=== PATIENT | female | born 1935 | race Caucasian/White ===

== ENCOUNTER 2016-02-14 20:04 | Inpatient (IN) ==
--- NOTE | 2016-02-14 20:31 | Emergency Department Note ---
Disposition Clinical Impression: Community acquired pneumonia Disposition: Admitted As Inpatient Condition: Good Referrals: Dane Thomas MD [Primary Care Provider] - Forms: ED Satisfaction Letter SOB HPI - General Chief Complaint: ED Shortness of Breath/Dyspnea Stated Complaint: SOB / Falls Time Seen by Provider: 02/14/16 20:07 Source: patient, EMS Limitations: no limitations Nursing Notes Reviewed: Yes Vital Signs Reviewed: Yes - History of Present Illness Patient complains of a fall off the couch today. Patient she was going to use the bathroom and had a slip and fall. Patient states she had her right side and complains of pain in the area. Patient claims shortness of breath with states this is normal for her as she has a history of COPD. Patient does not chest pain denies fevers or chills denies vision changes. - Related Data Home Medications Medication Instructions Recorded Confirmed Amlodipine [Norvasc] 2.5 mg PO DAILY 01/21/15 02/14/16 Ipratropium/Albuterol Neb [Duoneb] 3 ml IH Q6HR PRN 01/21/15 02/14/16 Lisinopril [Zestril] 40 mg PO DAILY 01/21/15 02/14/16 Pravastatin Sodium [Pravachol] 40 mg PO DAILY 01/21/15 02/14/16 Theophylline Anhydrous [Theodur] 300 mg PO DAILY 01/21/15 02/14/16 Isosorbide DInitrate [Isosorbide 10 mg PO BID 07/06/15 02/14/16 Dinitrate] Oxybutynin Chloride [Ditropan Xl] 5 mg PO DAILY 07/28/15 02/14/16 Oxygen 4 l NS CONT 07/28/15 02/14/16 Budesonide/Formoterol 160/4.5 2 puff IH BID 11/12/15 02/14/16 [Symbicort 160/4.5] Metoprolol [Lopressor] 25 mg PO BID 11/12/15 02/14/16 Tiotropium [Spiriva] 18 mcg IH DAILY 11/12/15 02/14/16 Cholecalciferol (Vitamin D3) 3,000 unit PO DAILY 12/20/15 02/14/16 [Vitamin D3] Omeprazole [PriLOSEC] 40 mg PO DAILY 12/20/15 02/14/16 Rivaroxaban [Xarelto] 20 mg PO HS 01/10/16 02/14/16 Furosemide [Lasix] 20 mg PO DAILY 02/14/16 02/14/16 HYDROcodone/Acet 5/325 mg [Star 1 tab PO Q6H PRN 02/14/16 02/14/16 5-325 mg] Previous Rx's Medication Instructions Recorded Docusate [Colace] 100 mg PO BID #30 capsule 12/24/15 Doxycycline 100 mg PO BID #6 capsule 01/14/16 Allergies Allergy/AdvReac Type Severity Reaction Status Date / Time acetaminophen [From Tylenol] Allergy Unknown See Verified 02/14/16 22:38 Comments Amoxicillin Allergy Unknown See Verified 02/14/16 22:38 Comments clarithromycin Allergy Unknown See Verified 02/14/16 22:38 Comments clavulanic acid Allergy Unknown See Verified 02/14/16 22:38 Comments codeine Allergy Unknown See Verified 02/14/16 22:38 Comments gabapentin Allergy Unknown See Verified 02/14/16 22:38 Comments Iodinated Contrast Media - Allergy Unknown See Verified 02/14/16 22:38 Oral and Comments Penicillins Allergy Unknown See Verified 02/14/16 22:38 Comments Sulfa (Sulfonamide Allergy Unknown See Verified 02/14/16 22:38 Antibiotics) Comments All systems ED: reviewed and negative except as stated. Past Medical History - Past Medical History Source: patient Medical history: Reports: arthritis, COPD, coronary artery disease, GERD, GI bleed, hyperlipidemia, hypertension, myocardial infarction, osteoporosis, pulmonary embolus, renal disease, SVT, other Surgical history: Reports: cataract, other Psychiatric history: Reports: anxiety, depression - Social History Smoking Status: Former smoker Smokeless Tobacco Status: No Alcohol use: Reports: none Drug use: Reports: none Physical Exam - General Limitations: no limitations General appearance: alert, in no apparent distress, anxious - Head Head exam: atraumatic, normocephalic, normal inspection - Eye Eye exam: Present: normal appearance, PERRL, EOMI - ENT ENT exam: normal exam, normal oropharynx, mucous membranes moist - Neck Neck exam: Present: normal inspection, full ROM, trachea midline - Chest Chest inspection: Present: normal inspection, symmetric chest wall rise - Respiratory Respiratory exam: Present: accessory muscle use, other (Right lower rib pain to palpation) - Cardiovascular Cardiovascular exam: Present: normal rhythm, tachycardia, normal heart sounds - Abdominal Exam Abdominal exam: Present: soft, Non-Tender. Absent: tenderness, distention, guarding, rebound, rigidity - Extremities Exam Extremities exam: Present: normal inspection, full ROM. Absent: tenderness, pedal edema - Back Exam Back exam: Present: normal inspection, full ROM. Absent: tenderness - Neurological Exam Neurological exam: Present: alert, oriented X3 - Psychiatric Psychiatric exam: Present: normal affect, normal mood - Skin Skin exam: Present: warm, dry, intact, normal color Course Vital Signs Temperature 99.6 F 02/14/16 20:07 Pulse Rate 121 02/14/16 20:07 Respiratory Rate 36 02/14/16 20:07 Blood Pressure 130/79 02/14/16 20:07 O2 Sat by Pulse Oximetry 98 02/14/16 20:07 Temperature 99.6 F 02/14/16 20:07 Pulse Rate 107 02/14/16 22:02 Respiratory Rate 24 02/14/16 22:02 Blood Pressure 121/77 02/14/16 22:02 O2 Sat by Pulse Oximetry 93 L 02/14/16 22:02 Oxygen Delivery Oxygen Delivery Nasal Cannula Shortness of Breath/Dyspnea - Differential Diagnosis Likely: acute exacerbation of chronic obstructive airways disease, congestive heart failure, pneumonia, pulmonary embolism - Lab Data Lab results reviewed: Yes I reviewed the patient's lab results. Result diagrams: 02/14/16 21:05 02/14/16 21:05 Lab Results 02/14/16 02/14/16 02/14/16 Range/Units 21:05 21:05 21:05 WBC 17.0 H (4.3-11.1) K/mcL RBC 4.16 (3.82-4.97) M/mcL Hgb 12.7 (11.5-15.4) g/dL Hct 37.1 (35.3-44.9) % MCV 89.2 (83.0-100.0) fL MCH 30.5 (28.0-33.3) pg MCHC 34.2 (31.6-35.5) g/dL RDW 13.8 (11.5-14.5) % Plt Count 294 (140-400) K/mcL MPV 9.2 L (9.4-12.4) fL Immature Gran % 0.5 (0-4) % Seg Neutrophils % 89.3 % Lymphocytes % 6.2 % Monocytes % 3.5 % Eosinophils % 0.3 % Basophils % 0.2 % Neutrophils # 15.2 H (1.6-8.9) K/mcL Lymphocytes # 1.1 (0.6-4.6) K/mcL Monocytes # 0.6 (0.0-1.3) K/mcL Eosinophils # 0.1 (0.0-0.6) K/mcL Basophils # 0.0 (0.0-0.2) K/mcL PT 19.0 H (9.4-12.1) Seconds INR 1.7 APTT 29.2 (26.0-36.0) Seconds Sodium 133 L (136-145) mEq/L Potassium 2.9 L (3.5-4.5) mEq/L Chloride 98 (98-109) mEq/L Carbon Dioxide 24 (19-29) mEq/L BUN 13 (7-20) mg/dL Creatinine 0.83 (0.57-1.11) mg/dL Est GFR ( Amer) > 60 (> 60) Est GFR (Non-Af Amer) > 60 (> 60) BUN/Creatinine Ratio 16 (6-26) Glucose 109 H (70-99) mg/dL Calculated Osmolality 277 L (280-300) Lactic Acid (0.5-2.2) mmol/L Calcium 8.3 L (8.6-10.8) mg/dL Total Bilirubin 0.7 (0.2-1.2) mg/dL AST 27 (5-34) Units/L ALT 17 (0-55) Units/L Alkaline Phosphatase 97 (38-126) Units/L Troponin I (0-0.03) ng/mL B-Natriuretic Peptide (0-100) pg/mL Serum Total Protein 5.7 L (6.0-8.3) g/dL Albumin 2.6 L (3.5-5.0) g/dL Globulin 3.1 (2.4-3.5) g/dL Albumin/Globulin Ratio 0.8 L (1.1-2.2) 02/14/16 02/14/16 02/14/16 Range/Units 21:05 21:05 21:05 WBC (4.3-11.1) K/mcL RBC (3.82-4.97) M/mcL Hgb (11.5-15.4) g/dL Hct (35.3-44.9) % MCV (83.0-100.0) fL MCH (28.0-33.3) pg MCHC (31.6-35.5) g/dL RDW (11.5-14.5) % Plt Count (140-400) K/mcL MPV (9.4-12.4) fL Immature Gran % (0-4) % Seg Neutrophils % % Lymphocytes % % Monocytes % % Eosinophils % % Basophils % % Neutrophils # (1.6-8.9) K/mcL Lymphocytes # (0.6-4.6) K/mcL Monocytes # (0.0-1.3) K/mcL Eosinophils # (0.0-0.6) K/mcL Basophils # (0.0-0.2) K/mcL PT (9.4-12.1) Seconds INR APTT (26.0-36.0) Seconds Sodium (136-145) mEq/L Potassium (3.5-4.5) mEq/L Chloride (98-109) mEq/L Carbon Dioxide (19-29) mEq/L BUN (7-20) mg/dL Creatinine (0.57-1.11) mg/dL Est GFR ( Amer) (> 60) Est GFR (Non-Af Amer) (> 60) BUN/Creatinine Ratio (6-26) Glucose (70-99) mg/dL Calculated Osmolality (280-300) Lactic Acid 1.4 (0.5-2.2) mmol/L Calcium (8.6-10.8) mg/dL Total Bilirubin (0.2-1.2) mg/dL AST (5-34) Units/L ALT (0-55) Units/L Alkaline Phosphatase (38-126) Units/L Troponin I 0.08 H* (0-0.03) ng/mL B-Natriuretic Peptide 160 H (0-100) pg/mL Serum Total Protein (6.0-8.3) g/dL Albumin (3.5-5.0) g/dL Globulin (2.4-3.5) g/dL Albumin/Globulin Ratio (1.1-2.2) - Radiology Data Radiology results reviewed: Yes I reviewed the patient's radiology results. Chest X-Ray 02/14/16 20:23 IMPRESSION: Right lower lobe opacity suspicious for pneumonia, possibly postobstructive. Subpleural right lower lobe mass and enlarged mediastinal lymph nodes identified on prior CT are not well appreciated in this limited radiographic study. D/ / Devon Yan MD / Devon Yan MD Interpreting Provider: Devon Yan MD - EKG Data EKG attestation: Yes I reviewed and interpreted this EKG. EKG shows normal: Reports: sinus rhythm Rate: Reports: tachycardia Critical Care Time Total Critical Care Time: 30 Attestation: Chest X-Ray 02/14/16 20:23 IMPRESSION: Right lower lobe opacity suspicious for pneumonia, possibly postobstructive. Subpleural right lower lobe mass and enlarged mediastinal lymph nodes identified on prior CT are not well appreciated in this limited radiographic study. D/ / 02/14/2016 21:31:03 Devon Yan MD / frances Interpreting Provider: Devon Yan MD
[2016-02-14 21:14] LABS: Basophils % 0.2 %; Eosinophils # 0.1 K/mcL (0.0-0.6); Eosinophils % 0.3 %; Hematocrit 37.1 % (35.3-44.9); Hemoglobin 12.7 g/dL (11.5-15.4); Immature Granulocytes % 0.5 % (0-4); Lymphocytes # 1.1 K/mcL (0.6-4.6); Lymphocytes % 6.2 %; Mean Corpuscular HGB Conc 34.2 g/dL (31.6-35.5); Mean Corpuscular Hemoglobin 30.5 pg (28.0-33.3); Mean Corpuscular Volume 89.2 fL (83.0-100.0); Mean Platelet Volume 9.2 fL (9.4-12.4); Monocytes # 0.6 K/mcL (0.0-1.3); Monocytes % 3.5 %; Neutrophils # 15.2 K/mcL (1.6-8.9); Platelet Count 294 K/mcL (140-400); Red Blood Count 4.16 M/mcL (3.82-4.97); Red Cell Distribution Width 13.8 % (11.5-14.5); Segmented Neutrophils % 89.3 %
[2016-02-14 21:20] LABS: INR 1.7
[2016-02-14 21:23] LABS: Activated Partial Thrombo Time 29.2 Seconds (26.0-36.0)
[2016-02-14] MEDS ORDERED: Levofloxacin 750 MG/150 ML 750 MG/150 ML BAG IVPB ONE (21:28)
[2016-02-14 21:30] LABS: Alanine Aminotransferase 17 Units/L (0-55); Albumin 2.6 g/dL (3.5-5.0); Albumin/Globulin Ratio 0.8 (1.1-2.2); Alkaline Phosphatase 97 Units/L (38-126); Aspartate Amino Transferase 27 Units/L (5-34); BUN/Creatinine Ratio 16 (6-26); Bilirubin,Total 0.7 mg/dL (0.2-1.2); Blood Urea Nitrogen 13 mg/dL (7-20); Calcium 8.3 mg/dL (8.6-10.8); Carbon Dioxide 24 mEq/L (19-29); Chloride 98 mEq/L (98-109); Globulin 3.1 g/dL (2.4-3.5); Glucose 109 mg/dL (70-99); Osmolality,Calculated 277 (280-300); Potassium 2.9 mEq/L (3.5-4.5); Sodium 133 mEq/L (136-145); Total Protein 5.7 g/dL (6.0-8.3); eGFR For African Americans > 60 (> 60); eGFR For Non-African Americans > 60 (> 60)
[2016-02-15] MEDS ORDERED: Ipratropium/Albuterol Neb 3 ML ONE (00:22)
[2016-02-15] MEDS ORDERED: Naloxone 0.4 MG/ML INJ IVP PRN (00:49)
--- NOTE | 2016-02-15 00:56 | Internal Med History&Physical ---
Date of Encounter: 02/15/16 Time of Encounter: 00:54 Assessment and Plan (1) Community acquired pneumonia Current visit: Yes Status: Suspected Worsening SOB after fall Diffuse intermittent wheezing and using accessory muscles on exam Leukocytosis present CXR reveals possible RLL infiltrate. Pt. has dense breasts. May be shadow. Admit as inpatient. Expect her to stay at least 2 midnights Duonebs. Levaquin PO for now. If poor response, will consider escalation due to recurrent hospital stays and risk of MRSA, Pseudomonas and MDR E.coli High risk due to risk of resp. failure that may need intubation and mechanical ventilation She is FULL CODE and wants to be intubated. Mech. vent. for 20 days after which her daughter can decide regarding withdrawal of care per the patient BIPAP support (2) Acute chest wall pain Current visit: Yes Status: Acute From fall Lidoderm patch (3) Acute respiratory failure with hypoxia Current visit: Yes Status: Acute As above BIPAP for now (4) COPD (chronic obstructive pulmonary disease) Current visit: Yes Status: Chronic Acute COPD exacerbation due to pneumonia Will start iv steroids Levaquin PO Qualifiers: COPD type: COPD with acute exacerbation Qualified Code(s): J44.1 - Chronic obstructive pulmonary disease with (acute) exacerbation (5) Hypertension Current visit: Yes Status: Chronic Resume home meds Qualifiers: Hypertension type: essential hypertension Qualified Code(s): I10 - Essential (primary) hypertension (6) Lung mass Current visit: No Status: Chronic Chronic Oncology consult and notes reviewed No intervention per prior notes due to high risk of pneumothorax with CT biopsy of mass. Out pt. oncology follow up per oncology notes (7) Pulmonary embolism Current visit: Yes Status: Chronic Continue xarelto Qualifiers: Pulmonary embolism type: other Chronicity: acute Acute cor pulmonale presence: without acute cor pulmonale Qualified Code(s): I26.99 - Other pulmonary embolism without acute cor pulmonale Internal Medicine - H&P: HPI Chief complaint: Fall; SOB Admitted From: Emergency Dept Plans for Post Hospital Care: Home History of present illness: Ms. Jones is a 80 year old female to presented to the emergency room after she had a fall. The patient states that she slid out of her couch and hit the right side of her chest. She has pain on the right chest that is sharp in nature with no radiation of 5/10. Aggravated with breathing. Associated with shortness of breath worse than her baseline. No cough but has wheezing. No nausea or vomiting. Reports chronic constipation. Past Med Surg Social Fam HX - Past Medical History Attestation: Yes The following information was validated with the patient. Source: patient, old records reviewed Medical history: arthritis, COPD, coronary artery disease, GERD, GI bleed, hyperlipidemia, hypertension, myocardial infarction, osteoporosis, pulmonary embolus, renal disease, SVT, other Psychiatric history: anxiety, depression - Past Surgical History Surgical History: cataract, other - Social History Smoking Status: Former smoker Smokeless Tobacco Status: No Alcohol use: none Drug use: none - Family History Mother Living Status: Hx Family Cardiac Disorders: (HTN) Hx Family Neurologic Disorders: Yes (alzheimers) Father Living Status: Hx Family Cancer: Yes (brain cancer) Son Adopted: No Living Status: Daughter Adopted: No Living Status: Still Living Hx Family Cancer: Yes (melanoma) Internal Medicine - H&P: Meds Amlodipine [Norvasc] 2.5 mg PO DAILY 01/21/15 [History] Ipratropium/Albuterol Neb [Duoneb] 3 ml IH Q6HR PRN 01/21/15 [History] Lisinopril [Zestril] 40 mg PO DAILY 01/21/15 [History] Pravastatin Sodium [Pravachol] 40 mg PO DAILY 01/21/15 [History] Theophylline Anhydrous [Theodur] 300 mg PO DAILY 01/21/15 [History] Isosorbide DInitrate [Isosorbide Dinitrate] 10 mg PO BID 07/06/15 [History] Oxybutynin Chloride [Ditropan Xl] 5 mg PO DAILY 07/28/15 [History] Oxygen 4 l NS CONT 07/28/15 [History] Budesonide/Formoterol 160/4.5 [Symbicort 160/4.5] 2 puff IH BID 11/12/15 [ History] Metoprolol [Lopressor] 25 mg PO BID 11/12/15 [History] Tiotropium [Spiriva] 18 mcg IH DAILY 11/12/15 [History] Cholecalciferol (Vitamin D3) [Vitamin D3] 3,000 unit PO DAILY 12/20/15 [History] Omeprazole [PriLOSEC] 40 mg PO DAILY 12/20/15 [History] Docusate [Colace] 100 mg PO BID #30 capsule 12/24/15 [Rx] Rivaroxaban [Xarelto] 20 mg PO HS 01/10/16 [History] Doxycycline 100 mg PO BID #6 capsule 01/14/16 [Rx] Furosemide [Lasix] 20 mg PO DAILY 02/14/16 [History] HYDROcodone/Acet 5/325 mg [Taylor 5-325 mg] 1 tab PO Q6H PRN 02/14/16 [History] Allergies acetaminophen [From Tylenol] Allergy (Unknown, Verified 02/14/16 22:38) See Comments UNABLE TO CONFIRM REACTION- ALL ALLERGIES TAKEN FROM [facility] LAST APPT. Amoxicillin Allergy (Unknown, Verified 02/14/16 22:38) See Comments UNABLE TO CONFIRM REACTION- ALL ALLERGIES TAKEN FROM [facility] LAST APPT. clarithromycin Allergy (Unknown, Verified 02/14/16 22:38) See Comments UNABLE TO CONFIRM REACTION- ALL ALLERGIES TAKEN FROM [facility] LAST APPT. clavulanic acid Allergy (Unknown, Verified 02/14/16 22:38) See Comments UNABLE TO CONFIRM REACTION- ALL ALLERGIES TAKEN FROM [facility] LAST APPT. codeine Allergy (Unknown, Verified 02/14/16 22:38) See Comments UNABLE TO CONFIRM REACTION- ALL ALLERGIES TAKEN FROM [facility] LAST APPT. gabapentin Allergy (Unknown, Verified 02/14/16 22:38) See Comments UNABLE TO CONFIRM REACTION- ALL ALLERGIES TAKEN FROM [facility] LAST APPT. Iodinated Contrast Media - Oral and Allergy (Unknown, Verified 02/14/16 22:38) See Comments UNABLE TO CONFIRM REACTION- ALL ALLERGIES TAKEN FROM [facility] LAST APPT. Penicillins Allergy (Unknown, Verified 02/14/16 22:38) See Comments UNABLE TO CONFIRM REACTION- ALL ALLERGIES TAKEN FROM [facility] LAST APPT. Sulfa (Sulfonamide Antibiotics) Allergy (Unknown, Verified 02/14/16 22:38) See Comments UNABLE TO CONFIRM REACTION- ALL ALLERGIES TAKEN FROM [facility] LAST APPT. All Systems PM: A 10-system review of systems was performed and is negative for pertinent findings except as documented above in the HPI. Review of systems: 10 systems have been reviewed and are negative except as mentioned in the history of present illness - Constitutional Vitals: Temp Pulse Resp BP Pulse Ox 100.1 F H 98 35 126/79 93 L 02/15/16 00:15 02/15/16 00:15 02/15/16 00:15 02/15/16 00:15 02/15/16 00:15 Exam: Gen.: Lying in bed. Moderate to severe respiratory distress. Eyes: Pupils equal, round and reactive to light. Extraocular muscles intact. ENT: Dry mucous membranes. No oropharyngeal erythema or discharge. Chest: Reduced breath sounds bilaterally. Intermittent diffuse wheezing present. CVS: First and second heart sounds present. No murmurs, rubs or gallops. Abdomen: Soft, nontender, nondistended. Bowel sounds present. No hepatosplenomegaly. Skin: No decubitus ulcers appreciated. PILOT: No focal neuro deficits present. Psychiatric: Alert, awake and oriented to time, place and person. Lymphatic system: No lymphadenopathy appreciated Internal Med - H&P Results - Labs CBC & Chem 7: 02/14/16 21:05 02/14/16 21:05 - Diagnostic Studies Chest x-ray Status: image reviewed by me (RLL infiltrate vs breast shadows)
[2016-02-15] MEDS ORDERED: NON-FORMULARY MEDICATION 1 EACH EACH (Oxygen [Oxygen] 4 L) NS SCH (01:00)
[2016-02-15] MEDS ORDERED: methylPREDNISolone 125 MG/2 ML VIAL IVP ONE (01:10)
[2016-02-15] MEDS: Ipratropium/Albuterol Neb 3 ML IH SCH ×4 (03:11→21:56)
[2016-02-15] MEDS: *HR* HYDROcodone/Acet 5/325 mg TABLET PO PRN ×2 (03:54→17:27)
[2016-02-15 05:04] LABS: Basophils % 0.2 %; Eosinophils % 0.1 %; Hemoglobin 12.1 g/dL (11.5-15.4); Immature Granulocytes % 0.5 % (0-4); Lymphocytes # 1.6 K/mcL (0.6-4.6); Lymphocytes % 10.5 %; Mean Corpuscular HGB Conc 34.6 g/dL (31.6-35.5); Mean Corpuscular Hemoglobin 30.9 pg (28.0-33.3); Mean Corpuscular Volume 89.3 fL (83.0-100.0); Monocytes # 0.7 K/mcL (0.0-1.3); Monocytes % 4.2 %; Neutrophils # 13.1 K/mcL (1.6-8.9); Platelet Count 268 K/mcL (140-400); Red Blood Count 3.92 M/mcL (3.82-4.97); Red Cell Distribution Width 13.7 % (11.5-14.5); Segmented Neutrophils % 84.5 %
[2016-02-15 05:24] LABS: Alanine Aminotransferase 17 Units/L (0-55); Albumin 2.4 g/dL (3.5-5.0); Albumin/Globulin Ratio 0.8 (1.1-2.2); Alkaline Phosphatase 89 Units/L (38-126); Aspartate Amino Transferase 25 Units/L (5-34); BUN/Creatinine Ratio 16 (6-26); Bilirubin,Total 0.8 mg/dL (0.2-1.2); Blood Urea Nitrogen 13 mg/dL (7-20); Calcium 8.1 mg/dL (8.6-10.8); Carbon Dioxide 26 mEq/L (19-29); Chloride 93 mEq/L (98-109); Globulin 2.9 g/dL (2.4-3.5); Glucose 108 mg/dL (70-99); Osmolality,Calculated 271 (280-300); Potassium 2.8 mEq/L (3.5-4.5); Sodium 130 mEq/L (136-145); Total Protein 5.3 g/dL (6.0-8.3); eGFR For African Americans > 60 (> 60); eGFR For Non-African Americans > 60 (> 60)
[2016-02-15] MEDS: MethylPREDNISolone 40 MG/ML VIAL IVP SCH ×2 (09:21→17:27)
[2016-02-15] MEDS: Cholecalciferol (D-3) 1,000 UNIT TABLET PO SCH (09:22)
[2016-02-15] MEDS: amLODIPine 5 MG TABLET PO SCH (09:22)
[2016-02-15] MEDS: levoFLOXacin 750 MG TABLET PO SCH (09:22)
[2016-02-15] MEDS: Budesonide/Formoterol 160/4.5 MDI IH SCH ×2 (11:35→21:57)
--- NOTE | 2016-02-15 13:53 | Internal Med Progress Note ---
Date of Encounter: 02/15/16 Time of Encounter: 11:00 - Assessment and plan (1) Acute respiratory failure with hypoxia Current Visit: Yes Status: Acute Assessment and plan: Continue supplemental O2. Continue bronchodilator nebulizers. Due to COPD and pneumonia (2) Acute chest wall pain Current Visit: Yes Status: Acute Assessment and plan: Improved. Mild troponin elevation to a peak of 0.09. Likely due to demand ischemia. Trending down now. (3) COPD (chronic obstructive pulmonary disease) Current Visit: Yes Status: Chronic Assessment and plan: On intravenous steroids, nebulizer treatments, O2 supplementation. Continue. Also on levofloxacin. Qualifiers: COPD type: COPD with acute exacerbation Qualified Code(s): J44.1 - Chronic obstructive pulmonary disease with (acute) exacerbation (4) Hypertension Current Visit: Yes Status: Chronic Assessment and plan: Well-controlled. Qualifiers: Hypertension type: essential hypertension Qualified Code(s): I10 - Essential (primary) hypertension (5) Pulmonary embolism Current Visit: Yes Status: Chronic Assessment and plan: Chronic. On Xarelto Qualifiers: Pulmonary embolism type: other Chronicity: acute Acute cor pulmonale presence: without acute cor pulmonale Qualified Code(s): I26.99 - Other pulmonary embolism without acute cor pulmonale (6) Community acquired pneumonia Current Visit: Yes Status: Suspected Assessment and plan: On Levofloxacin. - Subjective Interval history: Patient feels her breathing is improved compared to yesterday. She does complain of nasal congestion. Continues to use accessory muscles. Able to complete sentences but getting short of breath in between. - Constitutional Vitals: Temp Pulse Resp BP Pulse Ox 98.0 F 84 25 102/61 99 02/15/16 10:26 02/15/16 10:26 02/15/16 11:37 02/15/16 10:26 02/15/16 11:37 General appearance: Present: cooperative, A&O X 3, pleasant, answers questions appropriately Exam: Moderate distress - Respiratory Respiratory exam: Present: accessory muscle use, decreased breath sounds ( Diminished bilaterally), prolonged expiratory phase, wheezes (Bilateral), tachypnea. Absent: rales, rhonchi - Cardiovascular Cardiovascular exam: Present: RRR, +S1, +S2. Absent: diastolic murmur, gallop, rubs, systolic murmur - GI/Abdominal GI/Abdominal exam: Present: normal bowel sounds, soft, no peritoneal signs. Absent: distended, tenderness - Extremities Exam Extremities exam: Present: warm, radial pulses palpable and symetrical. Absent : calf tenderness, cyanotic, pedal edema - Neurological Exam Neurological exam: Present: CN II-XII intact, oriented X3, no focal deficits. Absent: facial droop, speech deficit Internal Medicine: Result - Labs CBC & Chem 7: 02/15/16 03:47 02/15/16 03:47 Labs: Cardiac Enzymes 02/15/16 Range/Units 09:27 Troponin I 0.08 H* (0-0.03) ng/mL - ABG Interpretation ABG results: PT/INR, D-dimer PT 19.0 Seconds (9.4-12.1) H 02/14/16 21:05 - Impressions Impressions Chest X-Ray 02/15/16 06:00 IMPRESSION: Patchy right basilar airspace disease could represent atelectasis or pneumonia. D/ / Catracho Guevara MD / Catracho Guevara MD Interpreting Provider: Catracho Guevara MD Consult Discharge Plan - Plan Referrals: Dane Thomas MD [Primary Care Provider] - - Attending Attestation This document has been at least partially created by [employer] recognition technology by Dr. Gee. Errors in grammar, wording or other phrases may exist. If errors are found after the documentation is signed, they will be addressed individually in the addendum section of this document when appropriate.
--- NOTE | 2016-02-15 14:30 | Electrocardiograph Report ---
[facility] Test Date: 2016-02-14 Pat Name: Guillermina Jones Department: 104 Room: 3A55 Gender: F [employer] Assistant: EC : [id number] Requested By: Jimmie Tracey Order Number: [id number] Reading MD: Ryan Albert Measurements Intervals [place] Rate: 118 P: -31 CO: 242 QRS: -44 QRSD: 153 T: 91 QT: 379 QTc: 449 Interpretive Statements SINUS TACHYCARDIA WITH FIRST DEGREE AV BLOCK WITH OCCASIONAL SUPRAVENTRICULAR PREMATURE COMPLEXES LEFT ATRIAL ENLARGEMENT MARKED LEFT AXIS DEVIATION LEFT BUNDLE BRANCH BLOCK Electronically Signed On 02-15-16 14:29:08 EST by Ryan Albert
[2016-02-15] MEDS: *HR* Rivaroxaban 10 MG TABLET PO SCH (20:30)
[2016-02-16] MEDS: MethylPREDNISolone 40 MG/ML VIAL IVP SCH ×3 (00:22→15:03)
[2016-02-16] MEDS: Ipratropium/Albuterol Neb 3 ML IH SCH ×4 (03:28→20:28)
[2016-02-16] MEDS: levoFLOXacin 750 MG TABLET PO SCH (07:55)
[2016-02-16] MEDS: amLODIPine 5 MG TABLET PO SCH (07:55)
[2016-02-16] MEDS: Ondansetron 4 MG/2 ML VIAL IVP PRN ×2 (07:55→16:29)
[2016-02-16] MEDS: Cholecalciferol (D-3) 1,000 UNIT TABLET PO SCH (07:56)
[2016-02-16 08:46] LABS: Basophils % 0.1 %; Immature Granulocytes % 0.7 % (0-4); Lymphocytes # 1.1 K/mcL (0.6-4.6); Mean Corpuscular HGB Conc 34.3 g/dL (31.6-35.5); Mean Corpuscular Hemoglobin 29.9 pg (28.0-33.3); Mean Corpuscular Volume 87.3 fL (83.0-100.0); Mean Platelet Volume 9.5 fL (9.4-12.4); Monocytes % 4.4 %; Neutrophils # 19.4 K/mcL (1.6-8.9); Platelet Count 308 K/mcL (140-400); Red Blood Count 4.01 M/mcL (3.82-4.97); Red Cell Distribution Width 13.7 % (11.5-14.5); Segmented Neutrophils % 89.8 %
[2016-02-16 09:00] LABS: BUN/Creatinine Ratio 23 (6-26); Blood Urea Nitrogen 16 mg/dL (7-20); Calcium 8.6 mg/dL (8.6-10.8); Carbon Dioxide 25 mEq/L (19-29); Chloride 99 mEq/L (98-109); Glucose 227 mg/dL (70-99); Osmolality,Calculated 280 (280-300); Sodium 131 mEq/L (136-145); eGFR For African Americans > 60 (> 60); eGFR For Non-African Americans > 60 (> 60)
[2016-02-16 09:01] LABS: Potassium 4.4 mEq/L (3.5-4.5)
[2016-02-16] MEDS: Budesonide/Formoterol 160/4.5 MDI IH SCH ×2 (09:05→20:28)
[2016-02-16] MEDS: *HR* HYDROcodone/Acet 5/325 mg TABLET PO PRN (15:03)
[2016-02-16] MEDS ORDERED: Benzocaine 20% 9 GM GEL..GRAM. TP PRN (16:57)
--- NOTE | 2016-02-16 17:05 | Internal Med Progress Note ---
Date of Encounter: 02/16/16 Time of Encounter: 17:03 - Assessment and plan (1) Acute respiratory failure with hypoxia Current Visit: Yes Status: Acute Assessment and plan: Patient on 5 L O2 supplementation. Continue to wean FiO2 as tolerated. (2) Acute chest wall pain Current Visit: Yes Status: Resolved (3) COPD (chronic obstructive pulmonary disease) Current Visit: Yes Status: Chronic Assessment and plan: On IV steroids. We will wean steroids. Continue nebulizer treatments. Qualifiers: COPD type: COPD with acute exacerbation Qualified Code(s): J44.1 - Chronic obstructive pulmonary disease with (acute) exacerbation (4) Hypertension Current Visit: Yes Status: Chronic Assessment and plan: Well controlled. No changes at this time. Qualifiers: Hypertension type: essential hypertension Qualified Code(s): I10 - Essential (primary) hypertension (5) Pulmonary embolism Current Visit: Yes Status: Chronic Assessment and plan: On Xarelto Qualifiers: Pulmonary embolism type: other Chronicity: acute Acute cor pulmonale presence: without acute cor pulmonale Qualified Code(s): I26.99 - Other pulmonary embolism without acute cor pulmonale (6) Community acquired pneumonia Current Visit: Yes Status: Suspected Assessment and plan: WBC count elevated further today. Likely due to intravenous steroids. We will wean steroids. Continue Levaquin. - Subjective Interval history: Patient complaining of oral pain in the inner side of her lower lip. Respiratory status is improving. Denies any chest pain. No hemoptysis. No nausea or vomiting - Constitutional Vitals: Temp Pulse Resp BP Pulse Ox 98.1 F 98 18 108/64 95 02/16/16 16:02 02/16/16 16:02 02/16/16 16:25 02/16/16 16:02 02/16/16 16:25 General appearance: Present: cooperative, mild distress, A&O X 3, pleasant, answers questions appropriately - Respiratory Respiratory exam: Present: accessory muscle use, decreased breath sounds ( Diminished breath sounds bilaterally), prolonged expiratory phase. Absent: chest wall tenderness, rales, rhonchi, wheezes - Cardiovascular Cardiovascular exam: Present: RRR, +S1, +S2. Absent: diastolic murmur, gallop, rubs, systolic murmur - GI/Abdominal GI/Abdominal exam: Present: normal bowel sounds, soft, no peritoneal signs. Absent: distended, tenderness - Neurological Exam Neurological exam: Present: CN II-XII intact, oriented X3, no focal deficits. Absent: facial droop, speech deficit Internal Medicine: Result - Labs CBC & Chem 7: 02/16/16 08:21 02/16/16 08:21 Labs: Short CBC 02/16/16 Range/Units 08:21 WBC 21.6 H (4.3-11.1) K/mcL Hgb 12.0 (11.5-15.4) g/dL Hct 35.0 L (35.3-44.9) % Plt Count 308 (140-400) K/mcL Neutrophils # 19.4 H (1.6-8.9) K/mcL BMP 02/16/16 08:21 Sodium 131 L Potassium 4.4 D Chloride 99 Carbon Dioxide 25 BUN 16 Creatinine 0.71 Glucose 227 H Calcium 8.6 - ABG Interpretation ABG results: PT/INR, D-dimer PT 19.0 Seconds (9.4-12.1) H 02/14/16 21:05 Consult Discharge Plan - Plan Referrals: Dane Thomas MD [Primary Care Provider] - - Attending Attestation This document has been at least partially created by [employer] recognition technology by Dr. Gee. Errors in grammar, wording or other phrases may exist. If errors are found after the documentation is signed, they will be addressed individually in the addendum section of this document when appropriate. Medical Decision Making - MDM Narrative Medical decision making narrative: Moderate risk for complications - Lab Data Result diagrams: 02/16/16 08:21 02/16/16 08:21 Lab Results 02/15/16 02/16/16 02/16/16 Range/Units 09:27 08:21 08:21 WBC 21.6 H (4.3-11.1) K/mcL RBC 4.01 (3.82-4.97) M/mcL Hgb 12.0 (11.5-15.4) g/dL Hct 35.0 L (35.3-44.9) % MCV 87.3 (83.0-100.0) fL MCH 29.9 (28.0-33.3) pg MCHC 34.3 (31.6-35.5) g/dL RDW 13.7 (11.5-14.5) % Plt Count 308 (140-400) K/mcL MPV 9.5 (9.4-12.4) fL Immature Gran % 0.7 (0-4) % Seg Neutrophils % 89.8 % Lymphocytes % 5.0 % Monocytes % 4.4 % Eosinophils % 0.0 % Basophils % 0.1 % Neutrophils # 19.4 H (1.6-8.9) K/mcL Lymphocytes # 1.1 (0.6-4.6) K/mcL Monocytes # 1.0 (0.0-1.3) K/mcL Eosinophils # 0.0 (0.0-0.6) K/mcL Basophils # 0.0 (0.0-0.2) K/mcL Sodium 131 L (136-145) mEq/L Potassium 4.4 D (3.5-4.5) mEq/L Chloride 99 (98-109) mEq/L Carbon Dioxide 25 (19-29) mEq/L BUN 16 (7-20) mg/dL Creatinine 0.71 (0.57-1.11) mg/dL Est GFR ( Amer) > 60 (> 60) Est GFR (Non-Af Amer) > 60 (> 60) BUN/Creatinine Ratio 23 (6-26) Glucose 227 H (70-99) mg/dL Calculated Osmolality 280 (280-300) Calcium 8.6 (8.6-10.8) mg/dL Troponin I 0.08 H* (0-0.03) ng/mL
[2016-02-16] MEDS: *HR* Rivaroxaban 10 MG TABLET PO SCH (20:09)
[2016-02-17] MEDS: *HR* HYDROcodone/Acet 5/325 mg TABLET PO PRN ×3 (00:02→21:19)
[2016-02-17] MEDS: Ipratropium/Albuterol Neb 3 ML IH SCH ×4 (04:22→21:03)
[2016-02-17 08:15] LABS: Basophils % 0.1 %; Hematocrit 35.3 % (35.3-44.9); Hemoglobin 11.7 g/dL (11.5-15.4); Immature Granulocytes % 1.4 % (0-4); Lymphocytes # 1.3 K/mcL (0.6-4.6); Lymphocytes % 4.8 %; Mean Corpuscular HGB Conc 33.1 g/dL (31.6-35.5); Mean Corpuscular Hemoglobin 29.6 pg (28.0-33.3); Mean Corpuscular Volume 89.4 fL (83.0-100.0); Mean Platelet Volume 9.5 fL (9.4-12.4); Monocytes # 1.8 K/mcL (0.0-1.3); Monocytes % 6.7 %; Neutrophils # 22.9 K/mcL (1.6-8.9); Platelet Count 327 K/mcL (140-400); Red Blood Count 3.95 M/mcL (3.82-4.97); Red Cell Distribution Width 14.2 % (11.5-14.5)
[2016-02-17 08:21] LABS: BUN/Creatinine Ratio 24 (6-26); Blood Urea Nitrogen 16 mg/dL (7-20); Calcium 8.8 mg/dL (8.6-10.8); Carbon Dioxide 29 mEq/L (19-29); Chloride 101 mEq/L (98-109); Glucose 128 mg/dL (70-99); Osmolality,Calculated 283 (280-300); Potassium 5.1 mEq/L (3.5-4.5); Sodium 135 mEq/L (136-145); eGFR For African Americans > 60 (> 60); eGFR For Non-African Americans > 60 (> 60)
[2016-02-17 08:36] LABS: Dohle Bodies Present (Not Present); Platelet Estimate Normal (Normal)
[2016-02-17 08:37] LABS: Poikilocytosis 1+ (Not Present)
[2016-02-17] MEDS ORDERED: predniSONE 20 MG TABLET PO SCH (09:00)
[2016-02-17] MEDS ORDERED: Furosemide 20 MG/2 ML VIAL IVP ONE (09:19)
[2016-02-17] MEDS: levoFLOXacin 750 MG TABLET PO SCH (09:26)
[2016-02-17] MEDS: Cholecalciferol (D-3) 1,000 UNIT TABLET PO SCH (09:26)
[2016-02-17] MEDS: amLODIPine 5 MG TABLET PO SCH (09:28)
[2016-02-17] MEDS: Budesonide/Formoterol 160/4.5 MDI IH SCH ×2 (09:52→21:03)
--- NOTE | 2016-02-17 16:27 | Internal Med Progress Note ---
Date of Encounter: 02/17/16 Time of Encounter: 11:45 - Assessment and plan (1) Acute respiratory failure with hypoxia Current Visit: Yes Status: Acute Assessment and plan: Improving. Continue O2 supplementation. (2) Acute chest wall pain Current Visit: Yes Status: Resolved Assessment and plan: We will prescribe Lidoderm patch. Mostly from costochondritis. (3) COPD (chronic obstructive pulmonary disease) Current Visit: Yes Status: Chronic Assessment and plan: Continue to taper steroids. On levofloxacin and nebulizer treatments. Qualifiers: COPD type: COPD with acute exacerbation Qualified Code(s): J44.1 - Chronic obstructive pulmonary disease with (acute) exacerbation (4) Hypertension Current Visit: Yes Status: Chronic Assessment and plan: Well-controlled Qualifiers: Hypertension type: essential hypertension Qualified Code(s): I10 - Essential (primary) hypertension (5) Pulmonary embolism Current Visit: Yes Status: Chronic Assessment and plan: Continue Xarelto Qualifiers: Pulmonary embolism type: other Chronicity: acute Acute cor pulmonale presence: without acute cor pulmonale Qualified Code(s): I26.99 - Other pulmonary embolism without acute cor pulmonale (6) Community acquired pneumonia Current Visit: Yes Status: Suspected Assessment and plan: On levofloxacin. WBC count again elevated today. Likely due to prednisone use. We will repeat chest x-ray in the morning. - Subjective Interval history: Patient says she feels worse today. Complains of abdominal discomfort and epigastric pain. Her shortness of breath has been improving. She also complains of some chest wall pain. She is requesting Lidoderm patch for this. - Constitutional Vitals: Temp Pulse Resp BP Pulse Ox 98.4 F 91 30 99/60 94 L 02/17/16 14:36 02/17/16 14:36 02/17/16 16:04 02/17/16 14:36 02/17/16 16:04 General appearance: Present: cooperative, mild distress, A&O X 3, pleasant, answers questions appropriately - Respiratory Respiratory exam: Present: decreased breath sounds (Diminished bilaterally), wheezes. Absent: accessory muscle use, rales, rhonchi - Cardiovascular Cardiovascular exam: Present: RRR, +S1, +S2. Absent: diastolic murmur, gallop, rubs, systolic murmur - Extremities Exam Extremities exam: Present: pedal edema, warm, radial pulses palpable and symetrical. Absent: calf tenderness, cyanotic - Neurological Exam Neurological exam: Present: CN II-XII intact, oriented X3, no focal deficits. Absent: facial droop, speech deficit Internal Medicine: Result - Labs CBC & Chem 7: 02/17/16 08:01 02/17/16 08:01 Labs: Short CBC 02/17/16 Range/Units 08:01 WBC 26.3 H (4.3-11.1) K/mcL Hgb 11.7 (11.5-15.4) g/dL Hct 35.3 (35.3-44.9) % Plt Count 327 (140-400) K/mcL Neutrophils # 22.9 H (1.6-8.9) K/mcL BMP 02/17/16 08:01 Sodium 135 L Potassium 5.1 H Chloride 101 Carbon Dioxide 29 BUN 16 Creatinine 0.67 Glucose 128 H Calcium 8.8 - ABG Interpretation ABG results: PT/INR, D-dimer PT 19.0 Seconds (9.4-12.1) H 02/14/16 21:05 Consult Discharge Plan - Plan Referrals: Dane Thomas MD [Primary Care Provider] - - Attending Attestation This document has been at least partially created by [employer] voice recognition technology by Dr. Gee. Errors in grammar, wording or other phrases may exist. If errors are found after the documentation is signed, they will be addressed individually in the addendum section of this document when appropriate. Medical Decision Making - MDM Narrative Medical decision making narrative: Moderate risk for complications - Lab Data Lab results reviewed: Yes I reviewed the patient's lab results. Result diagrams: 02/17/16 08:01 02/17/16 08:01 Lab Results 02/15/16 02/16/16 02/16/16 Range/Units 09:27 08:21 08:21 WBC 21.6 H (4.3-11.1) K/mcL RBC 4.01 (3.82-4.97) M/mcL Hgb 12.0 (11.5-15.4) g/dL Hct 35.0 L (35.3-44.9) % MCV 87.3 (83.0-100.0) fL MCH 29.9 (28.0-33.3) pg MCHC 34.3 (31.6-35.5) g/dL RDW 13.7 (11.5-14.5) % Plt Count 308 (140-400) K/mcL MPV 9.5 (9.4-12.4) fL Immature Gran % 0.7 (0-4) % Seg Neutrophils % 89.8 % Lymphocytes % 5.0 % Monocytes % 4.4 % Eosinophils % 0.0 % Basophils % 0.1 % Neutrophils # 19.4 H (1.6-8.9) K/mcL Lymphocytes # 1.1 (0.6-4.6) K/mcL Monocytes # 1.0 (0.0-1.3) K/mcL Eosinophils # 0.0 (0.0-0.6) K/mcL Basophils # 0.0 (0.0-0.2) K/mcL Dohle Bodies (Not Present) Platelet Estimate (Normal) Poikilocytosis (Not Present) Sodium 131 L (136-145) mEq/L Potassium 4.4 D (3.5-4.5) mEq/L Chloride 99 (98-109) mEq/L Carbon Dioxide 25 (19-29) mEq/L BUN 16 (7-20) mg/dL Creatinine 0.71 (0.57-1.11) mg/dL Est GFR ( Amer) > 60 (> 60) Est GFR (Non-Af Amer) > 60 (> 60) BUN/Creatinine Ratio 23 (6-26) Glucose 227 H (70-99) mg/dL Calculated Osmolality 280 (280-300) Calcium 8.6 (8.6-10.8) mg/dL Troponin I 0.08 H* (0-0.03) ng/mL 02/17/16 02/17/16 Range/Units 08:01 08:01 WBC 26.3 H (4.3-11.1) K/mcL RBC 3.95 (3.82-4.97) M/mcL Hgb 11.7 (11.5-15.4) g/dL Hct 35.3 (35.3-44.9) % MCV 89.4 (83.0-100.0) fL MCH 29.6 (28.0-33.3) pg MCHC 33.1 (31.6-35.5) g/dL RDW 14.2 (11.5-14.5) % Plt Count 327 (140-400) K/mcL MPV 9.5 (9.4-12.4) fL Immature Gran % 1.4 (0-4) % Seg Neutrophils % 87.0 % Lymphocytes % 4.8 % Monocytes % 6.7 % Eosinophils % 0.0 % Basophils % 0.1 % Neutrophils # 22.9 H (1.6-8.9) K/mcL Lymphocytes # 1.3 (0.6-4.6) K/mcL Monocytes # 1.8 H (0.0-1.3) K/mcL Eosinophils # 0.0 (0.0-0.6) K/mcL Basophils # 0.0 (0.0-0.2) K/mcL Dohle Bodies Present A (Not Present) Platelet Estimate Normal (Normal) Poikilocytosis 1+ A (Not Present) Sodium 135 L (136-145) mEq/L Potassium 5.1 H (3.5-4.5) mEq/L Chloride 101 (98-109) mEq/L Carbon Dioxide 29 (19-29) mEq/L BUN 16 (7-20) mg/dL Creatinine 0.67 (0.57-1.11) mg/dL Est GFR ( Amer) > 60 (> 60) Est GFR (Non-Af Amer) > 60 (> 60) BUN/Creatinine Ratio 24 (6-26) Glucose 128 H (70-99) mg/dL Calculated Osmolality 283 (280-300) Calcium 8.8 (8.6-10.8) mg/dL Troponin I (0-0.03) ng/mL
[2016-02-17] MEDS ORDERED: Benzocaine 20% 9 GM GEL..GRAM. TP PRN (16:56)
[2016-02-17] MEDS: *HR* Rivaroxaban 10 MG TABLET PO SCH (21:19)
[2016-02-18] MEDS: *HR* HYDROcodone/Acet 5/325 mg TABLET PO PRN ×2 (03:25→10:15)
[2016-02-18] MEDS: Ipratropium/Albuterol Neb 3 ML IH SCH ×4 (03:53→22:13)
[2016-02-18 05:19] LABS: Basophils % 0.2 %; Hemoglobin 12.6 g/dL (11.5-15.4); Mean Platelet Volume 9.3 fL (9.4-12.4); Red Cell Distribution Width 14.4 % (11.5-14.5)
[2016-02-18 05:21] LABS: Hematocrit 38.5 % (35.3-44.9); Immature Granulocytes % 2.3 % (0-4); Lymphocytes % 7.7 %; Mean Corpuscular HGB Conc 32.7 g/dL (31.6-35.5); Mean Corpuscular Hemoglobin 29.5 pg (28.0-33.3); Mean Corpuscular Volume 90.2 fL (83.0-100.0); Monocytes % 7.9 %; Platelet Count 363 K/mcL (140-400); Red Blood Count 4.27 M/mcL (3.82-4.97); Segmented Neutrophils % 81.9 %
[2016-02-18 05:42] LABS: BUN/Creatinine Ratio 25 (6-26); Blood Urea Nitrogen 17 mg/dL (7-20); Carbon Dioxide 29 mEq/L (19-29); Chloride 98 mEq/L (98-109); Glucose 126 mg/dL (70-99); Osmolality,Calculated 283 (280-300); Potassium 4.7 mEq/L (3.5-4.5); Sodium 135 mEq/L (136-145); eGFR For African Americans > 60 (> 60); eGFR For Non-African Americans > 60 (> 60)
[2016-02-18 06:00] LABS: Basophils # 0.1 K/mcL (0.0-0.2); Neutrophils # 21.1 K/mcL (1.6-8.9)
[2016-02-18 07:51] LABS: Large Platelets Present (Not Present); Platelet Estimate Normal (Normal)
[2016-02-18] MEDS: Furosemide 20 MG TABLET PO SCH (10:07)
[2016-02-18] MEDS: levoFLOXacin 750 MG TABLET PO SCH (10:07)
[2016-02-18] MEDS: amLODIPine 5 MG TABLET PO SCH (10:08)
[2016-02-18] MEDS: predniSONE 20 MG TABLET PO SCH (10:08)
[2016-02-18] MEDS: Cholecalciferol (D-3) 1,000 UNIT TABLET PO SCH (10:08)
[2016-02-18] MEDS: Lisinopril 20 MG TABLET PO SCH (10:09)
[2016-02-18] MEDS: Budesonide/Formoterol 160/4.5 MDI IH SCH ×2 (11:39→22:13)
[2016-02-18] MEDS: *HR* OxyCODONE Immed Rel 5 MG TABLET PO PRN ×2 (13:58→21:51)
--- NOTE | 2016-02-18 17:36 | Internal Med Progress Note ---
Date of Encounter: 02/18/16 Time of Encounter: 10:45 - Assessment and plan (1) Acute respiratory failure with hypoxia Current Visit: Yes Status: Acute Assessment and plan: Continue O2 supplementation. 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 Continues to use accessory muscles which is a chronic symptom for the patient. (2) Acute chest wall pain Current Visit: Yes Status: Resolved Assessment and plan: Supportive care. Will change pain medication to oxycodone to see if this will relieve her pain better. 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 Patient having continuous use of accessory muscles. Recommend hospice. Patient was previously on hospice. 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 Qualifiers: COPD type: COPD with acute exacerbation Qualified Code(s): J44.1 - Chronic obstructive pulmonary disease with (acute) exacerbation (4) Hypertension Current Visit: Yes Status: Chronic Assessment and plan: Controlled. Qualifiers: Hypertension type: essential hypertension Qualified Code(s): I10 - Essential (primary) hypertension (5) Pulmonary embolism Current Visit: Yes Status: Chronic Assessment and plan: On Xarelto Qualifiers: Pulmonary embolism type: other Chronicity: acute Acute cor pulmonale presence: without acute cor pulmonale Qualified Code(s): I26.99 - Other pulmonary embolism without acute cor pulmonale (6) Community acquired pneumonia Current Visit: Yes Status: Ruled-out Assessment and plan: X-ray done today does not show any pneumonia. Patient likely had atelectasis that has now improved. Leukocytosis likely due to use of steroids. Improved today. - Subjective Interval history: Complaints of chest pain. Was also having constipation earlier today but has been relieved with an enema. Continues to have shortness of breath. But able to complete sentences. - Constitutional Vitals: Temp Pulse Resp BP Pulse Ox 98.2 F 100 25 96/60 98 02/18/16 15:20 02/18/16 15:20 02/18/16 16:03 02/18/16 15:20 02/18/16 16:03 General appearance: Present: cooperative, mild distress, A&O X 3, pleasant, answers questions appropriately - Respiratory Respiratory exam: Present: accessory muscle use, decreased breath sounds, prolonged expiratory phase, wheezes. Absent: rales, rhonchi - Cardiovascular Cardiovascular exam: Present: RRR, +S1, +S2. Absent: diastolic murmur, gallop, rubs, systolic murmur - GI/Abdominal GI/Abdominal exam: Present: normal bowel sounds, soft, no peritoneal signs. Absent: distended, tenderness - Extremities Exam Extremities exam: Present: warm, radial pulses palpable and symetrical. Absent : calf tenderness, cyanotic, pedal edema - Neurological Exam Neurological exam: Present: CN II-XII intact, oriented X3, no focal deficits. Absent: facial droop, speech deficit - Skin Skin exam: Present: dry, intact Internal Medicine: Result - Labs CBC & Chem 7: 02/18/16 04:36 02/18/16 04:36 Labs: Short CBC 02/18/16 Range/Units 04:36 WBC 25.7 H (4.3-11.1) K/mcL Hgb 12.6 (11.5-15.4) g/dL Hct 38.5 (35.3-44.9) % Plt Count 363 (140-400) K/mcL Neutrophils # 21.1 H (1.6-8.9) K/mcL BMP 02/18/16 04:36 Sodium 135 L Potassium 4.7 H Chloride 98 Carbon Dioxide 29 BUN 17 Creatinine 0.68 Glucose 126 H Calcium 9.0 - ABG Interpretation ABG results: PT/INR, D-dimer PT 19.0 Seconds (9.4-12.1) H 02/14/16 21:05 - Impressions Impressions Chest X-Ray 02/18/16 00:01 IMPRESSION: No evidence of acute disease. Aeration in the right lung base is improved from 02/14/2016. D/ / Semaj Weiner MD / Semaj Weiner MD Interpreting Provider: Semaj Weiner MD Consult Discharge Plan - Plan Referrals: Dane Thomas MD [Primary Care Provider] - - Attending Attestation This document has been at least partially created by [employer] recognition technology by Dr. Gee. Errors in grammar, wording or other phrases may exist. If errors are found after the documentation is signed, they will be addressed individually in the addendum section of this document when appropriate.
[2016-02-18] MEDS: *HR* Rivaroxaban 10 MG TABLET PO SCH (21:52)
[2016-02-19] MEDS: Ipratropium/Albuterol Neb 3 ML IH SCH ×4 (03:54→22:06)
[2016-02-19] MEDS: *HR* OxyCODONE Immed Rel 5 MG TABLET PO PRN ×2 (04:10→19:59)
[2016-02-19 05:26] LABS: Basophils % 0.2 %; Eosinophils % 0.1 %; Lymphocytes % 8.7 %
[2016-02-19 05:28] LABS: Basophils # 0.1 K/mcL (0.0-0.2); Hematocrit 39.7 % (35.3-44.9); Hemoglobin 13.5 g/dL (11.5-15.4); Lymphocytes # 2.2 K/mcL (0.6-4.6); Mean Corpuscular Hemoglobin 30.5 pg (28.0-33.3); Mean Corpuscular Volume 89.8 fL (83.0-100.0); Monocytes # 1.4 K/mcL (0.0-1.3); Monocytes % 5.7 %; Neutrophils # 21.1 K/mcL (1.6-8.9); Platelet Count 268 K/mcL (140-400); Red Blood Count 4.42 M/mcL (3.82-4.97); Red Cell Distribution Width 14.3 % (11.5-14.5); Segmented Neutrophils % 84.3 %
[2016-02-19 05:38] LABS: BUN/Creatinine Ratio 28 (6-26); Blood Urea Nitrogen 20 mg/dL (7-20); Carbon Dioxide 32 mEq/L (19-29); Chloride 97 mEq/L (98-109); Glucose 103 mg/dL (70-99); Osmolality,Calculated 279 (280-300); Potassium 4.6 mEq/L (3.5-4.5); Sodium 133 mEq/L (136-145); eGFR For African Americans > 60 (> 60); eGFR For Non-African Americans > 60 (> 60)
[2016-02-19 05:55] LABS: Platelet Estimate Normal (Normal)
[2016-02-19] MEDS: Lisinopril 20 MG TABLET PO SCH (09:37)
[2016-02-19] MEDS: amLODIPine 5 MG TABLET PO SCH (09:37)
[2016-02-19] MEDS: Furosemide 20 MG TABLET PO SCH (09:38)
[2016-02-19] MEDS: predniSONE 20 MG TABLET PO SCH (09:38)
[2016-02-19] MEDS: levoFLOXacin 500 MG TABLET PO SCH (09:38)
[2016-02-19] MEDS: Cholecalciferol (D-3) 1,000 UNIT TABLET PO SCH (09:39)
[2016-02-19] MEDS: Budesonide/Formoterol 160/4.5 MDI IH SCH ×2 (10:22→22:06)
--- NOTE | 2016-02-19 13:35 | Internal Med Progress Note ---
Date of Encounter: 02/19/16 Time of Encounter: 09:00 - Assessment and plan (1) Acute respiratory failure with hypoxia Current Visit: Yes Status: Acute Assessment and plan: Continue O2 supplementation. Wean BiPAP as tolerated. Continue bronchodilator nebulizer treatments. (2) Acute chest wall pain Current Visit: Yes Status: Resolved Assessment and plan: Supportive care. Pain control. Also treating with topical Lidoderm patches. (3) COPD (chronic obstructive pulmonary disease) Current Visit: Yes Status: Chronic Assessment and plan: Continue bronchodilators, Levaquin, steroid taper. Qualifiers: COPD type: COPD with acute exacerbation Qualified Code(s): J44.1 - Chronic obstructive pulmonary disease with (acute) exacerbation (4) Hypertension Current Visit: Yes Status: Chronic Assessment and plan: Controlled Qualifiers: Hypertension type: essential hypertension Qualified Code(s): I10 - Essential (primary) hypertension (5) Pulmonary embolism Current Visit: Yes Status: Chronic Assessment and plan: On rivaroxaban Qualifiers: Pulmonary embolism type: other Chronicity: acute Acute cor pulmonale presence: without acute cor pulmonale Qualified Code(s): I26.99 - Other pulmonary embolism without acute cor pulmonale (6) Community acquired pneumonia Current Visit: Yes Status: Ruled-out - Subjective Interval history: Shortness of breath. Currently wearing BiPAP. Feels her mouth is dry. Has chest wall pain. - Constitutional Vitals: Temp Pulse Resp BP Pulse Ox 97.7 F 108 24 90/56 97 02/19/16 11:34 02/19/16 11:34 02/19/16 11:34 02/19/16 11:34 02/19/16 11:34 General appearance: Present: cooperative, mild distress, A&O X 3, pleasant, answers questions appropriately - Neck Neck exam general surgery: Present: supple, trachea midline. Absent: lymphadenopathy - Respiratory Respiratory exam: Present: accessory muscle use, decreased breath sounds ( Diminished bilaterally), prolonged expiratory phase, wheezes. Absent: rales, rhonchi - Cardiovascular Cardiovascular exam: Present: RRR, +S1, +S2. Absent: diastolic murmur, gallop, rubs, systolic murmur - Extremities Exam Extremities exam: Present: warm, radial pulses palpable and symetrical. Absent : calf tenderness, cyanotic, pedal edema Internal Medicine: Result - Labs CBC & Chem 7: 02/19/16 05:17 02/19/16 05:17 Labs: Short CBC 02/19/16 Range/Units 05:17 WBC 25.0 H (4.3-11.1) K/mcL Hgb 13.5 (11.5-15.4) g/dL Hct 39.7 (35.3-44.9) % Plt Count 268 (140-400) K/mcL Neutrophils # 21.1 H (1.6-8.9) K/mcL BMP 02/19/16 05:17 Sodium 133 L Potassium 4.6 H Chloride 97 L Carbon Dioxide 32 H BUN 20 Creatinine 0.72 Glucose 103 H Calcium 9.0 - ABG Interpretation ABG results: PT/INR, D-dimer PT 19.0 Seconds (9.4-12.1) H 02/14/16 21:05 Consult Discharge Plan - Plan Referrals: Dane Thomas MD [Primary Care Provider] - - Attending Attestation This document has been at least partially created by [employer] recognition technology by Dr. Gee. Errors in grammar, wording or other phrases may exist. If errors are found after the documentation is signed, they will be addressed individually in the addendum section of this document when appropriate. Medical Decision Making - MDM Narrative Medical decision making narrative: Moderate risk for complications. Awaiting set up a safe discharge plan for the patient. 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 Continue physical therapy while patient is in the hospital. - Lab Data Lab results reviewed: Yes I reviewed the patient's lab results. Result diagrams: 02/19/16 05:17 02/19/16 05:17 Lab Results 02/15/16 02/16/16 02/16/16 Range/Units 09:27 08:21 08:21 WBC 21.6 H (4.3-11.1) K/mcL RBC 4.01 (3.82-4.97) M/mcL Hgb 12.0 (11.5-15.4) g/dL Hct 35.0 L (35.3-44.9) % MCV 87.3 (83.0-100.0) fL MCH 29.9 (28.0-33.3) pg MCHC 34.3 (31.6-35.5) g/dL RDW 13.7 (11.5-14.5) % Plt Count 308 (140-400) K/mcL MPV 9.5 (9.4-12.4) fL Immature Gran % 0.7 (0-4) % Seg Neutrophils % 89.8 % Lymphocytes % 5.0 % Monocytes % 4.4 % Eosinophils % 0.0 % Basophils % 0.1 % Neutrophils # 19.4 H (1.6-8.9) K/mcL Lymphocytes # 1.1 (0.6-4.6) K/mcL Monocytes # 1.0 (0.0-1.3) K/mcL Eosinophils # 0.0 (0.0-0.6) K/mcL Basophils # 0.0 (0.0-0.2) K/mcL Dohle Bodies (Not Present) Platelet Estimate (Normal) Large Platelets (Not Present) Poikilocytosis (Not Present) Sodium 131 L (136-145) mEq/L Potassium 4.4 D (3.5-4.5) mEq/L Chloride 99 (98-109) mEq/L Carbon Dioxide 25 (19-29) mEq/L BUN 16 (7-20) mg/dL Creatinine 0.71 (0.57-1.11) mg/dL Est GFR ( Amer) > 60 (> 60) Est GFR (Non-Af Amer) > 60 (> 60) BUN/Creatinine Ratio 23 (6-26) Glucose 227 H (70-99) mg/dL Calculated Osmolality 280 (280-300) Calcium 8.6 (8.6-10.8) mg/dL Troponin I 0.08 H* (0-0.03) ng/mL 02/17/16 02/17/16 02/18/16 Range/Units 08:01 08:01 04:36 WBC 26.3 H 25.7 H (4.3-11.1) K/mcL RBC 3.95 4.27 (3.82-4.97) M/mcL Hgb 11.7 12.6 (11.5-15.4) g/dL Hct 35.3 38.5 (35.3-44.9) % MCV 89.4 90.2 (83.0-100.0) fL MCH 29.6 29.5 (28.0-33.3) pg MCHC 33.1 32.7 (31.6-35.5) g/dL RDW 14.2 14.4 (11.5-14.5) % Plt Count 327 363 (140-400) K/mcL MPV 9.5 9.3 L (9.4-12.4) fL Immature Gran % 1.4 2.3 (0-4) % Seg Neutrophils % 87.0 81.9 % Lymphocytes % 4.8 7.7 % Monocytes % 6.7 7.9 % Eosinophils % 0.0 0.0 % Basophils % 0.1 0.2 % Neutrophils # 22.9 H 21.1 H (1.6-8.9) K/mcL Lymphocytes # 1.3 2.0 (0.6-4.6) K/mcL Monocytes # 1.8 H 2.0 H (0.0-1.3) K/mcL Eosinophils # 0.0 0.0 (0.0-0.6) K/mcL Basophils # 0.0 0.1 (0.0-0.2) K/mcL Dohle Bodies Present A (Not Present) Platelet Estimate Normal Normal (Normal) Large Platelets Present A (Not Present) Poikilocytosis 1+ A (Not Present) Sodium 135 L (136-145) mEq/L Potassium 5.1 H (3.5-4.5) mEq/L Chloride 101 (98-109) mEq/L Carbon Dioxide 29 (19-29) mEq/L BUN 16 (7-20) mg/dL Creatinine 0.67 (0.57-1.11) mg/dL Est GFR ( Amer) > 60 (> 60) Est GFR (Non-Af Amer) > 60 (> 60) BUN/Creatinine Ratio 24 (6-26) Glucose 128 H (70-99) mg/dL Calculated Osmolality 283 (280-300) Calcium 8.8 (8.6-10.8) mg/dL Troponin I (0-0.03) ng/mL 02/18/16 02/19/16 02/19/16 Range/Units 04:36 05:17 05:17 WBC 25.0 H (4.3-11.1) K/mcL RBC 4.42 (3.82-4.97) M/mcL Hgb 13.5 (11.5-15.4) g/dL Hct 39.7 (35.3-44.9) % MCV 89.8 (83.0-100.0) fL MCH 30.5 (28.0-33.3) pg MCHC 34.0 (31.6-35.5) g/dL RDW 14.3 (11.5-14.5) % Plt Count 268 (140-400) K/mcL MPV 9.0 L (9.4-12.4) fL Immature Gran % 1.0 (0-4) % Seg Neutrophils % 84.3 % Lymphocytes % 8.7 % Monocytes % 5.7 % Eosinophils % 0.1 % Basophils % 0.2 % Neutrophils # 21.1 H (1.6-8.9) K/mcL Lymphocytes # 2.2 (0.6-4.6) K/mcL Monocytes # 1.4 H (0.0-1.3) K/mcL Eosinophils # 0.0 (0.0-0.6) K/mcL Basophils # 0.1 (0.0-0.2) K/mcL Dohle Bodies (Not Present) Platelet Estimate Normal (Normal) Large Platelets (Not Present) Poikilocytosis (Not Present) Sodium 135 L 133 L (136-145) mEq/L Potassium 4.7 H 4.6 H (3.5-4.5) mEq/L Chloride 98 97 L (98-109) mEq/L Carbon Dioxide 29 32 H (19-29) mEq/L BUN 17 20 (7-20) mg/dL Creatinine 0.68 0.72 (0.57-1.11) mg/dL Est GFR ( Amer) > 60 > 60 (> 60) Est GFR (Non-Af Amer) > 60 > 60 (> 60) BUN/Creatinine Ratio 25 28 H (6-26) Glucose 126 H 103 H (70-99) mg/dL Calculated Osmolality 283 279 L (280-300) Calcium 9.0 9.0 (8.6-10.8) mg/dL Troponin I (0-0.03) ng/mL
[2016-02-19] MEDS ORDERED: predniSONE 20 MG TABLET PO SCH (14:39)
[2016-02-19] MEDS ORDERED: *HR* LORazepam 2 MG/ML VIAL IVP ONE (17:03)
[2016-02-19] MEDS: *HR* Rivaroxaban 10 MG TABLET PO SCH (19:59)
[2016-02-20] MEDS: Ipratropium/Albuterol Neb 3 ML IH SCH ×4 (04:30→22:56)
[2016-02-20] MEDS: *HR* OxyCODONE Immed Rel 5 MG TABLET PO PRN (06:51)
[2016-02-20] MEDS: Lisinopril 20 MG TABLET PO SCH (08:01)
[2016-02-20] MEDS: levoFLOXacin 500 MG TABLET PO SCH (08:31)
[2016-02-20 08:32] LABS: Red Cell Distribution Width 14.1 % (11.5-14.5)
[2016-02-20] MEDS: Cholecalciferol (D-3) 1,000 UNIT TABLET PO SCH (08:32)
[2016-02-20] MEDS: amLODIPine 5 MG TABLET PO SCH (08:32)
[2016-02-20] MEDS: Furosemide 20 MG TABLET PO SCH (08:32)
[2016-02-20 08:34] LABS: Hematocrit 37.3 % (35.3-44.9); Hemoglobin 12.5 g/dL (11.5-15.4); Immature Platelets 2.5 % (1.1-6.1); Mean Corpuscular HGB Conc 33.5 g/dL (31.6-35.5); Mean Corpuscular Hemoglobin 29.9 pg (28.0-33.3); Mean Corpuscular Volume 89.2 fL (83.0-100.0); Mean Platelet Volume 9.3 fL (9.4-12.4); Nucleated Red Blood Cells 0.1 /100 WBC (0); Platelet Count 295 K/mcL (140-400); Red Blood Count 4.18 M/mcL (3.82-4.97)
[2016-02-20 09:02] LABS: Lymphocytes # 2.9 K/mcL (0.6-4.6); Monocytes # 1.4 K/mcL (0.0-1.3); Neutrophils # 31.7 K/mcL (1.6-8.9); Platelet Estimate Normal (Normal); Smudge Cells Present (Not Present)
[2016-02-20 09:49] LABS: Bilirubin,Urine Negative (Negative); Blood,Urine Negative (Negative); Clarity,Urine Clear (Clear); Color,Urine Dark Yellow (Yellow); Glucose,Urine (UA) Normal (Normal); Ketones,Urine Negative (Negative); Leukocyte Esterase,Urine Small (Negative); Nitrite,Urine Negative (Negative); Protein,Urine Negative (Neg-Trace); Specific Gravity,Urine 1.025 (1.010-1.025); Urobilinogen,Urine Normal (Normal)
[2016-02-20 09:52] LABS: Bacteria,Urine None Seen per hpf (None-Few); Hyaline Casts,Urine None Seen per lpf (None-Few); Squamous Epithelial Cell,Urine Many per lpf (None-Few); WBC,Urine 0-3 per hpf (0-3)
[2016-02-20] MEDS ORDERED: Aminoglycoside Consult 1 EACH MC ONE (10:50)
[2016-02-20] MEDS: Budesonide/Formoterol 160/4.5 MDI IH SCH ×2 (10:53→22:56)
[2016-02-20] MEDS ORDERED: 0.9 % Sodium Chloride 500 ML ONE (11:40)
[2016-02-20 12:42] LABS: ABG Base Excess 5.9 mEq/L (-2.0 to 3.0); ABG HCO3 29.7 mEQ/L (21-27); ABG Oxygen Saturation 93 % (95-98); ABG PCO2 39 mmHg (35-45); ABG PH 7.49 pH Units (7.32-7.45); ABG PO2 62 mmHg (85-104); ABG TCO2 30.9 mEq/L (20-26)
[2016-02-20 12:44] LABS: Blood Gas FiO2 40 %
--- NOTE | 2016-02-20 15:04 | Internal Med Progress Note ---
Date of Encounter: 02/20/16 Time of Encounter: 12:30 - Assessment and plan (1) Acute respiratory failure with hypoxia Current Visit: Yes Status: Acute Assessment and plan: Worsening today. Will transfer patient to stepdown unit. CT scan of the chest done and shows emphysematous changes and possible lung mass. This is chronic for the patient and was present on previous CT scans done 2 months back. Patient did not wish further evaluation of this mass. (2) COPD (chronic obstructive pulmonary disease) Current Visit: Yes Status: Chronic Assessment and plan: Worsening COPD. Continue nebulizer treatments. O2 supplementation. BiPAP use as needed. Qualifiers: COPD type: COPD with acute exacerbation Qualified Code(s): J44.1 - Chronic obstructive pulmonary disease with (acute) exacerbation (3) Hypertension Current Visit: Yes Status: Chronic Assessment and plan: Blood pressure today. Receiving intravenous fluids. Hold antihypertensives. Qualifiers: Hypertension type: essential hypertension Qualified Code(s): I10 - Essential (primary) hypertension (4) Pulmonary embolism Current Visit: Yes Status: Chronic Assessment and plan: Continue Xarelto Qualifiers: Pulmonary embolism type: other Chronicity: acute Acute cor pulmonale presence: without acute cor pulmonale Qualified Code(s): I26.99 - Other pulmonary embolism without acute cor pulmonale (5) Community acquired pneumonia Current Visit: Yes Status: Ruled-out (6) Colitis presumed infectious Current Visit: Yes Status: Acute Assessment and plan: CT scan of the abdomen and pelvis shows colitis. Patient having worsening leukocytosis. Will check stool for C. difficile. Start patient on Flagyl. - Subjective Interval history: Complaining of worsening shortness of breath today. Continues to have wheezing. Any chest pain. No fever or chills reported. No nausea or vomiting. - Constitutional Vitals: Temp Pulse Resp BP Pulse Ox 98.6 F 93 20 88/78 100 02/20/16 14:49 02/20/16 14:49 02/20/16 14:49 02/20/16 14:49 02/20/16 14:49 General appearance: Present: cooperative, mild distress, A&O X 3, pleasant, answers questions appropriately - Respiratory Respiratory exam: Present: accessory muscle use, decreased breath sounds ( Diminished bilaterally), prolonged expiratory phase, rhonchi, wheezes. Absent: rales - Cardiovascular Cardiovascular exam: Present: RRR, +S1, +S2, tachycardia. Absent: diastolic murmur, gallop, rubs, systolic murmur - GI/Abdominal GI/Abdominal exam: Present: normal bowel sounds, soft, no peritoneal signs. Absent: distended, tenderness - Extremities Exam Extremities exam: Present: warm, radial pulses palpable and symetrical. Absent : calf tenderness, cyanotic, pedal edema - Neurological Exam Neurological exam: Present: CN II-XII intact, oriented X3, no focal deficits. Absent: facial droop, speech deficit - Skin Skin exam: Present: dry, intact Internal Medicine: Result - Labs CBC & Chem 7: 02/20/16 08:17 02/19/16 05:17 Labs: Short CBC 02/20/16 Range/Units 08:17 WBC 36.0 H* (4.3-11.1) K/mcL Hgb 12.5 (11.5-15.4) g/dL Hct 37.3 (35.3-44.9) % Plt Count 295 (140-400) K/mcL Neutrophils # 31.7 H (1.6-8.9) K/mcL Urine 02/20/16 Range/Units 09:04 Urine Color Dark Yellow (Yellow) Urine Clarity Clear (Clear) Urine pH 6.0 (5.0-8.0) pH Units Ur Specific [place] 1.025 (1.010-1.025) Urine Protein Negative (Neg-Trace) mg/dL Urine Glucose (UA) Normal (Normal) mg/dL - ABG Interpretation ABG results: ABG ABG pH 7.49 pH Units (7.32-7.45) H 02/20/16 12:33 ABG pCO2 39 mmHg (35-45) 02/20/16 12:33 ABG pO2 62 mmHg (85-104) L 02/20/16 12:33 ABG O2 Saturation 93 % (95-98) L 02/20/16 12:33 PT/INR, D-dimer PT 19.0 Seconds (9.4-12.1) H 02/14/16 21:05 - Impressions Impressions Abdomen/Pelvis CT 02/20/16 09:47 IMPRESSION: Moderate mural thickening likely representing colitis greatest involving the cecum. Basilar lung disease greater on the right, described on separate chest CT. Moderate diverticulosis greater in the sigmoid colon. Bilateral femoral hernias greater on the right, essentially unchanged. No obstruction. Multiple old compression fractures. D/ / Jared Mayo MD / Jared Mayo MD Interpreting Provider: Jared Mayo MD Chest CT 02/20/16 09:47 IMPRESSION: 1. Right lower lobe masslike airspace consolidation with right hilar and subcarinal adenopathy. Similar finding was present on the CT of December 20, 2015. Differential includes rounded atelectasis and neoplasm. It is not known what workup patient has had for this finding. Tissue diagnosis may be required for further evaluation. Right hilar adenopathy and subcarinal adenopathy. If this is shown to be cancer, the adenopathy would be suspicious for metastasis. 2. Moderate to severe centrilobular emphysema. 3. Small bilateral pleural effusions. 4. Multiple lung nodules as listed above, stable since March 2013. Given long-term stability, these are unlikely to be of significance and may represent noncalcified granulomas. 5. New compression deformity of C7 and T11 since December 20, 2015. Subacute compression deformities of T12, L1, and L2. 6. Bony resorption of the left posterior eighth rib. Finding would be suspicious for bone metastasis, right lower lobe masslike consolidation is shown to be cancer. D/ / 02/20/2016 11:14:53 Mikel Rice MD / chauncey Interpreting Provider: Mikel Rice MD Consult Discharge Plan - Plan Referrals: Dane Thomas MD [Primary Care Provider] - - Attending Attestation This document has been at least partially created by [employer] recognition technology by Dr. Gee. Errors in grammar, wording or other phrases may exist. If errors are found after the documentation is signed, they will be addressed individually in the addendum section of this document when appropriate. Medical Decision Making - MDM Narrative Medical decision making narrative: High risk for complications - Medical Records Medical records reviewed: Yes I reviewed the patient's medical records. - Lab Data Lab results reviewed: Yes I reviewed the patient's lab results. Result diagrams: 02/20/16 08:17 02/19/16 05:17 Lab Results 02/15/16 02/16/16 02/16/16 Range/Units 09:27 08:21 08:21 WBC 21.6 H (4.3-11.1) K/mcL RBC 4.01 (3.82-4.97) M/mcL Hgb 12.0 (11.5-15.4) g/dL Hct 35.0 L (35.3-44.9) % MCV 87.3 (83.0-100.0) fL MCH 29.9 (28.0-33.3) pg MCHC 34.3 (31.6-35.5) g/dL RDW 13.7 (11.5-14.5) % Plt Count 308 (140-400) K/mcL MPV 9.5 (9.4-12.4) fL Immature Gran % 0.7 (0-4) % Seg Neutrophils % 89.8 % Band Neutrophils % (0-4) % Lymphocytes % 5.0 % Monocytes % 4.4 % Eosinophils % 0.0 % Basophils % 0.1 % Neutrophils # 19.4 H (1.6-8.9) K/mcL Lymphocytes # 1.1 (0.6-4.6) K/mcL Monocytes # 1.0 (0.0-1.3) K/mcL Eosinophils # 0.0 (0.0-0.6) K/mcL Basophils # 0.0 (0.0-0.2) K/mcL Nucleated RBCs/100 WBC (0) /100 WBC Smudge Cells (Not Present) Dohle Bodies (Not Present) Platelet Estimate (Normal) Large Platelets (Not Present) Immature Plt Fraction (1.1-6.1) % Poikilocytosis (Not Present) ABG pH (7.32-7.45) pH Units ABG pCO2 (35-45) mmHg ABG pO2 (85-104) mmHg ABG HCO3 (21-27) mEQ/L ABG Total CO2 (20-26) mEq/L ABG O2 Saturation (95-98) % ABG Base Excess (-2.0 to 3.0) mEq/L Blood Gas Modality Inspired O2 % Sodium 131 L (136-145) mEq/L Potassium 4.4 D (3.5-4.5) mEq/L Chloride 99 (98-109) mEq/L Carbon Dioxide 25 (19-29) mEq/L BUN 16 (7-20) mg/dL Creatinine 0.71 (0.57-1.11) mg/dL Est GFR ( Amer) > 60 (> 60) Est GFR (Non-Af Amer) > 60 (> 60) BUN/Creatinine Ratio 23 (6-26) Glucose 227 H (70-99) mg/dL Calculated Osmolality 280 (280-300) Calcium 8.6 (8.6-10.8) mg/dL Troponin I 0.08 H* (0-0.03) ng/mL Urine Color (Yellow) Urine Clarity (Clear) Urine pH (5.0-8.0) pH Units Ur Specific [place] (1.010-1.025) Urine Protein (Neg-Trace) mg/dL Urine Glucose (UA) (Normal) mg/dL Urine Ketones (Negative) mg/dL Urine Blood (Negative) Urine Nitrite (Negative) Urine Bilirubin (Negative) Urine Urobilinogen (Normal) mg/dL Ur Leukocyte Esterase (Negative) Urine Microscopic RBC (0-3) per hpf Urine Microscopic WBC (0-3) per hpf Ur Squamous Epith Cells (None-Few) per lpf Urine Bacteria (None-Few) per hpf Hyaline Casts (None-Few) per lpf Ur Culture Indicated? (NO) 02/17/16 02/17/16 02/18/16 Range/Units 08:01 08:01 04:36 WBC 26.3 H 25.7 H (4.3-11.1) K/mcL RBC 3.95 4.27 (3.82-4.97) M/mcL Hgb 11.7 12.6 (11.5-15.4) g/dL Hct 35.3 38.5 (35.3-44.9) % MCV 89.4 90.2 (83.0-100.0) fL MCH 29.6 29.5 (28.0-33.3) pg MCHC 33.1 32.7 (31.6-35.5) g/dL RDW 14.2 14.4 (11.5-14.5) % Plt Count 327 363 (140-400) K/mcL MPV 9.5 9.3 L (9.4-12.4) fL Immature Gran % 1.4 2.3 (0-4) % Seg Neutrophils % 87.0 81.9 % Band Neutrophils % (0-4) % Lymphocytes % 4.8 7.7 % Monocytes % 6.7 7.9 % Eosinophils % 0.0 0.0 % Basophils % 0.1 0.2 % Neutrophils # 22.9 H 21.1 H (1.6-8.9) K/mcL Lymphocytes # 1.3 2.0 (0.6-4.6) K/mcL Monocytes # 1.8 H 2.0 H (0.0-1.3) K/mcL Eosinophils # 0.0 0.0 (0.0-0.6) K/mcL Basophils # 0.0 0.1 (0.0-0.2) K/mcL Nucleated RBCs/100 WBC (0) /100 WBC Smudge Cells (Not Present) Dohle Bodies Present A (Not Present) Platelet Estimate Normal Normal (Normal) Large Platelets Present A (Not Present) Immature Plt Fraction (1.1-6.1) % Poikilocytosis 1+ A (Not Present) ABG pH (7.32-7.45) pH Units ABG pCO2 (35-45) mmHg ABG pO2 (85-104) mmHg ABG HCO3 (21-27) mEQ/L ABG Total CO2 (20-26) mEq/L ABG O2 Saturation (95-98) % ABG Base Excess (-2.0 to 3.0) mEq/L Blood Gas Modality Inspired O2 % Sodium 135 L (136-145) mEq/L Potassium 5.1 H (3.5-4.5) mEq/L Chloride 101 (98-109) mEq/L Carbon Dioxide 29 (19-29) mEq/L BUN 16 (7-20) mg/dL Creatinine 0.67 (0.57-1.11) mg/dL Est GFR ( Amer) > 60 (> 60) Est GFR (Non-Af Amer) > 60 (> 60) BUN/Creatinine Ratio 24 (6-26) Glucose 128 H (70-99) mg/dL Calculated Osmolality 283 (280-300) Calcium 8.8 (8.6-10.8) mg/dL Troponin I (0-0.03) ng/mL Urine Color (Yellow) Urine Clarity (Clear) Urine pH (5.0-8.0) pH Units Ur Specific [place] (1.010-1.025) Urine Protein (Neg-Trace) mg/dL Urine Glucose (UA) (Normal) mg/dL Urine Ketones (Negative) mg/dL Urine Blood (Negative) Urine Nitrite (Negative) Urine Bilirubin (Negative) Urine Urobilinogen (Normal) mg/dL Ur Leukocyte Esterase (Negative) Urine Microscopic RBC (0-3) per hpf Urine Microscopic WBC (0-3) per hpf Ur Squamous Epith Cells (None-Few) per lpf Urine Bacteria (None-Few) per hpf Hyaline Casts (None-Few) per lpf Ur Culture Indicated? (NO) 02/18/16 02/19/16 02/19/16 Range/Units 04:36 05:17 05:17 WBC 25.0 H (4.3-11.1) K/mcL RBC 4.42 (3.82-4.97) M/mcL Hgb 13.5 (11.5-15.4) g/dL Hct 39.7 (35.3-44.9) % MCV 89.8 (83.0-100.0) fL MCH 30.5 (28.0-33.3) pg MCHC 34.0 (31.6-35.5) g/dL RDW 14.3 (11.5-14.5) % Plt Count 268 (140-400) K/mcL MPV 9.0 L (9.4-12.4) fL Immature Gran % 1.0 (0-4) % Seg Neutrophils % 84.3 % Band Neutrophils % (0-4) % Lymphocytes % 8.7 % Monocytes % 5.7 % Eosinophils % 0.1 % Basophils % 0.2 % Neutrophils # 21.1 H (1.6-8.9) K/mcL Lymphocytes # 2.2 (0.6-4.6) K/mcL Monocytes # 1.4 H (0.0-1.3) K/mcL Eosinophils # 0.0 (0.0-0.6) K/mcL Basophils # 0.1 (0.0-0.2) K/mcL Nucleated RBCs/100 WBC (0) /100 WBC Smudge Cells (Not Present) Dohle Bodies (Not Present) Platelet Estimate Normal (Normal) Large Platelets (Not Present) Immature Plt Fraction (1.1-6.1) % Poikilocytosis (Not Present) ABG pH (7.32-7.45) pH Units ABG pCO2 (35-45) mmHg ABG pO2 (85-104) mmHg ABG HCO3 (21-27) mEQ/L ABG Total CO2 (20-26) mEq/L ABG O2 Saturation (95-98) % ABG Base Excess (-2.0 to 3.0) mEq/L Blood Gas Modality Inspired O2 % Sodium 135 L 133 L (136-145) mEq/L Potassium 4.7 H 4.6 H (3.5-4.5) mEq/L Chloride 98 97 L (98-109) mEq/L Carbon Dioxide 29 32 H (19-29) mEq/L BUN 17 20 (7-20) mg/dL Creatinine 0.68 0.72 (0.57-1.11) mg/dL Est GFR ( Amer) > 60 > 60 (> 60) Est GFR (Non-Af Amer) > 60 > 60 (> 60) BUN/Creatinine Ratio 25 28 H (6-26) Glucose 126 H 103 H (70-99) mg/dL Calculated Osmolality 283 279 L (280-300) Calcium 9.0 9.0 (8.6-10.8) mg/dL Troponin I (0-0.03) ng/mL Urine Color (Yellow) Urine Clarity (Clear) Urine pH (5.0-8.0) pH Units Ur Specific [place] (1.010-1.025) Urine Protein (Neg-Trace) mg/dL Urine Glucose (UA) (Normal) mg/dL Urine Ketones (Negative) mg/dL Urine Blood (Negative) Urine Nitrite (Negative) Urine Bilirubin (Negative) Urine Urobilinogen (Normal) mg/dL Ur Leukocyte Esterase (Negative) Urine Microscopic RBC (0-3) per hpf Urine Microscopic WBC (0-3) per hpf Ur Squamous Epith Cells (None-Few) per lpf Urine Bacteria (None-Few) per hpf Hyaline Casts (None-Few) per lpf Ur Culture Indicated? (NO) 02/20/16 02/20/16 02/20/16 Range/Units 08:17 09:04 12:33 WBC 36.0 H* (4.3-11.1) K/mcL RBC 4.18 (3.82-4.97) M/mcL Hgb 12.5 (11.5-15.4) g/dL Hct 37.3 (35.3-44.9) % MCV 89.2 (83.0-100.0) fL MCH 29.9 (28.0-33.3) pg MCHC 33.5 (31.6-35.5) g/dL RDW 14.1 (11.5-14.5) % Plt Count 295 (140-400) K/mcL MPV 9.3 L (9.4-12.4) fL Immature Gran % (0-4) % Seg Neutrophils % 84.0 % Band Neutrophils % 4.0 (0-4) % Lymphocytes % 8.0 % Monocytes % 4.0 % Eosinophils % % Basophils % % Neutrophils # 31.7 H (1.6-8.9) K/mcL Lymphocytes # 2.9 (0.6-4.6) K/mcL Monocytes # 1.4 H (0.0-1.3) K/mcL Eosinophils # (0.0-0.6) K/mcL Basophils # (0.0-0.2) K/mcL Nucleated RBCs/100 WBC 0.1 H (0) /100 WBC Smudge Cells Present A (Not Present) Dohle Bodies (Not Present) Platelet Estimate Normal (Normal) Large Platelets (Not Present) Immature Plt Fraction 2.5 (1.1-6.1) % Poikilocytosis (Not Present) ABG pH 7.49 H (7.32-7.45) pH Units ABG pCO2 39 (35-45) mmHg ABG pO2 62 L (85-104) mmHg ABG HCO3 29.7 H (21-27) mEQ/L ABG Total CO2 30.9 H (20-26) mEq/L ABG O2 Saturation 93 L (95-98) % ABG Base Excess 5.9 H (-2.0 to 3.0) mEq/L Blood Gas Modality [place] Inspired O2 40 % Sodium (136-145) mEq/L Potassium (3.5-4.5) mEq/L Chloride (98-109) mEq/L Carbon Dioxide (19-29) mEq/L BUN (7-20) mg/dL Creatinine (0.57-1.11) mg/dL Est GFR ( Amer) (> 60) Est GFR (Non-Af Amer) (> 60) BUN/Creatinine Ratio (6-26) Glucose (70-99) mg/dL Calculated Osmolality (280-300) Calcium (8.6-10.8) mg/dL Troponin I (0-0.03) ng/mL Urine Color Dark Yellow (Yellow) Urine Clarity Clear (Clear) Urine pH 6.0 (5.0-8.0) pH Units Ur Specific [place] 1.025 (1.010-1.025) Urine Protein Negative (Neg-Trace) mg/dL Urine Glucose (UA) Normal (Normal) mg/dL Urine Ketones Negative (Negative) mg/dL Urine Blood Negative (Negative) Urine Nitrite Negative (Negative) Urine Bilirubin Negative (Negative) Urine Urobilinogen Normal (Normal) mg/dL Ur Leukocyte Esterase Small H (Negative) Urine Microscopic RBC 3-5 H (0-3) per hpf Urine Microscopic WBC 0-3 (0-3) per hpf Ur Squamous Epith Cells Many H (None-Few) per lpf Urine Bacteria None Seen (None-Few) per hpf Hyaline Casts None Seen (None-Few) per lpf Ur Culture Indicated? YES A (NO) - Radiology Data Radiology results reviewed: Yes I reviewed the patient's radiology results.
[2016-02-20] MEDS ORDERED: 0.9 % Sodium Chloride 1,000 ML IVC SCH (15:15)
[2016-02-20] MEDS ORDERED: MetroNIDAZOLE 500 MG/100 ML 500 MG/100 ML BAG IVPB SCH (16:00)
[2016-02-20 17:21] LABS: Hemoglobin 11.8 g/dL (11.5-15.4); Mean Corpuscular Volume 88.4 fL (83.0-100.0)
[2016-02-20 17:23] LABS: Hematocrit 34.2 % (35.3-44.9); Mean Corpuscular HGB Conc 34.5 g/dL (31.6-35.5); Mean Corpuscular Hemoglobin 30.5 pg (28.0-33.3); Mean Platelet Volume 9.3 fL (9.4-12.4); Platelet Count 245 K/mcL (140-400); Red Blood Count 3.87 M/mcL (3.82-4.97); Red Cell Distribution Width 14.2 % (11.5-14.5)
[2016-02-20 17:34] LABS: BUN/Creatinine Ratio 36 (6-26); Blood Urea Nitrogen 30 mg/dL (7-20); Carbon Dioxide 26 mEq/L (19-29); Chloride 96 mEq/L (98-109); Glucose 154 mg/dL (70-99); Magnesium 1.3 mg/dL (1.6-2.6); Osmolality,Calculated 279 (280-300); Potassium 4.1 mEq/L (3.5-4.5); Sodium 130 mEq/L (136-145); eGFR For African Americans > 60 (> 60); eGFR For Non-African Americans > 60 (> 60)
[2016-02-20 17:41] LABS: Lymphocytes # 1.5 K/mcL (0.6-4.6); Monocytes # 2.2 K/mcL (0.0-1.3); Neutrophils # 33.4 K/mcL (1.6-8.9); Platelet Estimate Normal (Normal)
[2016-02-20] MEDS ORDERED: methylPREDNISolone 125 MG/2 ML VIAL IVP SCH (18:00)
[2016-02-20] MEDS ORDERED: Vancomycin 750 MG in D5% in Water 250 ML IVPB ONE ×2 (19:07→19:13)
[2016-02-20] MEDS ORDERED: Ondansetron 4 MG/2 ML VIAL IVP PRN (19:13)
[2016-02-20] MEDS ORDERED: Benzocaine 20% 9 GM GEL..GRAM. TP PRN (19:13)
[2016-02-20] MEDS ORDERED: *HR* OxyCODONE Immed Rel 5 MG TABLET PO PRN (19:13)
[2016-02-20] MEDS ORDERED: Naloxone 0.4 MG/ML INJ IVP PRN (19:13)
[2016-02-20] MEDS ORDERED: Amiodarone Premix 360 MG/200 ML BAG IVC ONE (19:13)
--- NOTE | 2016-02-20 19:15 | Event Note ---
Date of Encounter: 02/20/16 Time of Encounter: 17:00 Patient having episodes of tachycardia ? sustained Vtach vs atrial fibrillation / flutter/atrial tachycardia. Patient has left bundle branch block. Complaining mainly of SOB but awake, alert and oriented. Consulted cardiology. Unable to start rate controlling meds due to low blood pressure. Also amiodarone contraindicated due to severe pulmonary disease. Discussed with cardiology. IV hydration. Correct electrolyte abnormalities. Sepsis bundle as leukocytosis persists. Transfer to ICU. Lactate normal. BP responding to fluid boluses. Stool for Cdiff has been ordered. CT shows colitis.
[2016-02-20] MEDS ORDERED: Magnesium Sulfate 2 GM in D5% in Water 100 ML IVPB ONE (19:16)
[2016-02-20] MEDS: Amiodarone Premix 360 MG/200 ML BAG IVC ONE (19:17)
[2016-02-20] MEDS ORDERED: *HR* Rivaroxaban 10 MG TABLET PO SCH (21:00)
[2016-02-20] MEDS: 0.9 % Sodium Chloride 1,000 ML IVC SCH (22:38)
[2016-02-21] MEDS: methylPREDNISolone 125 MG/2 ML VIAL IVP SCH ×2 (00:09→06:58)
[2016-02-21] MEDS: MetroNIDAZOLE 500 MG/100 ML 500 MG/100 ML BAG IVPB SCH ×3 (00:09→17:10)
[2016-02-21] MEDS: Amiodarone Premix 360 MG/200 ML BAG IVC ONE (00:16)
[2016-02-21] MEDS: Amiodarone Premix 360 MG/200 ML BAG IVC SCH (01:05)
[2016-02-21] MEDS: Ipratropium/Albuterol Neb 3 ML IH SCH ×4 (03:58→22:30)
[2016-02-21 05:34] LABS: Hematocrit 36.1 % (35.3-44.9); Hemoglobin 12.3 g/dL (11.5-15.4); Lymphocytes # 1.4 K/mcL (0.6-4.6); Mean Corpuscular HGB Conc 34.1 g/dL (31.6-35.5); Mean Corpuscular Hemoglobin 30.1 pg (28.0-33.3); Mean Corpuscular Volume 88.3 fL (83.0-100.0); Mean Platelet Volume 9.1 fL (9.4-12.4); Platelet Count 245 K/mcL (140-400); Red Blood Count 4.09 M/mcL (3.82-4.97); Red Cell Distribution Width 14.2 % (11.5-14.5)
[2016-02-21 05:47] LABS: BUN/Creatinine Ratio 36 (6-26); Blood Urea Nitrogen 27 mg/dL (7-20); Calcium 7.4 mg/dL (8.6-10.8); Carbon Dioxide 24 mEq/L (19-29); Chloride 101 mEq/L (98-109); Glucose 153 mg/dL (70-99); Osmolality,Calculated 280 (280-300); Potassium 3.8 mEq/L (3.5-4.5); Sodium 131 mEq/L (136-145); eGFR For African Americans > 60 (> 60); eGFR For Non-African Americans > 60 (> 60)
[2016-02-21 06:04] LABS: Monocytes # 2.1 K/mcL (0.0-1.3); Platelet Estimate Normal (Normal); Poikilocytosis 1+ (Not Present); Polychromasia 1+ (Not Present); Reactive Lymphocytes Present (Not Present)
--- NOTE | 2016-02-21 06:48 | Pulmonology Consult Note ---
<Anthony Pierre - Last Filed: 02/21/16 11:24> Date of Encounter: 02/21/16 Time of Encounter: 06:48 Assessment and Plan (1) Colitis presumed infectious Current Visit: Yes Status: Acute Patient has colonic dilatation with bowel wall thickening concerning for colitis on CT scan. Patient's white count is significantly elevated. Given recent antibiotic use there is a concern for C. difficile with developing toxic megacolon. Patient has not had a bowel movement since admission to the ICU. Will send stool for GI panel testing. Patient was initiated on IV Flagyl yesterday, we will add by mouth Vancomycin, vancomycin per rectum, IV ertapenem. Surgeries been consulted, patient does not appear to be a good surgical candidate. Will treat aggressively. (2) COPD (chronic obstructive pulmonary disease) Current Visit: Yes Status: Chronic Patient initially presented with shortness of breath and increased sputum production, she was treated for COPD exacerbation. It appears her COPD is under good control this time. We will discontinue steroids. We will change antibiotics around to focus more on intra-abdominal infections as well as C. difficile as discussed above. Continue bronchodilators. Qualifiers: COPD type: COPD with acute exacerbation Qualified Code(s): J44.1 - Chronic obstructive pulmonary disease with (acute) exacerbation (3) Hx of pulmonary embolus Current Visit: Yes Status: Chronic No evidence of active pulmonary embolism. Patient is on Xarelto, this is been held due to concerns of colitis with increased risk of GI bleed. We will continue to monitor. (4) Lung mass Current Visit: No Status: Acute Patient has an area in the right lower lobe seen on CT scan. Patient had similar area on previous CTs however it has grown in size. Differential includes rounded atelectasis, infection, malignancy. At this time patient is refusing bronchoscopy for further evaluation of this area. We will continue to monitor. Patient will likely need follow-up CT scans as an outpatient. (5) DVT prophylaxis Current Visit: No Status: Acute Heparin 5000 units subcutaneous twice a day. History of Present Illness Consult date: 02/21/16 Requesting physician: Adis Gee Chief complaint: Dyspnea History of present illness: Patient is an 80-year-old female with history of pulmonary fibrosis and chronic diarrhea who initially presented on February 14 with shortness of breath. Patient was initially being treated for pneumonia and COPD exacerbation. Yesterday the patient was not feeling right and it was noted that the patient was having nonsustained runs of ventricular tachycardia so she was transferred to . Last night at 1700 the patient had an episode of sustained ventricular tachycardia. She remained hemodynamically stable, she did not require cardioversion. She was started on amiodarone and was transferred to the ICU for closer monitoring. At this time the patient's main complaint is abdominal pain. CT scans reveal dilated colon and concerns for colitis. Patient did have a formed bowel movement yesterday. At this time she states she is breathing okay and she does complain of abdominal pain she denies any nausea, vomiting, diarrhea, fever, chills. Past Med Surg Social Fam HX - Past Medical History Medical history: arthritis, COPD, coronary artery disease, GERD, GI bleed, hyperlipidemia, hypertension, myocardial infarction, osteoporosis, pulmonary embolus, renal disease, SVT, other Psychiatric history: anxiety, depression - Past Surgical History Surgical History: cataract, other - Social History Smoking Status: Former smoker Smokeless Tobacco Status: No Alcohol use: none Drug use: none - Family History Mother Living Status: Hx Family Cardiac Disorders: (HTN) Hx Family Neurologic Disorders: Yes (alzheimers) Father Living Status: Hx Family Cancer: Yes (brain cancer) Son Adopted: No Living Status: Daughter Adopted: [place]: 62 Family Member Ethnicity: Non- Living Status: Still Living Hx Family Cardiac Disorders: Yes Hx Family Respiratory Disorders: Yes Hx Family Cancer: Yes (melanoma) Hx Family Genitourinary Disorders: No Hx Family Endocrine Disorder: No Hx Family Musculoskeletal Disorders: No Hx Family Neuromuscular Disorders: No Hx Family Neurologic Disorders: No Hx Family HEENT Disorders: No Hx Family Autoimmune Disorders: No Hx Family Reproductive Disorders: No Hx Family Psychosocial Disorders: No Medications and Allergies Amlodipine [Norvasc] 2.5 mg PO DAILY 01/21/15 [History] Ipratropium/Albuterol Neb [Duoneb] 3 ml IH Q6HR PRN 01/21/15 [History] Lisinopril [Zestril] 40 mg PO DAILY 01/21/15 [History] Pravastatin Sodium [Pravachol] 40 mg PO DAILY 01/21/15 [History] Theophylline Anhydrous [Theodur] 300 mg PO DAILY 01/21/15 [History] Isosorbide DInitrate [Isosorbide Dinitrate] 10 mg PO BID 07/06/15 [History] Oxybutynin Chloride [Ditropan Xl] 5 mg PO DAILY 07/28/15 [History] Oxygen 4 l NS CONT 07/28/15 [History] Budesonide/Formoterol 160/4.5 [Symbicort 160/4.5] 2 puff IH BID 11/12/15 [ History] Metoprolol [Lopressor] 25 mg PO BID 11/12/15 [History] Tiotropium [Spiriva] 18 mcg IH DAILY 11/12/15 [History] Cholecalciferol (Vitamin D3) [Vitamin D3] 3,000 unit PO DAILY 12/20/15 [History] Omeprazole [PriLOSEC] 40 mg PO DAILY 12/20/15 [History] Docusate [Colace] 100 mg PO BID #30 capsule 12/24/15 [Rx] Rivaroxaban [Xarelto] 20 mg PO HS 01/10/16 [History] Doxycycline 100 mg PO BID #6 capsule 01/14/16 [Rx] Furosemide [Lasix] 20 mg PO DAILY 02/14/16 [History] HYDROcodone/Acet 5/325 mg [[place] 5-325 mg] 1 tab PO Q6H PRN 02/14/16 [History] Allergies acetaminophen [From Tylenol] Allergy (Unknown, Verified 02/14/16 22:38) See Comments UNABLE TO CONFIRM REACTION- ALL ALLERGIES TAKEN FROM [facility] LAST APPT. Amoxicillin Allergy (Unknown, Verified 02/14/16 22:38) See Comments UNABLE TO CONFIRM REACTION- ALL ALLERGIES TAKEN FROM [facility] LAST APPT. clarithromycin Allergy (Unknown, Verified 02/14/16 22:38) See Comments UNABLE TO CONFIRM REACTION- ALL ALLERGIES TAKEN FROM [facility] LAST APPT. clavulanic acid Allergy (Unknown, Verified 02/14/16 22:38) See Comments UNABLE TO CONFIRM REACTION- ALL ALLERGIES TAKEN FROM [facility] LAST APPT. codeine Allergy (Unknown, Verified 02/14/16 22:38) See Comments UNABLE TO CONFIRM REACTION- ALL ALLERGIES TAKEN FROM [facility] LAST APPT. gabapentin Allergy (Unknown, Verified 02/14/16 22:38) See Comments UNABLE TO CONFIRM REACTION- ALL ALLERGIES TAKEN FROM [facility] LAST APPT. Iodinated Contrast Media - Oral and Allergy (Unknown, Verified 02/14/16 22:38) See Comments UNABLE TO CONFIRM REACTION- ALL ALLERGIES TAKEN FROM [facility] LAST APPT. Penicillins Allergy (Unknown, Verified 02/14/16 22:38) See Comments UNABLE TO CONFIRM REACTION- ALL ALLERGIES TAKEN FROM [facility] LAST APPT. Sulfa (Sulfonamide Antibiotics) Allergy (Unknown, Verified 02/14/16 22:38) See Comments UNABLE TO CONFIRM REACTION- ALL ALLERGIES TAKEN FROM [facility] LAST APPT. ROS unobtainable: due to mental status (Patient is not cooperating with review of systems) All Systems: A 10-system review of systems was performed and is negative for pertinent findings except as documented above in the HPI. Physical Examination Vital Signs: Vital Signs, Last 4 Hours Temp Pulse Resp BP Pulse Ox 02/21/16 04:20 99.4 F 02/21/16 03:58 19 115/70 100 02/21/16 03:00 86 17 112/66 96 General appearance: agitated (mild) ENT: oropharynx dry Effort: mildly labored Auscultation: bilateral: diminished breath sounds Cardiovascular: irregular rhythm Gastrointestinal: hypoactive bowel sounds, tender (diffuse), other (mildly distended) Extremities: no cyanosis, no edema, no clubbing normal mental status, non-focal exam Results - Laboratory Findings CBC and BMP: 02/21/16 05:07 02/21/16 05:07 ABG ABG pH 7.49 pH Units (7.32-7.45) H 02/20/16 12:33 ABG pCO2 39 mmHg (35-45) 02/20/16 12:33 ABG pO2 62 mmHg (85-104) L 02/20/16 12:33 ABG O2 Saturation 93 % (95-98) L 02/20/16 12:33 PT/INR, D-dimer PT 19.0 Seconds (9.4-12.1) H 02/14/16 21:05 Abnormal lab findings: Abnormal lab results WBC 35.6 K/mcL (4.3-11.1) H* 02/21/16 05:07 MPV 9.1 fL (9.4-12.4) L 02/21/16 05:07 Neutrophils # 32.0 K/mcL (1.6-8.9) H 02/21/16 05:07 Monocytes # 2.1 K/mcL (0.0-1.3) H 02/21/16 05:07 Nucleated RBCs/100 WBC 0.1 /100 WBC (0) H 02/20/16 08:17 Reactive Lymphocytes Present (Not Present) A 02/21/16 05:07 Smudge Cells Present (Not Present) A 02/20/16 08:17 Dohle Bodies Present (Not Present) A 02/17/16 08:01 Large Platelets Present (Not Present) A 02/18/16 04:36 Polychromasia 1+ (Not Present) A 02/21/16 05:07 Poikilocytosis 1+ (Not Present) A 02/21/16 05:07 PT 19.0 Seconds (9.4-12.1) H 02/14/16 21:05 ABG pH 7.49 pH Units (7.32-7.45) H 02/20/16 12:33 ABG pO2 62 mmHg (85-104) L 02/20/16 12:33 ABG HCO3 29.7 mEQ/L (21-27) H 02/20/16 12:33 ABG Total CO2 30.9 mEq/L (20-26) H 02/20/16 12:33 ABG O2 Saturation 93 % (95-98) L 02/20/16 12:33 ABG Base Excess 5.9 mEq/L (-2.0 to 3.0) H 02/20/16 12:33 Sodium 131 mEq/L (136-145) L 02/21/16 05:07 BUN 27 mg/dL (7-20) H 02/21/16 05:07 BUN/Creatinine Ratio 36 (6-26) H 02/21/16 05:07 Glucose 153 mg/dL (70-99) H 02/21/16 05:07 POC Glucose 179 (58-89) H 02/21/16 04:09 Calcium 7.4 mg/dL (8.6-10.8) L 02/21/16 05:07 Magnesium 1.3 mg/dL (1.6-2.6) L 02/20/16 17:10 Troponin I 0.11 ng/mL (0-0.03) H* 02/21/16 05:07 B-Natriuretic Peptide 160 pg/mL (0-100) H 02/14/16 21:05 Serum Total Protein 5.3 g/dL (6.0-8.3) L 02/15/16 03:47 Albumin 2.4 g/dL (3.5-5.0) L 02/15/16 03:47 Albumin/Globulin Ratio 0.8 (1.1-2.2) L 02/15/16 03:47 Ur Leukocyte Esterase Small (Negative) H 02/20/16 09:04 Urine Microscopic RBC 3-5 per hpf (0-3) H 02/20/16 09:04 Ur Squamous Epith Cells Many per lpf (None-Few) H 02/20/16 09:04 Ur Culture Indicated? YES (NO) A 02/20/16 09:04 Theophylline 8.2 mcg/mL (10.0-20.0) L 02/20/16 17:45 - Microbiology Findings Microbiology Findings: Microbiology, Last 48 Hours 02/20/16 09:04 Urine Culture - Final Urine,Catheterized No growth. - Clinical Findings Intake & Output: Intake & Output 02/20/16 02/20/16 02/21/16 15:59 23:59 07:59 Intake Total 500 / 500 550 / 550 Output Total 250 / 250 500 / 500 Balance 500 / 500 -250 / -250 50 / 50 Weight 57.969 kg Consult Discharge Plan - Plan Referrals: Dane Thomas MD [Primary Care Provider] - <Sriram Barrett W - Last Filed: 02/21/16 11:42> Date of Encounter: 02/21/16 All Systems: A 10-system review of systems was performed and is negative for pertinent findings except as documented above in the HPI. Physical Examination Vital Signs: Vital Signs, Last 4 Hours Temp Pulse Resp BP Pulse Ox 02/21/16 09:00 89 21 120/61 95 02/21/16 08:00 80 20 120/80 95 02/21/16 07:23 100.3 F H Results - Laboratory Findings CBC and BMP: 02/21/16 05:07 02/21/16 05:07 ABG ABG pH 7.49 pH Units (7.32-7.45) H 02/20/16 12:33 ABG pCO2 39 mmHg (35-45) 02/20/16 12:33 ABG pO2 62 mmHg (85-104) L 02/20/16 12:33 ABG O2 Saturation 93 % (95-98) L 02/20/16 12:33 PT/INR, D-dimer PT 19.0 Seconds (9.4-12.1) H 02/14/16 21:05 Abnormal lab findings: Abnormal lab results WBC 35.6 K/mcL (4.3-11.1) H* 02/21/16 05:07 MPV 9.1 fL (9.4-12.4) L 02/21/16 05:07 Neutrophils # 32.0 K/mcL (1.6-8.9) H 02/21/16 05:07 Monocytes # 2.1 K/mcL (0.0-1.3) H 02/21/16 05:07 Nucleated RBCs/100 WBC 0.1 /100 WBC (0) H 02/20/16 08:17 Reactive Lymphocytes Present (Not Present) A 02/21/16 05:07 Smudge Cells Present (Not Present) A 02/20/16 08:17 Dohle Bodies Present (Not Present) A 02/17/16 08:01 Large Platelets Present (Not Present) A 02/18/16 04:36 Polychromasia 1+ (Not Present) A 02/21/16 05:07 Poikilocytosis 1+ (Not Present) A 02/21/16 05:07 PT 19.0 Seconds (9.4-12.1) H 02/14/16 21:05 ABG pH 7.49 pH Units (7.32-7.45) H 02/20/16 12:33 ABG pO2 62 mmHg (85-104) L 02/20/16 12:33 ABG HCO3 29.7 mEQ/L (21-27) H 02/20/16 12:33 ABG Total CO2 30.9 mEq/L (20-26) H 02/20/16 12:33 ABG O2 Saturation 93 % (95-98) L 02/20/16 12:33 ABG Base Excess 5.9 mEq/L (-2.0 to 3.0) H 02/20/16 12:33 Sodium 131 mEq/L (136-145) L 02/21/16 05:07 BUN 27 mg/dL (7-20) H 02/21/16 05:07 BUN/Creatinine Ratio 36 (6-26) H 02/21/16 05:07 Glucose 153 mg/dL (70-99) H 02/21/16 05:07 POC Glucose 179 (58-89) H 02/21/16 04:09 Calcium 7.4 mg/dL (8.6-10.8) L 02/21/16 05:07 Magnesium 1.3 mg/dL (1.6-2.6) L 02/20/16 17:10 Troponin I 0.11 ng/mL (0-0.03) H* 02/21/16 05:07 B-Natriuretic Peptide 160 pg/mL (0-100) H 02/14/16 21:05 Serum Total Protein 5.3 g/dL (6.0-8.3) L 02/15/16 03:47 Albumin 2.4 g/dL (3.5-5.0) L 02/15/16 03:47 Albumin/Globulin Ratio 0.8 (1.1-2.2) L 02/15/16 03:47 Ur Leukocyte Esterase Small (Negative) H 02/20/16 09:04 Urine Microscopic RBC 3-5 per hpf (0-3) H 02/20/16 09:04 Ur Squamous Epith Cells Many per lpf (None-Few) H 02/20/16 09:04 Ur Culture Indicated? YES (NO) A 02/20/16 09:04 Theophylline 8.2 mcg/mL (10.0-20.0) L 02/20/16 17:45 - Microbiology Findings Microbiology Findings: Microbiology, Last 48 Hours 02/20/16 09:04 Urine Culture - Final Urine,Catheterized No growth. - Clinical Findings Intake & Output: Intake & Output 02/20/16 02/21/16 02/21/16 23:59 07:59 15:59 Intake Total 1550 / 1550 Output Total 250 / 250 575 / 575 Balance -250 / -250 975 / 975 Weight 57.969 kg - Attending Attestation I examined this patient and my medical decision-making was reviewed with the HEAT AND [employer] INSULATOR/PA/Advanced Practice Nurse/Resident Physician. I agree with the documented findings, disposition and treatment plan as described except to the extent set forth below. Patient seen and examined at bedside All labs and Radiology personally reviewed 80yo with advanced COPD (multiple admissions) (known from Pulmonary Clinic) Admitted for SOB on 02/14 Increased Abdominal pain over last few days Hypotensive overnight with concern for Sustained VT vs afib with aberrancy/LBBB Fluid responsive with CT showing diffuse colitis concerning for Cdiff ?early megacolon Impression Severe Sepsis ?Ventricular Arrhythmia Chronic respiratory failure s/t COPD History Afib Plan. NPO except meds Pain control [place] Stool culture Stop Levaquin/Aztreonam HOld Xarelto (bleeding from colitis possible surgery) Cont Flagyl IV Check lactate start PO/Rectal Vanc Surgery Consult Amiodarone for possible Vtach (cards recs appreciated) Cont bronchodilators
[2016-02-21] MEDS ORDERED: D5% in Water 1,000 ML IV PRN (07:06)
[2016-02-21] MEDS ORDERED: Dextrose Gel 15 GM PO PRN ×2 (07:06)
[2016-02-21] MEDS ORDERED: *HR* Dextrose 50 % in Water (Syg) 50 ML SYRINGE IVP PRN (07:06)
[2016-02-21] MEDS: Cholecalciferol (D-3) 1,000 UNIT TABLET PO SCH (08:50)
[2016-02-21] MEDS: Vancomycin Oral Soln 250 MG/2.5 ML UDC PO SCH ×4 (08:55→20:25)
[2016-02-21] MEDS: 0.9 % Sodium Chloride 1,000 ML IVC SCH (08:55)
[2016-02-21] MEDS: Insulin LISPRO 300 UNITS/3 ML VIAL SQ SCH ×3 (08:56→16:58)
[2016-02-21] MEDS ORDERED: amLODIPine 5 MG TABLET PO SCH (09:00)
[2016-02-21] MEDS ORDERED: Lisinopril 20 MG TABLET PO SCH (09:00)
[2016-02-21] MEDS ORDERED: Levofloxacin 750 MG/150 ML 750 MG/150 ML BAG IVPB SCH ×2 (09:00)
[2016-02-21] MEDS ORDERED: Furosemide 20 MG TABLET PO SCH (09:00)
--- NOTE | 2016-02-21 09:39 | General Surgery Consult Note ---
<Traci Garrett - Last Filed: 02/21/16 17:38> Date of Encounter: 02/21/16 Time of Encounter: 09:36 Assessment and Plan (1) Colitis presumed infectious Current Visit: Yes Status: Acute currently on oral vancomycin and IV flagyl add rectal vancomycin Patient is not a good surgical candidate she would most likely not survive surgery. (2) Dysrhythmia, cardiac Current Visit: Yes Status: Acute Currently on amiodarone for V. tach Management per pulmonary/critical care team Qualifiers: Arrhythmia type: ventricular tachycardia Qualified Code(s): I47.2 - Ventricular tachycardia (3) Acute respiratory failure with hypoxia Current Visit: Yes Status: Acute Patient currently on 6 L supplemental oxygen via nasal cannula Management per pulmonary/critical care team (4) COPD (chronic obstructive pulmonary disease) Current Visit: Yes Status: Chronic End-stage COPD Management per pulmonary/critical care team Qualifiers: COPD type: COPD with acute exacerbation Qualified Code(s): J44.1 - Chronic obstructive pulmonary disease with (acute) exacerbation (5) Hx of pulmonary embolus Current Visit: Yes Status: Chronic History of Present Illness Consult date: 02/21/16 Reason for consult: other (possible toxic megacolon) Requesting physician: Anthony Pierre History of present illness: Ms. Jones is an 80-year-old female who presented to the ER on February 13 complaining of shortness of breath. She was admitted to the hospital with presumed pneumonia. Prior to admission, the patient was at home on hospice due to end-stage COPD. Other relevant past medical history includes CAD, HTN, HLD, hx of UT, hx of PE, hx of SVT, and systolic heart failure. On admission day 7, CT scan of the abdomen/pelvis showed moderate pleural thickening likely representing colitis greatest involving the cecum. The patient also had a jump in her white blood cell count on this day from 25 to 37.1. She was started on Flagyl at that point in time in order was placed for a C. difficile toxin test of the stool. She was later transferred to the ICU due to episodes of tachycardia, possibly sustained V. tach. She was hypotensive at the time but responded to fluid boluses. Today, she is complaining of shortness of breath and the need to have a bowel movement. She states that she has not had a bowel movement in 5 days to a week , although review of hospital records shows a bowel movement one day ago and 3 days ago. She states that she ran out of her stool softener medication when her doctor stopped giving it to her. She takes chronic oxycodone for pain management. Past Med Surg Social Fam HX - Past Medical History Medical history: arthritis, COPD, coronary artery disease, GERD, GI bleed, hyperlipidemia, hypertension, myocardial infarction, osteoporosis, pulmonary embolus, renal disease, SVT, other Psychiatric history: anxiety, depression - Past Surgical History Surgical History: cataract, other - Social History Smoking Status: Former smoker Smokeless Tobacco Status: No Alcohol use: none Drug use: none - Family History Mother Living Status: Hx Family Cardiac Disorders: (HTN) Hx Family Neurologic Disorders: Yes (alzheimers) Father Living Status: Hx Family Cancer: Yes (brain cancer) Son Adopted: No Living Status: Daughter Adopted: [place]: 62 Family Member Ethnicity: Non- Living Status: Still Living Hx Family Cardiac Disorders: Yes Hx Family Respiratory Disorders: Yes Hx Family Cancer: Yes (melanoma) Hx Family Genitourinary Disorders: No Hx Family Endocrine Disorder: No Hx Family Musculoskeletal Disorders: No Hx Family Neuromuscular Disorders: No Hx Family Neurologic Disorders: No Hx Family HEENT Disorders: No Hx Family Autoimmune Disorders: No Hx Family Reproductive Disorders: No Hx Family Psychosocial Disorders: No Medications and Allergies Amlodipine [Norvasc] 2.5 mg PO DAILY 01/21/15 [History] Ipratropium/Albuterol Neb [Duoneb] 3 ml IH Q6HR PRN 01/21/15 [History] Lisinopril [Zestril] 40 mg PO DAILY 01/21/15 [History] Pravastatin Sodium [Pravachol] 40 mg PO DAILY 01/21/15 [History] Theophylline Anhydrous [Theodur] 300 mg PO DAILY 01/21/15 [History] Isosorbide DInitrate [Isosorbide Dinitrate] 10 mg PO BID 07/06/15 [History] Oxybutynin Chloride [Ditropan Xl] 5 mg PO DAILY 07/28/15 [History] Oxygen 4 l NS CONT 07/28/15 [History] Budesonide/Formoterol 160/4.5 [Symbicort 160/4.5] 2 puff IH BID 11/12/15 [ History] Metoprolol [Lopressor] 25 mg PO BID 11/12/15 [History] Tiotropium [Spiriva] 18 mcg IH DAILY 11/12/15 [History] Cholecalciferol (Vitamin D3) [Vitamin D3] 3,000 unit PO DAILY 12/20/15 [History] Omeprazole [PriLOSEC] 40 mg PO DAILY 12/20/15 [History] Docusate [Colace] 100 mg PO BID #30 capsule 12/24/15 [Rx] Rivaroxaban [Xarelto] 20 mg PO HS 01/10/16 [History] Doxycycline 100 mg PO BID #6 capsule 01/14/16 [Rx] Furosemide [Lasix] 20 mg PO DAILY 02/14/16 [History] HYDROcodone/Acet 5/325 mg [[place] 5-325 mg] 1 tab PO Q6H PRN 02/14/16 [History] Allergies acetaminophen [From Tylenol] Allergy (Unknown, Verified 02/14/16 22:38) See Comments UNABLE TO CONFIRM REACTION- ALL ALLERGIES TAKEN FROM [facility] LAST APPT. Amoxicillin Allergy (Unknown, Verified 02/14/16 22:38) See Comments UNABLE TO CONFIRM REACTION- ALL ALLERGIES TAKEN FROM [facility] LAST APPT. clarithromycin Allergy (Unknown, Verified 02/14/16 22:38) See Comments UNABLE TO CONFIRM REACTION- ALL ALLERGIES TAKEN FROM [facility] LAST APPT. clavulanic acid Allergy (Unknown, Verified 02/14/16 22:38) See Comments UNABLE TO CONFIRM REACTION- ALL ALLERGIES TAKEN FROM [facility] LAST APPT. codeine Allergy (Unknown, Verified 02/14/16 22:38) See Comments UNABLE TO CONFIRM REACTION- ALL ALLERGIES TAKEN FROM [facility] LAST APPT. gabapentin Allergy (Unknown, Verified 02/14/16 22:38) See Comments UNABLE TO CONFIRM REACTION- ALL ALLERGIES TAKEN FROM [facility] LAST APPT. Iodinated Contrast Media - Oral and Allergy (Unknown, Verified 02/14/16 22:38) See Comments UNABLE TO CONFIRM REACTION- ALL ALLERGIES TAKEN FROM [facility] LAST APPT. Penicillins Allergy (Unknown, Verified 02/14/16 22:38) See Comments UNABLE TO CONFIRM REACTION- ALL ALLERGIES TAKEN FROM [facility] LAST APPT. Sulfa (Sulfonamide Antibiotics) Allergy (Unknown, Verified 02/14/16 22:38) See Comments UNABLE TO CONFIRM REACTION- ALL ALLERGIES TAKEN FROM [facility] LAST APPT. Review of Systems All systems PM: A 10-system review of systems was performed and is negative for pertinent findings except as documented above in the HPI. - EENT Nose, mouth and throat: dry mouth - Respiratory dyspnea - Gastrointestinal abdominal pain, change in bowel habits, constipation - Genitourinary Genitourinary: no dysuria General Surgery Exam Initial Vital Signs Temp Pulse Resp BP Pulse Ox 99.6 F 121 36 130/79 98 02/14/16 20:07 02/14/16 20:07 02/14/16 20:07 02/14/16 20:07 02/14/16 20:07 - General physical appearance well developed, other (mild respiratory distress) - Eyes normal ocular movement - ENT dry mucosa, atraumatic, normocephalic - Neck trachea midline - Respiratory negative: normal respiratory effort (tachypneic, using accessory muscles of respiration) - Neurologic Present: CN 2-12 grossly intact - Musculoskeletal Present: other (moderate deconditioning) - Psychiatric Psychiatric general surgery: Present: A&Ox3, speech is normal Exam Initial Vital Signs Temp Pulse Resp BP Pulse Ox 99.6 F 121 36 130/79 98 02/14/16 20:07 02/14/16 20:07 02/14/16 20:07 02/14/16 20:07 02/14/16 20:07 Results - Labs 02/21/16 05:07 02/21/16 05:07 Abnormal lab results WBC 35.6 K/mcL (4.3-11.1) H* 02/21/16 05:07 MPV 9.1 fL (9.4-12.4) L 02/21/16 05:07 Neutrophils # 32.0 K/mcL (1.6-8.9) H 02/21/16 05:07 Monocytes # 2.1 K/mcL (0.0-1.3) H 02/21/16 05:07 Nucleated RBCs/100 WBC 0.1 /100 WBC (0) H 02/20/16 08:17 Reactive Lymphocytes Present (Not Present) A 02/21/16 05:07 Smudge Cells Present (Not Present) A 02/20/16 08:17 Dohle Bodies Present (Not Present) A 02/17/16 08:01 Large Platelets Present (Not Present) A 02/18/16 04:36 Polychromasia 1+ (Not Present) A 02/21/16 05:07 Poikilocytosis 1+ (Not Present) A 02/21/16 05:07 PT 19.0 Seconds (9.4-12.1) H 02/14/16 21:05 ABG pH 7.49 pH Units (7.32-7.45) H 02/20/16 12:33 ABG pO2 62 mmHg (85-104) L 02/20/16 12:33 ABG HCO3 29.7 mEQ/L (21-27) H 02/20/16 12:33 ABG Total CO2 30.9 mEq/L (20-26) H 02/20/16 12:33 ABG O2 Saturation 93 % (95-98) L 02/20/16 12:33 ABG Base Excess 5.9 mEq/L (-2.0 to 3.0) H 02/20/16 12:33 Sodium 131 mEq/L (136-145) L 02/21/16 05:07 BUN 27 mg/dL (7-20) H 02/21/16 05:07 BUN/Creatinine Ratio 36 (6-26) H 02/21/16 05:07 Glucose 153 mg/dL (70-99) H 02/21/16 05:07 POC Glucose 179 (58-89) H 02/21/16 04:09 Calcium 7.4 mg/dL (8.6-10.8) L 02/21/16 05:07 Magnesium 1.3 mg/dL (1.6-2.6) L 02/20/16 17:10 Troponin I 0.11 ng/mL (0-0.03) H* 02/21/16 05:07 B-Natriuretic Peptide 160 pg/mL (0-100) H 02/14/16 21:05 Serum Total Protein 5.3 g/dL (6.0-8.3) L 02/15/16 03:47 Albumin 2.4 g/dL (3.5-5.0) L 02/15/16 03:47 Albumin/Globulin Ratio 0.8 (1.1-2.2) L 02/15/16 03:47 Ur Leukocyte Esterase Small (Negative) H 02/20/16 09:04 Urine Microscopic RBC 3-5 per hpf (0-3) H 02/20/16 09:04 Ur Squamous Epith Cells Many per lpf (None-Few) H 02/20/16 09:04 Ur Culture Indicated? YES (NO) A 02/20/16 09:04 Theophylline 8.2 mcg/mL (10.0-20.0) L 02/20/16 17:45 Diabetes panel 02/20/16 02/21/16 Range/Units 17:10 05:07 Sodium 130 L 131 L (136-145) mEq/L Potassium 4.1 3.8 (3.5-4.5) mEq/L Chloride 96 L 101 (98-109) mEq/L Carbon Dioxide 26 24 (19-29) mEq/L BUN 30 H D 27 H (7-20) mg/dL Creatinine 0.83 0.74 (0.57-1.11) mg/dL Glucose 154 H 153 H (70-99) mg/dL Calcium 8.0 L 7.4 L (8.6-10.8) mg/dL Calcium panel 02/20/16 02/21/16 Range/Units 17:10 05:07 Calcium 8.0 L 7.4 L (8.6-10.8) mg/dL Pituitary panel 02/20/16 02/21/16 Range/Units 17:10 05:07 Sodium 130 L 131 L (136-145) mEq/L Potassium 4.1 3.8 (3.5-4.5) mEq/L Chloride 96 L 101 (98-109) mEq/L Carbon Dioxide 26 24 (19-29) mEq/L BUN 30 H D 27 H (7-20) mg/dL Creatinine 0.83 0.74 (0.57-1.11) mg/dL Glucose 154 H 153 H (70-99) mg/dL Calcium 8.0 L 7.4 L (8.6-10.8) mg/dL Adrenal panel 02/20/16 02/21/16 Range/Units 17:10 05:07 Sodium 130 L 131 L (136-145) mEq/L Potassium 4.1 3.8 (3.5-4.5) mEq/L Chloride 96 L 101 (98-109) mEq/L Carbon Dioxide 26 24 (19-29) mEq/L BUN 30 H D 27 H (7-20) mg/dL Creatinine 0.83 0.74 (0.57-1.11) mg/dL Glucose 154 H 153 H (70-99) mg/dL Calcium 8.0 L 7.4 L (8.6-10.8) mg/dL All other labs normal. Consult Discharge Plan - Plan Referrals: Dane Thomas MD [Primary Care Provider] - <Norma Edouard - Last Filed: 02/22/16 15:48> Assessment and Plan (1) Leukocytosis Current Visit: Yes Status: Acute presumed C diff colitis, continue iv flagyl, po vanco and start vanco enemas trend wbc Qualifiers: Leukocytosis type: unspecified Qualified Code(s): D72.829 - Elevated white blood cell count, unspecified (2) Acute colitis Current Visit: Yes Status: Acute pt ct shows colitis, worse at cecum presumed c diff colitis patient is not a good operative candidate due to comorbities, she received xarelto last night, her severe COPD - she would unlikely be able to get off a vent post op and if she did her lung disease is so grave she would likely be reintubated and has expressed no desire to be intermediate frame tender sustained on a vent unfortunately, if we cannot get her colitis under control she may not survive. continue ivf hydration, pain control, serial abdominal exams (3) Colitis presumed infectious Current Visit: Yes Status: Acute patient would likely survive surgery it is the post-op care due to her comorbities and severe copd that she will likely not survive. This has been discussed with the patient and she understands (4) Dysrhythmia, cardiac Current Visit: Yes Status: Acute Qualifiers: Arrhythmia type: ventricular tachycardia Qualified Code(s): I47.2 - Ventricular tachycardia (5) COPD (chronic obstructive pulmonary disease) Current Visit: Yes Status: Chronic Qualifiers: COPD type: COPD with acute exacerbation Qualified Code(s): J44.1 - Chronic obstructive pulmonary disease with (acute) exacerbation (6) Abdominal pain Current Visit: No Status: Acute Qualifiers: History of Present Illness History of present illness: Patient is 80 yo female admitted for SOB after a fall. She was currently in hospice for end-stage COPD. She developed diffused sharp and crampy mid abdominal pain and an increase in her WBC count (from admission) and was transferred to ICU. She had a CT scan of the abdomen and pelvis which showed cecal wall thickening and inflammation and to a lesser degree ascending and transverse colon. She denies any bowel movements for several days, no diarrhea. The nursing charting reflects bm's about a day ago which the patient denies. She was started on flagyl overnight when transfered to icu. She was started on po vanco by the icu team. She was also having issues with V-tach. Past Med Surg Social Fam HX - Past Medical History Source: patient Medical history: COPD (severe, previously on hospice for) - Past Surgical History Surgical History: other (breast implant left) Review of Systems All systems PM: A 10-system review of systems was performed and is negative for pertinent findings except as documented above in the HPI. General Surgery Exam Initial Vital Signs Temp Pulse Resp BP Pulse Ox 99.6 F 121 36 130/79 98 02/14/16 20:07 02/14/16 20:07 02/14/16 20:07 02/14/16 20:07 02/14/16 20:07 - General physical appearance moderate distress, moderate pain, chronically ill - Eyes PERRL, normal ocular movement - ENT dry mucosa, atraumatic, normocephalic - Neck trachea midline - Respiratory normal expansion, clear to auscultation - Cardiovascular Cardiovascular exam: Present: irregular rhythm - Abdomen Abdomen general surgery: Present: bowel sounds present, soft, distended, tender. Absent: guarding, rebound Abdominal Tenderness: Present: diffusely - Integumentary Integumentary general surgery: Present: warm and dry, no abnormal pigmentation - Neurologic Present: CN 2-12 grossly intact - Psychiatric Psychiatric general surgery: Present: A&Ox3, oriented to person, speech is normal Exam Initial Vital Signs Temp Pulse Resp BP Pulse Ox 99.6 F 121 36 130/79 98 02/14/16 20:07 02/14/16 20:07 02/14/16 20:07 02/14/16 20:07 02/14/16 20:07 Results - Labs 02/22/16 15:15 02/22/16 03:44 Abnormal lab results WBC 69.7 K/mcL (4.3-11.1) H* 02/22/16 15:15 RDW 14.8 % (11.5-14.5) H 02/22/16 15:15 Neutrophils # 41.5 K/mcL (1.6-8.9) H 02/22/16 03:44 Lymphocytes # 7.3 K/mcL (0.6-4.6) H 02/22/16 03:44 Monocytes # 3.1 K/mcL (0.0-1.3) H 02/22/16 03:44 Nucleated RBCs/100 WBC 0.1 /100 WBC (0) H 02/22/16 15:15 Reactive Lymphocytes Present (Not Present) A 02/22/16 03:44 Smudge Cells Present (Not Present) A 02/20/16 08:17 Dohle Bodies Present (Not Present) A 02/17/16 08:01 Large Platelets Present (Not Present) A 02/18/16 04:36 Polychromasia 1+ (Not Present) A 02/21/16 05:07 Poikilocytosis 1+ (Not Present) A 02/21/16 05:07 PT 20.7 Seconds (9.4-12.1) H 02/21/16 17:20 ABG pH 7.49 pH Units (7.32-7.45) H 02/20/16 12:33 ABG pO2 62 mmHg (85-104) L 02/20/16 12:33 ABG HCO3 29.7 mEQ/L (21-27) H 02/20/16 12:33 ABG Total CO2 30.9 mEq/L (20-26) H 02/20/16 12:33 ABG O2 Saturation 93 % (95-98) L 02/20/16 12:33 ABG Base Excess 5.9 mEq/L (-2.0 to 3.0) H 02/20/16 12:33 Sodium 133 mEq/L (136-145) L 02/22/16 03:44 BUN 34 mg/dL (7-20) H 02/22/16 03:44 BUN/Creatinine Ratio 40 (6-26) H 02/22/16 03:44 Glucose 131 mg/dL (70-99) H 02/22/16 03:44 POC Glucose 161 (58-89) H 02/21/16 20:32 Calcium 7.6 mg/dL (8.6-10.8) L 02/22/16 03:44 Ionized Calcium 1.04 mmol/L (1.15-1.35) L 02/22/16 03:44 Troponin I 0.11 ng/mL (0-0.03) H* 02/21/16 05:07 B-Natriuretic Peptide 160 pg/mL (0-100) H 02/14/16 21:05 Serum Total Protein 4.2 g/dL (6.0-8.3) L 02/22/16 03:44 Albumin 1.7 g/dL (3.5-5.0) L 02/22/16 03:44 Albumin/Globulin Ratio 0.7 (1.1-2.2) L 02/22/16 03:44 Ur Leukocyte Esterase Small (Negative) H 02/20/16 09:04 Urine Microscopic RBC 3-5 per hpf (0-3) H 02/20/16 09:04 Ur Squamous Epith Cells Many per lpf (None-Few) H 02/20/16 09:04 Ur Culture Indicated? YES (NO) A 02/20/16 09:04 Theophylline 8.2 mcg/mL (10.0-20.0) L 02/20/16 17:45 Diabetes panel 02/21/16 02/22/16 Range/Units 17:20 03:44 Sodium 133 L 133 L (136-145) mEq/L Potassium 3.7 3.9 (3.5-4.5) mEq/L Chloride 101 102 (98-109) mEq/L Carbon Dioxide 22 22 (19-29) mEq/L BUN 30 H 34 H (7-20) mg/dL Creatinine 0.72 0.86 (0.57-1.11) mg/dL Glucose 184 H 131 H (70-99) mg/dL Calcium 7.5 L 7.6 L (8.6-10.8) mg/dL AST 14 (5-34) Units/L ALT 12 (0-55) Units/L Alkaline Phosphatase 82 (38-126) Units/L Albumin 1.7 L (3.5-5.0) g/dL Calcium panel 02/21/16 02/22/16 Range/Units 17:20 03:44 Calcium 7.5 L 7.6 L (8.6-10.8) mg/dL Phosphorus 3.9 (2.3-4.7) mg/dL Albumin 1.7 L (3.5-5.0) g/dL Pituitary panel 02/21/16 02/22/16 Range/Units 17:20 03:44 Sodium 133 L 133 L (136-145) mEq/L Potassium 3.7 3.9 (3.5-4.5) mEq/L Chloride 101 102 (98-109) mEq/L Carbon Dioxide 22 22 (19-29) mEq/L BUN 30 H 34 H (7-20) mg/dL Creatinine 0.72 0.86 (0.57-1.11) mg/dL Glucose 184 H 131 H (70-99) mg/dL Calcium 7.5 L 7.6 L (8.6-10.8) mg/dL Adrenal panel 02/21/16 02/22/16 Range/Units 17:20 03:44 Sodium 133 L 133 L (136-145) mEq/L Potassium 3.7 3.9 (3.5-4.5) mEq/L Chloride 101 102 (98-109) mEq/L Carbon Dioxide 22 22 (19-29) mEq/L BUN 30 H 34 H (7-20) mg/dL Creatinine 0.72 0.86 (0.57-1.11) mg/dL Glucose 184 H 131 H (70-99) mg/dL Calcium 7.5 L 7.6 L (8.6-10.8) mg/dL Total Bilirubin 0.4 (0.2-1.2) mg/dL AST 14 (5-34) Units/L ALT 12 (0-55) Units/L Alkaline Phosphatase 82 (38-126) Units/L Albumin 1.7 L (3.5-5.0) g/dL All other labs normal. - Imaging CT scan - abdomen: report reviewed, image reviewed CT scan - pelvis: report reviewed, image reviewed
[2016-02-21] MEDS ORDERED: *HR* Morphine 2 MG/ML SYRINGE IVP PRN (09:54)
[2016-02-21] MEDS ORDERED: *HR* FentaNYL (PF) 100 MCG/2 ML VIAL IVP PRN (10:01)
[2016-02-21] MEDS ORDERED: Pantoprazole 40 MG in 0.9 % Sodium Chloride 50 ML IVPB SCH (10:15)
[2016-02-21] MEDS ORDERED: Pantoprazole 40 MG in 0.9 % Sodium Chloride 100 ML IVPB SCH (10:30)
--- NOTE | 2016-02-21 10:33 | Cardiology Consult Note ---
Date of Encounter: 02/21/16 Time of Encounter: 10:27 Assessment and Plan (1) Supraventricular tachycardia Current Visit: No Status: Acute Patient episode of supraventricular tachycardia recorded on 02/20/2016, EKG has been reviewed. Patient has known left bundle branch block. Patient is acutely ill with right lower lobe pneumonia, acute on chronic respiratory failure and current concerns for toxic megacolon WBCs of 35. Patient was started on amiodarone with rate control. Patient continues to have occasional runs of ventricular tachycardia. Suspect secondary to underlining medical conditions. Plan: - Treat underlying medical conditions which are likely the cause of the patient' s rapid ventricular rate - Continue amiodarone at current rates. - Continue current cardiac medications. - Continue frequent vitals monitoring, and cardiac monitoring. (2) Elevated troponin Current Visit: No Status: Acute Patient demonstrated elevation in her troponin levels with a high of 0.15 followed by 0.11 and 0.11. This is likely secondary to ventricular tachycardia in a patient with known coronary disease recent NSTEMI that is medically managed , HLD and HTN. Plan: - Continue to treat underlying medical conditions. - Continue current anticoagulation - Aspirin 81mg PO daily added. (3) Coronary artery disease Current Visit: No Status: Chronic Patient has known history of coronary artery disease and a recent non-ST elevation [place]. Continue atorvastatin 40 mg. Plan: - Continue atorvastatin 40 mg by mouth at bedtime - Discontinue simvastatin Qualifiers: Qualified Code(s): I25.10 - Atherosclerotic heart disease of chilkoot coronary artery without angina pectoris (4) Congestive heart failure Current Visit: No Status: Chronic Patient has a history of non-ST elevation WA in December 2015 echocardiogram at that time demonstrated an LVEF of 40-45%, atypical septal motion with left bundle branch block, indeterminate diastolic dysfunction, normal right ventricular structure and size, normal left ventricular function, mild left ventricular concentric hypertrophy, no significant valvular dysfunction. No echocardiogram since. Patient does not appear to be fluid overloaded but does have bilateral lower extremity edema nonpitting in nature and has been present since admission. Echocardiogram from 04/06/2013: Demonstrated LVEF of 65-70 percents with atypical septal motion secondary to bundle branch block. Moderate left ventricular hypertrophy. LVPWD and IVSD 1.4 cm, a basal sigmoid septum is present without LVOT obstruction, there is evidence of mild diastolic dysfunction of the left ventricle. Mild biatrial enlargement. Normal right ventricular size and function. Mild tricuspid regurgitation. Mild pulmonic regurgitation. Estimated RVSP was 38mmHg, mild pulmonary hypertension. Trivial circumferential pericardial effusion. Plan: - Continue Lasix 20 mg by mouth daily - Continue current cardiac regimen. Qualifiers: Qualified Code(s): I50.42 - Chronic combined systolic (congestive) and diastolic (congestive) heart failure Discussion w patient/family: The assessment and plan as outlined above was discussed with the patient and/or family members who expressed understanding and agreement. All questions were answered. Thank you for involving us in the care of your patient. Please call with any questions. History of Present Illness Consult date: 02/21/16 Requesting physician: Adis Gee Consult reason: Sustainted Vtach Chief complaint: SOB History of present illness: Ms. Jones is a 80 year old female with PMH NSTEMI CAD, HLD, HTN, PE, Moderate emphysema, SVT, arthritis, GI bleed was admitted on 02/15/2016 with Right lower lobe pneumonia was transferred to the ICU last evening after she was found to have ventricular tachycardia. She was started on Amiodarone with improvement in her rate control. She is currently followed by pulmonary and general surgery with concern for possible c.diff and toxic mary-colon. Patient complains of diffuse pain in her abdominal cavity and oral pain. She denies any chest pain, , chest pressure, headaches or blurry vision. Patient is a poor historian and mental status is altered. Cardiac History: Patient has a history of non-ST elevation [place] in December 2015 echocardiogram at that time demonstrated an LVEF of 40-45%, atypical septal motion with left bundle branch block, indeterminate diastolic dysfunction, normal right ventricular structure and size, normal left ventricular function, mild left ventricular concentric hypertrophy, no significant valvular dysfunction. No echocardiogram since. Echocardiogram from 04/06/2013: Demonstrated LVEF of 65-70 percents with atypical septal motion secondary to bundle branch block. Moderate left ventricular hypertrophy. LVPWD and IVSD 1.4 cm, a basal sigmoid septum is present without LVOT obstruction, there is evidence of mild diastolic dysfunction of the left ventricle. Mild biatrial enlargement. Normal right ventricular size and function. Mild tricuspid regurgitation. Mild pulmonic regurgitation. Estimated RVSP was 38mmHg, mild pulmonary hypertension. Trivial circumferential pericardial effusion. Past Med Surg Social Fam HX - Past Medical History Medical history: arthritis, COPD, coronary artery disease, GERD, GI bleed, hyperlipidemia, hypertension, myocardial infarction, osteoporosis, pulmonary embolus, renal disease, SVT, other Psychiatric history: anxiety, depression - Past Surgical History Surgical History: cataract, other - Social History Smoking Status: Former smoker Smokeless Tobacco Status: No Alcohol use: none Drug use: none - Family History Mother Living Status: Hx Family Cardiac Disorders: (HTN) Hx Family Neurologic Disorders: Yes (alzheimers) Father Living Status: Hx Family Cancer: Yes (brain cancer) Son Adopted: No Living Status: Daughter Adopted: [place]: 62 Family Member Ethnicity: Non- Living Status: Still Living Hx Family Cardiac Disorders: Yes Hx Family Respiratory Disorders: Yes Hx Family Cancer: Yes (melanoma) Hx Family Genitourinary Disorders: No Hx Family Endocrine Disorder: No Hx Family Musculoskeletal Disorders: No Hx Family Neuromuscular Disorders: No Hx Family Neurologic Disorders: No Hx Family HEENT Disorders: No Hx Family Autoimmune Disorders: No Hx Family Reproductive Disorders: No Hx Family Psychosocial Disorders: No Medications and Allergies Amlodipine [Norvasc] 2.5 mg PO DAILY 01/21/15 [History] Ipratropium/Albuterol Neb [Duoneb] 3 ml IH Q6HR PRN 01/21/15 [History] Lisinopril [Zestril] 40 mg PO DAILY 01/21/15 [History] Pravastatin Sodium [Pravachol] 40 mg PO DAILY 01/21/15 [History] Theophylline Anhydrous [Theodur] 300 mg PO DAILY 01/21/15 [History] Isosorbide DInitrate [Isosorbide Dinitrate] 10 mg PO BID 07/06/15 [History] Oxybutynin Chloride [Ditropan Xl] 5 mg PO DAILY 07/28/15 [History] Oxygen 4 l NS CONT 07/28/15 [History] Budesonide/Formoterol 160/4.5 [Symbicort 160/4.5] 2 puff IH BID 11/12/15 [ History] Metoprolol [Lopressor] 25 mg PO BID 11/12/15 [History] Tiotropium [Spiriva] 18 mcg IH DAILY 11/12/15 [History] Cholecalciferol (Vitamin D3) [Vitamin D3] 3,000 unit PO DAILY 12/20/15 [History] Omeprazole [PriLOSEC] 40 mg PO DAILY 12/20/15 [History] Docusate [Colace] 100 mg PO BID #30 capsule 12/24/15 [Rx] Rivaroxaban [Xarelto] 20 mg PO HS 01/10/16 [History] Doxycycline 100 mg PO BID #6 capsule 01/14/16 [Rx] Furosemide [Lasix] 20 mg PO DAILY 02/14/16 [History] HYDROcodone/Acet 5/325 mg [[place] 5-325 mg] 1 tab PO Q6H PRN 02/14/16 [History] Allergies acetaminophen [From Tylenol] Allergy (Unknown, Verified 02/14/16 22:38) See Comments UNABLE TO CONFIRM REACTION- ALL ALLERGIES TAKEN FROM [facility] LAST APPT. Amoxicillin Allergy (Unknown, Verified 02/14/16 22:38) See Comments UNABLE TO CONFIRM REACTION- ALL ALLERGIES TAKEN FROM [facility] LAST APPT. clarithromycin Allergy (Unknown, Verified 02/14/16 22:38) See Comments UNABLE TO CONFIRM REACTION- ALL ALLERGIES TAKEN FROM [facility] LAST APPT. clavulanic acid Allergy (Unknown, Verified 02/14/16 22:38) See Comments UNABLE TO CONFIRM REACTION- ALL ALLERGIES TAKEN FROM [facility] LAST APPT. codeine Allergy (Unknown, Verified 02/14/16 22:38) See Comments UNABLE TO CONFIRM REACTION- ALL ALLERGIES TAKEN FROM [facility] LAST APPT. gabapentin Allergy (Unknown, Verified 02/14/16 22:38) See Comments UNABLE TO CONFIRM REACTION- ALL ALLERGIES TAKEN FROM [facility] LAST APPT. Iodinated Contrast Media - Oral and Allergy (Unknown, Verified 02/14/16 22:38) See Comments UNABLE TO CONFIRM REACTION- ALL ALLERGIES TAKEN FROM [facility] LAST APPT. Penicillins Allergy (Unknown, Verified 02/14/16 22:38) See Comments UNABLE TO CONFIRM REACTION- ALL ALLERGIES TAKEN FROM [facility] LAST APPT. Sulfa (Sulfonamide Antibiotics) Allergy (Unknown, Verified 02/14/16 22:38) See Comments UNABLE TO CONFIRM REACTION- ALL ALLERGIES TAKEN FROM [facility] LAST APPT. ROS unobtainable: due to mental status All Systems Review: A 10-system review of systems was performed and is negative for pertinent findings except as documented above in the HPI. Physical Examination Vital Signs, Last 4 Hours Temp Pulse Resp BP Pulse Ox 02/21/16 09:00 89 21 120/61 95 02/21/16 08:00 80 20 120/80 95 02/21/16 07:23 100.3 F H General: Conversant, Other (Mild distress, mental status slightly altered) HEENT: Atraumatic, Normocephaly, Mucus Membranes Moist, Other (Oral thrush) Neck: No JVD, Normal carotid pulses Cardiac: Reg Rate and Rhythm, No Murmur Lungs: Other (Crackles in bilateral lung bases. All the lung garcia clear) Neuro: Alert and responsive, No focal deficits noted Abdomen: Other (Patient's abdomen is slightly distended and diffusely tender to palpation. Poor bowel sounds) Skin: Other Musculoskeletal: No Chest Wall Tenderness Extremities: No Clubbing, No Cyanosis, Other (A stenosis diffuse bilateral nonpitting edema of the lower extremities) Results 02/21/16 05:07 02/21/16 05:07 Lab Results 02/20/16 02/20/16 02/20/16 17:10 17:10 17:10 WBC 37.1 H* Hgb 11.8 Hct 34.2 L Plt Count 245 Sodium 130 L Potassium 4.1 Chloride 96 L Carbon Dioxide 26 BUN 30 H D Creatinine 0.83 Glucose 154 H Calcium 8.0 L Magnesium 1.3 L Troponin I 0.15 H* 02/21/16 02/21/16 02/21/16 01:10 05:07 05:07 WBC 35.6 H* Hgb 12.3 Hct 36.1 Plt Count 245 Sodium 131 L Potassium 3.8 Chloride 101 Carbon Dioxide 24 BUN 27 H Creatinine 0.74 Glucose 153 H Calcium 7.4 L Magnesium Troponin I 0.11 H* 02/21/16 05:07 WBC Hgb Hct Plt Count Sodium Potassium Chloride Carbon Dioxide BUN Creatinine Glucose Calcium Magnesium Troponin I 0.11 H* Consult Discharge Plan - Plan Referrals: Dane Thomas MD [Primary Care Provider] -
[2016-02-21] MEDS: Budesonide/Formoterol 160/4.5 MDI IH SCH ×2 (10:56→22:30)
[2016-02-21] MEDS: Nystatin SUSP 5 ML UD.LIQ PO SCH ×4 (11:04→20:25)
[2016-02-21] MEDS: *HR* Morphine 2 MG/ML SYRINGE IVP PRN ×3 (11:27→20:43)
[2016-02-21] MEDS: Vancomycin 500 MG, Sodium Chloride IRRigation 250 ML RC SCH ×4 (11:28→22:00)
[2016-02-21] MEDS: Aspirin 81 MG TAB.CHEW PO SCH (12:58)
[2016-02-21] MEDS ORDERED: Ringers Solution, Lactated 500 ML IVC ONE (13:03)
[2016-02-21] MEDS ORDERED: *HR* Heparin 5,000 UNIT/ML VIAL IVP PRN ×2 (13:06)
[2016-02-21] MEDS ORDERED: *HR* Heparin 5,000 UNIT/ML VIAL IVP ONE (13:06)
[2016-02-21] MEDS ORDERED: Heparin 25,000 UNIT/500 ML D5W 25,000 UNIT/500 ML MLS IVC SCH (13:15)
--- NOTE | 2016-02-21 15:01 | Electrocardiograph Report ---
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
--- NOTE | 2016-02-21 15:01 | Electrocardiograph Report ---
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
--- NOTE | 2016-02-21 15:45 | Event Note ---
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 Explained potential for rapid worsening s/t colitis and that she is a poor surgical candidate s/t pulmonary disease. Explained that if she ends up needing intubation liberation would be extremly difficult if not imposssible and that CPR in her current state would not provide any real benefit for her goal espoused to me which is to return home and not live in a SNF for the "rest of her life" and that she "does not want to be tortured" Code status changed to reflect the decision made by Ms Jones and her Daughter jointly Code Status now DNRCCA/DNI.
[2016-02-21] MEDS ORDERED: Ringers Solution, Lactated 250 ML IVC PRN ×2 (16:40→17:07)
[2016-02-21] MEDS: Ertapenem 1,000 MG in 0.9 % Sodium Chloride Mini Bag 100 ML IVPB SCH (17:12)
[2016-02-21 17:57] LABS: Mean Platelet Volume 9.5 fL (9.4-12.4); Red Cell Distribution Width 14.4 % (11.5-14.5)
[2016-02-21 17:58] LABS: Hematocrit 35.1 % (35.3-44.9); Hemoglobin 12.1 g/dL (11.5-15.4); INR 1.9; Mean Corpuscular HGB Conc 34.5 g/dL (31.6-35.5); Mean Corpuscular Hemoglobin 30.3 pg (28.0-33.3); Platelet Count 253 K/mcL (140-400); Prothrombin Time 20.7 Seconds (9.4-12.1); Red Blood Count 3.99 M/mcL (3.82-4.97)
[2016-02-21] MEDS ORDERED: *HR* Heparin 5,000 UNIT/ML VIAL SQ SCH (18:00)
[2016-02-21 18:07] LABS: BUN/Creatinine Ratio 42 (6-26); Blood Urea Nitrogen 30 mg/dL (7-20); Calcium 7.5 mg/dL (8.6-10.8); Carbon Dioxide 22 mEq/L (19-29); Chloride 101 mEq/L (98-109); Glucose 184 mg/dL (70-99); Osmolality,Calculated 287 (280-300); Potassium 3.7 mEq/L (3.5-4.5); Sodium 133 mEq/L (136-145); eGFR For African Americans > 60 (> 60); eGFR For Non-African Americans > 60 (> 60)
[2016-02-21] MEDS: *HR* Metoprolol 5 MG/5 ML VIAL IVP SCH (18:40)
[2016-02-21] MEDS ORDERED: Aztreonam 2,000 MG in D5% in Water (Mini-Bag+) 100 ML IVPB SCH ×2 (19:08)
[2016-02-21] MEDS ORDERED: Insulin LISPRO 300 UNITS/3 ML VIAL SQ SCH (21:00)
[2016-02-22] MEDS: Amiodarone Premix 360 MG/200 ML BAG IVC SCH (00:02)
[2016-02-22] MEDS: *HR* Metoprolol 5 MG/5 ML VIAL IVP SCH ×5 (00:38→18:40)
[2016-02-22] MEDS: MetroNIDAZOLE 500 MG/100 ML 500 MG/100 ML BAG IVPB SCH ×3 (00:40→15:11)
[2016-02-22] MEDS: *HR* Morphine 2 MG/ML SYRINGE IVP PRN ×3 (02:58→07:29)
[2016-02-22 03:48] LABS: Hematocrit 38.5 % (35.3-44.9); Hemoglobin 13.2 g/dL (11.5-15.4); Immature Platelets 2.8 % (1.1-6.1); Mean Corpuscular HGB Conc 34.3 g/dL (31.6-35.5); Mean Corpuscular Hemoglobin 30.1 pg (28.0-33.3); Mean Corpuscular Volume 87.7 fL (83.0-100.0); Mean Platelet Volume 9.2 fL (9.4-12.4); Platelet Count 329 K/mcL (140-400); Red Blood Count 4.39 M/mcL (3.82-4.97); Red Cell Distribution Width 14.5 % (11.5-14.5)
[2016-02-22 03:52] LABS: Ionized Calcium 1.04 mmol/L (1.15-1.35)
[2016-02-22 04:01] LABS: Alanine Aminotransferase 12 Units/L (0-55); Albumin/Globulin Ratio 0.7 (1.1-2.2); Alkaline Phosphatase 82 Units/L (38-126); Aspartate Amino Transferase 14 Units/L (5-34); BUN/Creatinine Ratio 40 (6-26); Bilirubin,Direct 0.2 mg/dL (0.0-0.5); Bilirubin,Indirect 0.2 mg/dL (0.0-1.2); Bilirubin,Total 0.4 mg/dL (0.2-1.2); Blood Urea Nitrogen 34 mg/dL (7-20); Calcium 7.6 mg/dL (8.6-10.8); Carbon Dioxide 22 mEq/L (19-29); Chloride 102 mEq/L (98-109); Globulin 2.5 g/dL (2.4-3.5); Glucose 131 mg/dL (70-99); Magnesium 1.9 mg/dL (1.6-2.6); Osmolality,Calculated 285 (280-300); Phosphorous 3.9 mg/dL (2.3-4.7); Potassium 3.9 mEq/L (3.5-4.5); Sodium 133 mEq/L (136-145); Total Protein 4.2 g/dL (6.0-8.3); eGFR For African Americans > 60 (> 60); eGFR For Non-African Americans > 60 (> 60)
[2016-02-22 04:02] LABS: Albumin 1.7 g/dL (3.5-5.0)
[2016-02-22 04:13] LABS: Lymphocytes # 7.3 K/mcL (0.6-4.6); Monocytes # 3.1 K/mcL (0.0-1.3); Neutrophils # 41.5 K/mcL (1.6-8.9); Platelet Estimate Normal (Normal); Reactive Lymphocytes Present (Not Present)
[2016-02-22] MEDS: Ipratropium/Albuterol Neb 3 ML IH SCH ×4 (05:00→23:17)
[2016-02-22] MEDS ORDERED: *HR* FentaNYL (PF) 100 MCG/2 ML VIAL IVP STA ×2 (05:37)
[2016-02-22] MEDS ORDERED: Ketorolac 15 MG/ML VIAL IVP ONE (05:39)
[2016-02-22] MEDS: Cholecalciferol (D-3) 1,000 UNIT TABLET PO SCH (07:31)
[2016-02-22] MEDS: Nystatin SUSP 5 ML UD.LIQ PO SCH ×4 (07:32→20:05)
[2016-02-22] MEDS: Vancomycin Oral Soln 250 MG/2.5 ML UDC PO SCH ×4 (07:32→20:05)
[2016-02-22] MEDS: Pantoprazole 40 MG VIAL IVP SCH (07:32)
[2016-02-22] MEDS: Ertapenem 1,000 MG in 0.9 % Sodium Chloride Mini Bag 100 ML IVPB SCH (07:33)
[2016-02-22] MEDS: Vancomycin 500 MG, Sodium Chloride IRRigation 250 ML RC SCH ×4 (07:48→20:04)
[2016-02-22] MEDS: Aspirin 81 MG TAB.CHEW PO SCH (07:51)
--- NOTE | 2016-02-22 08:48 | Pulmonology Progress Note ---
<Anthony Pierre - Last Filed: 02/22/16 11:30> Date of Encounter: 02/22/16 Time of Encounter: 08:46 Assessment and Plan (1) Colitis presumed infectious Current Visit: Yes Status: Acute White count continues to rise. 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 Patient has not had a bowel movement in the past 48 hours. Will not be able to send a sample for microbiologic analysis. We will continue treatment with Flagyl, by mouth Vanc, rectal vanc. Surgeries been consulted and the patient is an extremely poor surgical candidate. KUB this morning showed a nonspecific diffuse bowel gas pattern, no evidence of free air. Will treat pain with Dilaudid. Patient is mildly hypotensive but does respond to fluid challenges. We will continue with small (250-500cc) boluses as needed for blood pressure support and add levophed if not responsive. (2) COPD (chronic obstructive pulmonary disease) Current Visit: Yes Status: Chronic Patient was being treated for COPD exacerbation however her primary issue is intra-abdominal as discussed above. We will continue with oxygen, bronchodilators, BiPAP as needed. Qualifiers: COPD type: COPD with acute exacerbation Qualified Code(s): J44.1 - Chronic obstructive pulmonary disease with (acute) exacerbation (3) Hx of pulmonary embolus Current Visit: Yes Status: Chronic Hold Xarelto at this time due to concern for colitis with toxic megacolon as discussed above. Hemoglobin is stable. No evidence of active bleeding. We will avoid anticoagulation at this time due to high risk of bleeding with distended colon. (4) Lung mass Current Visit: No Status: Acute Patient refuses further workup at this time. (5) DVT prophylaxis Current Visit: No Status: Acute Heparin 5000 units subcutaneous twice a day. Subjective Principal diagnosis: Abdominal pain Interval history: Patient seen and examined at bedside. Patient still complains of diffuse abdominal pain. She states her breathing is about baseline. She denies any bowel movements since admission to the ICU. Objective PUL Vital signs: Last Vital Signs Temp 98.1 F 02/22/16 07:44 Pulse 109 02/22/16 06:00 Resp 20 02/22/16 06:00 BP 101/67 02/22/16 06:00 Pulse Ox 92 L 02/22/16 06:00 General appearance: appears uncomfortable ENT: oropharynx dry Effort: normal Cardiovascular: irregular rhythm Gastrointestinal: tender (Diffusely) Results - Laboratory Findings CBC and BMP: 02/22/16 03:44 02/22/16 03:44 ABG ABG pH 7.49 pH Units (7.32-7.45) H 02/20/16 12:33 ABG pCO2 39 mmHg (35-45) 02/20/16 12:33 ABG pO2 62 mmHg (85-104) L 02/20/16 12:33 ABG O2 Saturation 93 % (95-98) L 02/20/16 12:33 PT/INR, D-dimer PT 20.7 Seconds (9.4-12.1) H 02/21/16 17:20 Abnormal lab findings: Abnormal lab results WBC 51.9 K/mcL (4.3-11.1) H* 02/22/16 03:44 MPV 9.2 fL (9.4-12.4) L 02/22/16 03:44 Neutrophils # 41.5 K/mcL (1.6-8.9) H 02/22/16 03:44 Lymphocytes # 7.3 K/mcL (0.6-4.6) H 02/22/16 03:44 Monocytes # 3.1 K/mcL (0.0-1.3) H 02/22/16 03:44 Nucleated RBCs/100 WBC 0.1 /100 WBC (0) H 02/20/16 08:17 Reactive Lymphocytes Present (Not Present) A 02/22/16 03:44 Smudge Cells Present (Not Present) A 02/20/16 08:17 Dohle Bodies Present (Not Present) A 02/17/16 08:01 Large Platelets Present (Not Present) A 02/18/16 04:36 Polychromasia 1+ (Not Present) A 02/21/16 05:07 Poikilocytosis 1+ (Not Present) A 02/21/16 05:07 PT 20.7 Seconds (9.4-12.1) H 02/21/16 17:20 ABG pH 7.49 pH Units (7.32-7.45) H 02/20/16 12:33 ABG pO2 62 mmHg (85-104) L 02/20/16 12:33 ABG HCO3 29.7 mEQ/L (21-27) H 02/20/16 12:33 ABG Total CO2 30.9 mEq/L (20-26) H 02/20/16 12:33 ABG O2 Saturation 93 % (95-98) L 02/20/16 12:33 ABG Base Excess 5.9 mEq/L (-2.0 to 3.0) H 02/20/16 12:33 Sodium 133 mEq/L (136-145) L 02/22/16 03:44 BUN 34 mg/dL (7-20) H 02/22/16 03:44 BUN/Creatinine Ratio 40 (6-26) H 02/22/16 03:44 Glucose 131 mg/dL (70-99) H 02/22/16 03:44 POC Glucose 161 (58-89) H 02/21/16 20:32 Calcium 7.6 mg/dL (8.6-10.8) L 02/22/16 03:44 Ionized Calcium 1.04 mmol/L (1.15-1.35) L 02/22/16 03:44 Troponin I 0.11 ng/mL (0-0.03) H* 02/21/16 05:07 B-Natriuretic Peptide 160 pg/mL (0-100) H 02/14/16 21:05 Serum Total Protein 4.2 g/dL (6.0-8.3) L 02/22/16 03:44 Albumin 1.7 g/dL (3.5-5.0) L 02/22/16 03:44 Albumin/Globulin Ratio 0.7 (1.1-2.2) L 02/22/16 03:44 Ur Leukocyte Esterase Small (Negative) H 02/20/16 09:04 Urine Microscopic RBC 3-5 per hpf (0-3) H 02/20/16 09:04 Ur Squamous Epith Cells Many per lpf (None-Few) H 02/20/16 09:04 Ur Culture Indicated? YES (NO) A 02/20/16 09:04 Theophylline 8.2 mcg/mL (10.0-20.0) L 02/20/16 17:45 - Microbiology Findings Microbiology Findings: Microbiology, Last 48 Hours 02/20/16 09:04 Urine Culture - Final Urine,Catheterized No growth. - Clinical Findings Intake & Output: Intake & Output 02/21/16 02/22/16 02/22/16 23:59 07:59 15:59 Intake Total 200 / 200 100 / 100 Output Total 400 / 400 75 / 75 Balance -200 / -200 25 / 25 Weight 58.105 kg Consult Discharge Plan - Plan Referrals: Dane Thomas MD [Primary Care Provider] - <Sriram Barrett - Last Filed: 02/22/16 13:14> Objective PUL Vital signs: Last Vital Signs Temp 98.1 F 02/22/16 07:44 Pulse 109 02/22/16 06:00 Resp 20 02/22/16 06:00 BP 101/67 02/22/16 06:00 Pulse Ox 92 L 02/22/16 06:00 Results - Laboratory Findings CBC and BMP: 02/22/16 03:44 02/22/16 03:44 ABG ABG pH 7.49 pH Units (7.32-7.45) H 02/20/16 12:33 ABG pCO2 39 mmHg (35-45) 02/20/16 12:33 ABG pO2 62 mmHg (85-104) L 02/20/16 12:33 ABG O2 Saturation 93 % (95-98) L 02/20/16 12:33 PT/INR, D-dimer PT 20.7 Seconds (9.4-12.1) H 02/21/16 17:20 Abnormal lab findings: Abnormal lab results WBC 51.9 K/mcL (4.3-11.1) H* 02/22/16 03:44 MPV 9.2 fL (9.4-12.4) L 02/22/16 03:44 Neutrophils # 41.5 K/mcL (1.6-8.9) H 02/22/16 03:44 Lymphocytes # 7.3 K/mcL (0.6-4.6) H 02/22/16 03:44 Monocytes # 3.1 K/mcL (0.0-1.3) H 02/22/16 03:44 Nucleated RBCs/100 WBC 0.1 /100 WBC (0) H 02/20/16 08:17 Reactive Lymphocytes Present (Not Present) A 02/22/16 03:44 Smudge Cells Present (Not Present) A 02/20/16 08:17 Dohle Bodies Present (Not Present) A 02/17/16 08:01 Large Platelets Present (Not Present) A 02/18/16 04:36 Polychromasia 1+ (Not Present) A 02/21/16 05:07 Poikilocytosis 1+ (Not Present) A 02/21/16 05:07 PT 20.7 Seconds (9.4-12.1) H 02/21/16 17:20 ABG pH 7.49 pH Units (7.32-7.45) H 02/20/16 12:33 ABG pO2 62 mmHg (85-104) L 02/20/16 12:33 ABG HCO3 29.7 mEQ/L (21-27) H 02/20/16 12:33 ABG Total CO2 30.9 mEq/L (20-26) H 02/20/16 12:33 ABG O2 Saturation 93 % (95-98) L 02/20/16 12:33 ABG Base Excess 5.9 mEq/L (-2.0 to 3.0) H 02/20/16 12:33 Sodium 133 mEq/L (136-145) L 02/22/16 03:44 BUN 34 mg/dL (7-20) H 02/22/16 03:44 BUN/Creatinine Ratio 40 (6-26) H 02/22/16 03:44 Glucose 131 mg/dL (70-99) H 02/22/16 03:44 POC Glucose 161 (58-89) H 02/21/16 20:32 Calcium 7.6 mg/dL (8.6-10.8) L 02/22/16 03:44 Ionized Calcium 1.04 mmol/L (1.15-1.35) L 02/22/16 03:44 Troponin I 0.11 ng/mL (0-0.03) H* 02/21/16 05:07 B-Natriuretic Peptide 160 pg/mL (0-100) H 02/14/16 21:05 Serum Total Protein 4.2 g/dL (6.0-8.3) L 02/22/16 03:44 Albumin 1.7 g/dL (3.5-5.0) L 02/22/16 03:44 Albumin/Globulin Ratio 0.7 (1.1-2.2) L 02/22/16 03:44 Ur Leukocyte Esterase Small (Negative) H 02/20/16 09:04 Urine Microscopic RBC 3-5 per hpf (0-3) H 02/20/16 09:04 Ur Squamous Epith Cells Many per lpf (None-Few) H 02/20/16 09:04 Ur Culture Indicated? YES (NO) A 02/20/16 09:04 Theophylline 8.2 mcg/mL (10.0-20.0) L 02/20/16 17:45 - Microbiology Findings Microbiology Findings: Microbiology, Last 48 Hours 02/20/16 09:04 Urine Culture - Final Urine,Catheterized No growth. - Clinical Findings Intake & Output: Intake & Output 02/21/16 02/22/16 02/22/16 23:59 07:59 15:59 Intake Total 200 / 200 100 / 100 Output Total 400 / 400 75 / 75 Balance -200 / -200 25 / 25 Weight 58.105 kg - Attending Attestation I examined this patient and my medical decision-making was reviewed with the COMBINATION MACHINE TENDER/PA/Advanced Practice Nurse/Resident Physician. I agree with the documented findings, disposition and treatment plan as described except to the extent set forth below. I spent 40min of Critical Care time with this patient. It involved decision making of high complexity to assess, manipulate, and support vital organ system failure and/or to prevent further life threatening deterioration of the patient' s condition. The time involved in the performance of separately reportable procedures was not counted toward critical care time. Patient seen and examined at bedside Labs, radiology, chart personally reviewed. All lines examined without evidence of infection. Neuro: reamins awake and alert but increasing somnolence with worsening sepsis/ shock. Narcotics for pain control. Pulm: History of advanced COPD but with adequate O2 sats on NC o2. continue bronchodilators holding theophylline Cards: History of HFrEF now with Distributive shock s/t sepsis on two pressors. Stress dose hydrocortisone started. Goal MAP >6 trend lacatate and UOP. She has been given fluid challanges today with out improvement in MAP. Afib with RVR on Amiodarone holding for BP. Holding LTAC for bleeding risk from bowel. FEN-GI: Severe colitis with concern for CDIFF/Toxic megacolon. Surgery consulted poor surgical candidate no intervention planned.. White count worsening with increase in abdominal pain. NPO at this time consider parenteral feedings if clinical course improves Renal: Dmished UOP with rising BUN/Cre c/w sequale of shock/MOSF. Cont to monitor lytes ID: Colitis Cont supportive care with IV flagyl PO vanc and Vanc Enemas. Covering for undifferentiated colitis with Meropenem Heme/Onc: Dvt prophylaxis initiated Endo: glucose monitored starting stress dose hydrocortisone Integ: skin care per ICU protocol CODE: DNRCCA /DNI- Palliative Care consulted. Spoke to Krishna Frye at bedside with patient expressed that overall prognosis extremely poor and demise anticipated. Spent 20minutes comforting patient and answering all questions. At this time she wants to continue with vasopressor support up to arrest or respiratory failure.
[2016-02-22] MEDS: *HR* HYDROmorphone (PF) 1 MG/ML SYRINGE IVP PRN ×3 (08:57→21:12)
[2016-02-22] MEDS ORDERED: Pantoprazole 40 MG in 0.9 % Sodium Chloride 100 ML IVPB SCH (09:00)
[2016-02-22] MEDS ORDERED: *HR* LORazepam 2 MG/ML VIAL IVP PRN (09:11)
[2016-02-22] MEDS ORDERED: 0.9 % Sodium Chloride 1,000 ML ONE (09:24)
[2016-02-22] MEDS ORDERED: Norepinephrine 4 MG in D5% in Water 250 ML IVC SCH (09:45)
[2016-02-22] MEDS: 0.9 % Sodium Chloride 1,000 ML IVC SCH (09:47)
[2016-02-22] MEDS: Meropenem 1,000 MG in 0.9 % Sodium Chloride Mini Bag 100 ML IVPB SCH ×2 (09:55→15:12)
--- NOTE | 2016-02-22 09:57 | General Surgery Progress Note ---
<Talia Khalilfer Tevin - Last Filed: 02/22/16 10:21> Date of Encounter: 02/22/16 Time of Encounter: 09:30 - Assessment and Plan (1) Colitis presumed infectious Current Visit: Yes Status: Acute NPO IV fluids IV antibiotics- Meropenem and Flagyl PO/enemas- vancomycin Unable to send stool for c-diff (patient has not had a BM) On pressor support starting this morning Supportive care Serial abdominal exams Patient is not a surgical candidate due to multiple comorbidities Palliative care consulted (2) Septic shock Current Visit: Yes Status: Acute WBC 36.5>51.9 NPO IV fluids IV antibiotics- Meropenem and Flagyl PO/enemas- vancomycin Unable to send stool for c-diff (patient has not had a BM) On pressor support starting this morning- norepinephrine Supportive care Serial abdominal exams Patient is not a surgical candidate due to multiple comorbidities Palliative care consulted (3) Acute respiratory failure with hypoxia Current Visit: Yes Status: Acute Management per pulmonary/critical care Goals of care discussed- patient is a DNI at this time (4) Dysrhythmia, cardiac Current Visit: Yes Status: Acute Continue Amiodarone gtt Cardiology consulted for recommendations Qualifiers: Arrhythmia type: ventricular tachycardia Qualified Code(s): I47.2 - Ventricular tachycardia (5) Goals of care, counseling/discussion Current Visit: Yes Status: Acute Palliative care consulted Patient is a DNRCC-A and DNI at this time (6) DVT prophylaxis Current Visit: No Status: Acute Continue heparin 5,000 units SQ twice daily for DVT prophylaxis Subjective Patient reports: still having pain, no bowel movement, fever (Tmax 100.3), other (Patient anxious and restless. Hypotensive this morning SBP 50's and not responding to fluid bolus. Placing CVC and starting pressor support. On Amiodarone gtt for recent history of V-tach) Objective Vital Signs - Last 8 Hours Temp Pulse Resp BP Pulse Ox 02/22/16 07:44 98.1 F 02/22/16 06:00 109 20 101/67 92 L 02/22/16 05:00 103 20 86/65 92 L 02/22/16 04:00 96 22 102/66 94 L 02/22/16 03:43 97 02/22/16 03:00 98.1 F 93 16 96/58 97 02/22/16 02:00 88 16 105/73 97 Intake and Output 02/21/16 02/22/16 02/22/16 23:59 07:59 15:59 Intake Total 200 / 200 100 / 100 Output Total 400 / 400 75 / 75 Balance -200 / -200 25 / 25 Intake: IV Fluids 200 / 200 100 / 100 INVanz 1,000 MG In 0.9 % 100 / 100 Sodium Chloride (Mini-Bag +) 100 ML @ 100 mls/hr IVPB DAILY [facility] Rx#: [id number] Flagyl 500 MG/100 ML 500 100 / 100 100 / 100 mg In 100 ml @ 100 mls/hr IVPB Q8HR [facility] Rx#: [id number] Oral 0 / 0 Output: Catheter 400 / 400 75 / 75 Other: Weight 58.105 kg Blood Glucose* 161 - General physical appearance moderate distress, moderate pain, chronically ill - Eyes PERRL - ENT dry mucosa, atraumatic, normocephalic - Neck Neck exam: trachea midline - Respiratory clear to auscultation, other (diminished bibasilar bases) - Cardiovascular Cardiovascular exam: Present: irregular rhythm - Abdomen Abdomen: Present: soft, distended, tender Abdominal Tenderness: diffusely - Genitourinary other (snider catheter to SD ) - Neurologic CN 2-12 grossly intact - Musculoskeletal other (Unable to assess) - Psychiatric oriented to person, other (pleasantly confused) - Labs 02/22/16 03:44 02/22/16 03:44 Diabetes panel 02/21/16 02/22/16 Range/Units 17:20 03:44 Sodium 133 L 133 L (136-145) mEq/L Potassium 3.7 3.9 (3.5-4.5) mEq/L Chloride 101 102 (98-109) mEq/L Carbon Dioxide 22 22 (19-29) mEq/L BUN 30 H 34 H (7-20) mg/dL Creatinine 0.72 0.86 (0.57-1.11) mg/dL Glucose 184 H 131 H (70-99) mg/dL Calcium 7.5 L 7.6 L (8.6-10.8) mg/dL AST 14 (5-34) Units/L ALT 12 (0-55) Units/L Alkaline Phosphatase 82 (38-126) Units/L Albumin 1.7 L (3.5-5.0) g/dL Calcium panel 02/21/16 02/22/16 Range/Units 17:20 03:44 Calcium 7.5 L 7.6 L (8.6-10.8) mg/dL Phosphorus 3.9 (2.3-4.7) mg/dL Albumin 1.7 L (3.5-5.0) g/dL Pituitary panel 02/21/16 02/22/16 Range/Units 17:20 03:44 Sodium 133 L 133 L (136-145) mEq/L Potassium 3.7 3.9 (3.5-4.5) mEq/L Chloride 101 102 (98-109) mEq/L Carbon Dioxide 22 22 (19-29) mEq/L BUN 30 H 34 H (7-20) mg/dL Creatinine 0.72 0.86 (0.57-1.11) mg/dL Glucose 184 H 131 H (70-99) mg/dL Calcium 7.5 L 7.6 L (8.6-10.8) mg/dL Adrenal panel 02/21/16 02/22/16 Range/Units 17:20 03:44 Sodium 133 L 133 L (136-145) mEq/L Potassium 3.7 3.9 (3.5-4.5) mEq/L Chloride 101 102 (98-109) mEq/L Carbon Dioxide 22 22 (19-29) mEq/L BUN 30 H 34 H (7-20) mg/dL Creatinine 0.72 0.86 (0.57-1.11) mg/dL Glucose 184 H 131 H (70-99) mg/dL Calcium 7.5 L 7.6 L (8.6-10.8) mg/dL Total Bilirubin 0.4 (0.2-1.2) mg/dL AST 14 (5-34) Units/L ALT 12 (0-55) Units/L Alkaline Phosphatase 82 (38-126) Units/L Albumin 1.7 L (3.5-5.0) g/dL Consult Discharge Plan - Plan Referrals: Dane Thomas MD [Primary Care Provider] - - Attending Attestation I examined this patient and my medical decision-making was reviewed with the SUPERVISOR SCRAP PREPARATION/PA/Advanced Practice Nurse/Resident Physician. I agree with the documented findings, disposition and treatment plan as described except to the extent set forth below. <Norma Edouard - Last Filed: 02/22/16 15:58> - Assessment and Plan (1) Leukocytosis Current Visit: Yes Status: Acute increasing further today, continue abx - iv flagyl, po/rectal vanco patient is a terrible surgical candidate due to comorbidities and severe COPD recommend palliative consult to help discuss and understand goals of care concerned patient may not survive this admission Qualifiers: Leukocytosis type: unspecified Qualified Code(s): D72.829 - Elevated white blood cell count, unspecified (2) Acute colitis Current Visit: Yes Status: Acute (3) Colitis presumed infectious Current Visit: Yes Status: Acute pt wbc continues to climb palliative consulted pt on pressors - levo and epi grave surgical candidate, wouldnt survive the surgical after care from a respiratory standpoint do not recommend surgery, recommend palliative care (4) Dysrhythmia, cardiac Current Visit: Yes Status: Acute Qualifiers: Arrhythmia type: ventricular tachycardia Qualified Code(s): I47.2 - Ventricular tachycardia (5) COPD (chronic obstructive pulmonary disease) Current Visit: Yes Status: Chronic management per pulmonary CCM Qualifiers: COPD type: COPD with acute exacerbation Qualified Code(s): J44.1 - Chronic obstructive pulmonary disease with (acute) exacerbation (6) Abdominal pain Current Visit: No Status: Acute prn pain control Qualifiers: Abdominal location: generalized Qualified Code(s): R10.84 - Generalized abdominal pain Subjective Narrative: still having pain, not improved Objective Vital Signs - Last 8 Hours Pulse Resp BP Pulse Ox 02/22/16 14:00 99 18 99/55 91 L 02/22/16 10:25 20 94 L 02/22/16 10:00 88 16 94/59 95 02/22/16 09:00 93 20 70/45 94 L 02/22/16 08:00 117 16 116/94 94 L Intake and Output 02/21/16 02/22/16 02/22/16 23:59 07:59 15:59 Intake Total 1200 / 1200 100 / 100 729.0 / 729.0 Output Total 400 / 400 75 / 75 Balance 800 / 800 25 / 25 729.0 / 729.0 Intake: IV Fluids 1200 / 1200 100 / 100 729.0 / 729.0 Amiodarone 360mg/200mL 175 / 175 Drip Premix 360 mg In 200 ml @ 0.5 MG/MIN 16.667 mls/hr IVC CONT [facility] Rx#: [id number] Levophed 4 MG In Dextrose 254.0 / 254.0 5% 250 ML @ 8 MCG/MIN 30 .48 mls/hr IVC CONT [facility] Rx#:[id number] INVanz 1,000 MG In 0.9 % 100 / 100 100 / 100 Sodium Chloride (Mini-Bag +) 100 ML @ 100 mls/hr IVPB DAILY [facility] Rx#: [id number] Merrem 1,000 MG In 0.9 % 100 / 100 Sodium Chloride (Mini-Bag +) 100 ML @ 200 mls/hr IVPB Q8H [facility] Rx#: [id number] Flagyl 500 MG/100 ML 500 100 / 100 100 / 100 100 / 100 mg In 100 ml @ 100 mls/hr IVPB Q8HR [facility] Rx#: [id number] Oral 0 / 0 Output: Catheter 400 / 400 75 / 75 Other: Weight 58.105 kg Blood Glucose* 161 - General physical appearance moderate distress, moderate pain, chronically ill - Eyes PERRL - ENT dry mucosa, atraumatic, normocephalic - Neck Neck exam: trachea midline - Respiratory normal expansion, clear to auscultation - Cardiovascular Cardiovascular exam: Present: irregular rhythm - Abdomen Abdomen: Present: soft, distended, tender. Absent: guarding, rebound Abdominal Tenderness: diffusely - Integumentary no growths, no abnormal pigmentation - Neurologic CN 2-12 grossly intact - Musculoskeletal other - Psychiatric oriented to person - Labs 02/22/16 15:15 02/22/16 15:15 Diabetes panel 02/21/16 02/22/16 02/22/16 Range/Units 17:20 03:44 15:15 Sodium 133 L 133 L 132 L (136-145) mEq/L Potassium 3.7 3.9 4.1 (3.5-4.5) mEq/L Chloride 101 102 103 (98-109) mEq/L Carbon Dioxide 22 22 19 (19-29) mEq/L BUN 30 H 34 H 40 H (7-20) mg/dL Creatinine 0.72 0.86 1.35 H D (0.57-1.11) mg/dL Glucose 184 H 131 H 206 H (70-99) mg/dL Calcium 7.5 L 7.6 L 7.5 L (8.6-10.8) mg/dL AST 14 17 (5-34) Units/L ALT 12 12 (0-55) Units/L Alkaline Phosphatase 82 88 (38-126) Units/L Albumin 1.7 L 1.7 L (3.5-5.0) g/dL Calcium panel 02/21/16 02/22/16 02/22/16 Range/Units 17:20 03:44 15:15 Calcium 7.5 L 7.6 L 7.5 L (8.6-10.8) mg/dL Phosphorus 3.9 (2.3-4.7) mg/dL Albumin 1.7 L 1.7 L (3.5-5.0) g/dL Pituitary panel 02/21/16 02/22/16 02/22/16 Range/Units 17:20 03:44 15:15 Sodium 133 L 133 L 132 L (136-145) mEq/L Potassium 3.7 3.9 4.1 (3.5-4.5) mEq/L Chloride 101 102 103 (98-109) mEq/L Carbon Dioxide 22 22 19 (19-29) mEq/L BUN 30 H 34 H 40 H (7-20) mg/dL Creatinine 0.72 0.86 1.35 H D (0.57-1.11) mg/dL Glucose 184 H 131 H 206 H (70-99) mg/dL Calcium 7.5 L 7.6 L 7.5 L (8.6-10.8) mg/dL Adrenal panel 02/21/16 02/22/16 02/22/16 Range/Units 17:20 03:44 15:15 Sodium 133 L 133 L 132 L (136-145) mEq/L Potassium 3.7 3.9 4.1 (3.5-4.5) mEq/L Chloride 101 102 103 (98-109) mEq/L Carbon Dioxide 22 22 19 (19-29) mEq/L BUN 30 H 34 H 40 H (7-20) mg/dL Creatinine 0.72 0.86 1.35 H D (0.57-1.11) mg/dL Glucose 184 H 131 H 206 H (70-99) mg/dL Calcium 7.5 L 7.6 L 7.5 L (8.6-10.8) mg/dL Total Bilirubin 0.4 0.4 (0.2-1.2) mg/dL AST 14 17 (5-34) Units/L ALT 12 12 (0-55) Units/L Alkaline Phosphatase 82 88 (38-126) Units/L Albumin 1.7 L 1.7 L (3.5-5.0) g/dL
--- NOTE | 2016-02-22 10:10 | Palliative - Consult Note ---
<Vernon Christy - Last Filed: 02/22/16 10:12> Date of Encounter: 02/22/16 Time of Encounter: 10:00 - Assessment and Plan (1) Goals of care, counseling/discussion Current Visit: Yes Status: Acute Assessment and plan: -Increasing size in lung mass. Does not wish to treat lung mass. -Daughter is the POA. Currently remain DNR-CCA-DNI. Continue therapy. -Once discharged, she will go home on hospice. -Unable to get complete history. Patient more confused vs Ativan use. Need to do discussion with daughter on goals of care. (2) Shock Current Visit: Yes Status: Acute Assessment and plan: -Increasing size in lung mass. 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 Central line placed due to low BP. -Continue with recommendations from pulm/ICU Palliative-CN HPI - Data of Consult Patient: new to practice Consult date: 02/22/16 Requesting Physician: Dr. Barrett Primary Care Provider: Dane Thomas MD - Consult Narrative Palliative Care/Comfort Measures: Hospice care (Potential.) Reason for consult: Potential Hospice care once discharged from ICU History of present illness: Ms. 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 Patient currently alert and oriented 3 and able to follow commands. Does have episodes of confusion, could be due to recent adivan use following a femoral line placement for hypotension. Started on pressors. Blood pressure improved to 90/50. Today, per the nurse, she feels worse compared to yesterday, diffused abdominal pain, not well controlled. She only complains of LUQ pain. Denies SOB. No bowl movement. Daughter is POA, gave consent for central line. Patient remains DNR-CCA-DNI. Palliative care on the case and following from a distance. Our services probably needed once the patient leaves the ICU floor for possible hospice service. CC: Adis Gee MD Past Med Surg Social Fam HX - Past Medical History Medical history: arthritis, COPD, coronary artery disease, GERD, GI bleed, hyperlipidemia, hypertension, myocardial infarction, osteoporosis, pulmonary embolus, renal disease, SVT, other Psychiatric history: anxiety, depression - Past Surgical History Surgical History: cataract, other - Social History Smoking Status: Former smoker Smokeless Tobacco Status: No Alcohol use: none Drug use: none - Family History Mother Living Status: Hx Family Cardiac Disorders: (HTN) Hx Family Neurologic Disorders: Yes (alzheimers) Father Living Status: Hx Family Cancer: Yes (brain cancer) Son Adopted: No Living Status: Daughter Adopted: [place]: 62 Family Member Ethnicity: Non- Living Status: Still Living Hx Family Cardiac Disorders: Yes Hx Family Respiratory Disorders: Yes Hx Family Cancer: Yes (melanoma) Hx Family Genitourinary Disorders: No Hx Family Endocrine Disorder: No Hx Family Musculoskeletal Disorders: No Hx Family Neuromuscular Disorders: No Hx Family Neurologic Disorders: No Hx Family HEENT Disorders: No Hx Family Autoimmune Disorders: No Hx Family Reproductive Disorders: No Hx Family Psychosocial Disorders: No Medications and Allergies Amlodipine [Norvasc] 2.5 mg PO DAILY 01/21/15 [History] Ipratropium/Albuterol Neb [Duoneb] 3 ml IH Q6HR PRN 01/21/15 [History] Lisinopril [Zestril] 40 mg PO DAILY 01/21/15 [History] Pravastatin Sodium [Pravachol] 40 mg PO DAILY 01/21/15 [History] Theophylline Anhydrous [Theodur] 300 mg PO DAILY 01/21/15 [History] Isosorbide DInitrate [Isosorbide Dinitrate] 10 mg PO BID 07/06/15 [History] Oxybutynin Chloride [Ditropan Xl] 5 mg PO DAILY 07/28/15 [History] Oxygen 4 l NS CONT 07/28/15 [History] Budesonide/Formoterol 160/4.5 [Symbicort 160/4.5] 2 puff IH BID 11/12/15 [ History] Metoprolol [Lopressor] 25 mg PO BID 11/12/15 [History] Tiotropium [Spiriva] 18 mcg IH DAILY 11/12/15 [History] Cholecalciferol (Vitamin D3) [Vitamin D3] 3,000 unit PO DAILY 12/20/15 [History] Omeprazole [PriLOSEC] 40 mg PO DAILY 12/20/15 [History] Docusate [Colace] 100 mg PO BID #30 capsule 12/24/15 [Rx] Rivaroxaban [Xarelto] 20 mg PO HS 01/10/16 [History] Doxycycline 100 mg PO BID #6 capsule 01/14/16 [Rx] Furosemide [Lasix] 20 mg PO DAILY 02/14/16 [History] HYDROcodone/Acet 5/325 mg [[place] 5-325 mg] 1 tab PO Q6H PRN 02/14/16 [History] Allergies acetaminophen [From Tylenol] Allergy (Unknown, Verified 02/14/16 22:38) See Comments UNABLE TO CONFIRM REACTION- ALL ALLERGIES TAKEN FROM [facility] LAST APPT. Amoxicillin Allergy (Unknown, Verified 02/14/16 22:38) See Comments UNABLE TO CONFIRM REACTION- ALL ALLERGIES TAKEN FROM [facility] LAST APPT. clarithromycin Allergy (Unknown, Verified 02/14/16 22:38) See Comments UNABLE TO CONFIRM REACTION- ALL ALLERGIES TAKEN FROM [facility] LAST APPT. clavulanic acid Allergy (Unknown, Verified 02/14/16 22:38) See Comments UNABLE TO CONFIRM REACTION- ALL ALLERGIES TAKEN FROM [facility] LAST APPT. codeine Allergy (Unknown, Verified 02/14/16 22:38) See Comments UNABLE TO CONFIRM REACTION- ALL ALLERGIES TAKEN FROM [facility] LAST APPT. gabapentin Allergy (Unknown, Verified 02/14/16 22:38) See Comments UNABLE TO CONFIRM REACTION- ALL ALLERGIES TAKEN FROM [facility] LAST APPT. Iodinated Contrast Media - Oral and Allergy (Unknown, Verified 02/14/16 22:38) See Comments UNABLE TO CONFIRM REACTION- ALL ALLERGIES TAKEN FROM [facility] LAST APPT. Penicillins Allergy (Unknown, Verified 02/14/16 22:38) See Comments UNABLE TO CONFIRM REACTION- ALL ALLERGIES TAKEN FROM [facility] LAST APPT. Sulfa (Sulfonamide Antibiotics) Allergy (Unknown, Verified 02/14/16 22:38) See Comments UNABLE TO CONFIRM REACTION- ALL ALLERGIES TAKEN FROM [facility] LAST APPT. Palliative Care-Exam - Constitutional Vitals: Temp Pulse Resp BP Pulse Ox 98.1 F 109 20 101/67 92 L 02/22/16 07:44 02/22/16 06:00 02/22/16 06:00 02/22/16 06:00 02/22/16 06:00 General appearance: Present: cooperative, no acute distress, thin - Head Head Exam: Present: atraumatic, normal inspection - Eye Eye exam: Present: normal appearance - Neck Neck exam: Present: normal inspection. Absent: lymphadenopathy - Respiratory Respiratory exam: Present: decreased breath sounds - Cardiovascular Cardiovascular exam: Present: RRR (on amio) - GI/Abdominal Exam GI/Abdominal exam: Present: diminished bowel sounds (very diminished ), tenderness (LUQ. ). Absent: firm, rigid additional comments: Per rn night nurse, more distended. - Extremities Exam Extremities exam: Present: pedal edema (bilateral ) - Neurological Exam Neurological exam: Present: oriented X3, speech deficit - Expanded Neurological Exam Patient oriented to: Present: person, place, time Internal Medicine - CN: Reslt - Labs CBC & Chem 7: 02/22/16 03:44 02/22/16 03:44 Labs: Short CBC 02/21/16 02/22/16 Range/Units 17:20 03:44 WBC 36.5 H* 51.9 H* (4.3-11.1) K/mcL Hgb 12.1 13.2 (11.5-15.4) g/dL Hct 35.1 L 38.5 (35.3-44.9) % Plt Count 253 329 (140-400) K/mcL Neutrophils # 41.5 H (1.6-8.9) K/mcL BMP 02/21/16 02/22/16 17:20 03:44 Sodium 133 L 133 L Potassium 3.7 3.9 Chloride 101 102 Carbon Dioxide 22 22 BUN 30 H 34 H Creatinine 0.72 0.86 Glucose 184 H 131 H Calcium 7.5 L 7.6 L Liver Function 02/22/16 Range/Units 03:44 Total Bilirubin 0.4 (0.2-1.2) mg/dL Direct Bilirubin 0.2 (0.0-0.5) mg/dL AST 14 (5-34) Units/L ALT 12 (0-55) Units/L Alkaline Phosphatase 82 (38-126) Units/L Albumin 1.7 L (3.5-5.0) g/dL - ABG Interpretation ABG results: ABG ABG pH 7.49 pH Units (7.32-7.45) H 02/20/16 12:33 ABG pCO2 39 mmHg (35-45) 02/20/16 12:33 ABG pO2 62 mmHg (85-104) L 02/20/16 12:33 ABG O2 Saturation 93 % (95-98) L 02/20/16 12:33 PT/INR, D-dimer PT 20.7 Seconds (9.4-12.1) H 02/21/16 17:20 - Impressions Impressions Chest CT 02/20/16 09:47 IMPRESSION: 1. Right lower lobe masslike airspace consolidation with right hilar and subcarinal adenopathy. Similar finding was present on the CT of December 20, 2015. Differential includes rounded atelectasis and neoplasm. It is not known what workup patient has had for this finding. Tissue diagnosis may be required for further evaluation. Right hilar adenopathy and subcarinal adenopathy. If this is shown to be cancer, the adenopathy would be suspicious for metastasis. 2. Moderate to severe centrilobular emphysema. 3. Small bilateral pleural effusions. 4. Multiple lung nodules as listed above, stable since March 2013. Given long-term stability, these are unlikely to be of significance and may represent noncalcified granulomas. 5. New compression deformity of C7 and T11 since December 20, 2015. Subacute compression deformities of T12, L1, and L2. 6. Bony resorption of the left posterior eighth rib. Finding would be suspicious for bone metastasis, especially if right lower lobe masslike consolidation is shown to be cancer. D/ / 02/20/2016 11:14:53 Mikel Rice MD / chauncey Interpreting Provider: Mikel Rice MD X-Ray 02/22/16 07:05 IMPRESSION: Nonspecific bowel gas pattern with stool seen in the left colon and rectum. D/ / Walter Edmonds MD / Walter Edmonds MD Interpreting Provider: Walter Edmonds MD Consult Discharge Plan - Plan Referrals: Dane Thomas MD [Primary Care Provider] - Palliative Quality Code Status: 02/21/16 15:49 DNR [Resuscitation Status: Active] [RES] Routine Comment: Resuscitation Status: [id number] <Earl Sinha - Last Filed: 02/22/16 10:50> Date of Encounter: 02/22/16 Palliative-CN HPI - Data of Consult Requesting Physician: Adis Gee MD Primary Care Provider: Dane Thomas MD - Consult Narrative History of present illness: Ms. Jones is a 80 year old female CC: Adis Gee MD Palliative Care-Exam - Constitutional Vitals: Temp Pulse Resp BP Pulse Ox 98.1 F 109 20 101/67 94 L 02/22/16 07:44 02/22/16 06:00 02/22/16 10:25 02/22/16 06:00 02/22/16 10:25 Internal Medicine - CN: Reslt - Labs CBC & Chem 7: 02/22/16 03:44 02/22/16 03:44 Labs: Short CBC 02/21/16 02/22/16 Range/Units 17:20 03:44 WBC 36.5 H* 51.9 H* (4.3-11.1) K/mcL Hgb 12.1 13.2 (11.5-15.4) g/dL Hct 35.1 L 38.5 (35.3-44.9) % Plt Count 253 329 (140-400) K/mcL Neutrophils # 41.5 H (1.6-8.9) K/mcL BMP 02/21/16 02/22/16 17:20 03:44 Sodium 133 L 133 L Potassium 3.7 3.9 Chloride 101 102 Carbon Dioxide 22 22 BUN 30 H 34 H Creatinine 0.72 0.86 Glucose 184 H 131 H Calcium 7.5 L 7.6 L Liver Function 02/22/16 Range/Units 03:44 Total Bilirubin 0.4 (0.2-1.2) mg/dL Direct Bilirubin 0.2 (0.0-0.5) mg/dL AST 14 (5-34) Units/L ALT 12 (0-55) Units/L Alkaline Phosphatase 82 (38-126) Units/L Albumin 1.7 L (3.5-5.0) g/dL - ABG Interpretation ABG results: ABG ABG pH 7.49 pH Units (7.32-7.45) H 02/20/16 12:33 ABG pCO2 39 mmHg (35-45) 02/20/16 12:33 ABG pO2 62 mmHg (85-104) L 02/20/16 12:33 ABG O2 Saturation 93 % (95-98) L 02/20/16 12:33 PT/INR, D-dimer PT 20.7 Seconds (9.4-12.1) H 02/21/16 17:20 - Impressions Impressions Chest CT 02/20/16 09:47 IMPRESSION: 1. Right lower lobe masslike airspace consolidation with right hilar and subcarinal adenopathy. Similar finding was present on the CT of December 20, 2015. Differential includes rounded atelectasis and neoplasm. It is not known what workup patient has had for this finding. Tissue diagnosis may be required for further evaluation. Right hilar adenopathy and subcarinal adenopathy. If this is shown to be cancer, the adenopathy would be suspicious for metastasis. 2. Moderate to severe centrilobular emphysema. 3. Small bilateral pleural effusions. 4. Multiple lung nodules as listed above, stable since March 2013. Given long-term stability, these are unlikely to be of significance and may represent noncalcified granulomas. 5. New compression deformity of C7 and T11 since December 20, 2015. Subacute compression deformities of T12, L1, and L2. 6. Bony resorption of the left posterior eighth rib. Finding would be suspicious for bone metastasis, especially if right lower lobe masslike consolidation is shown to be cancer. D/ / 02/20/2016 11:14:53 Mikel Rice MD / chauncey Interpreting Provider: Mikel Rice MD X-Ray 02/22/16 07:05 IMPRESSION: Nonspecific bowel gas pattern with stool seen in the left colon and rectum. D/ / Walter Edmonds MD / Walter Edmonds MD Interpreting Provider: Walter Edmonds MD - Attending Attestation I examined this patient and my medical decision-making was reviewed with the WAREHOUSE ASSOCIATE DRIVER/PA/Advanced Practice Nurse/Resident Physician. I agree with the documented findings, disposition and treatment plan as described except to the extent set forth below. Palliative Quality Palliative Quality: Screen for Code Status: Yes, Screen for Goals of Care: Yes, Screen for Pain: Yes, If Pain Regimen Started, Initiate Bowel Regimen: Yes, Screen for Nausea/Vomitting: Yes Code Status: 02/21/16 15:49 DNR [Resuscitation Status: Active] [RES] Routine Comment: Resuscitation Status: [id number]
[2016-02-22] MEDS: Budesonide/Formoterol 160/4.5 MDI IH SCH ×2 (10:25→23:18)
[2016-02-22] MEDS: Insulin LISPRO 300 UNITS/3 ML VIAL SQ SCH ×4 (11:41→20:13)
[2016-02-22] MEDS ORDERED: D10% in Water 500 ML IV PRN (11:52)
[2016-02-22] MEDS: EPINEPHrine 1 MG in D5% in Water 250 ML IVC SCH ×2 (12:06→20:18)
[2016-02-22] MEDS: Norepinephrine 8 MG in D5% in Water 250 ML IVC SCH ×3 (12:43→22:39)
--- NOTE | 2016-02-22 12:48 | Procedure Note ---
Date of procedure: 02/22/16 Pre-op diagnosis: Hypotension Post-op diagnosis: same Procedure: Written consent was obtained patient was obtained from the daughter. The procedure was considered emergent. The left groin was surveyed using ultrasound and deemed to be a suitable target for central line placement. The patient was cleaned and draped in the usual sterile fashion. The skin was anesthetized using 1% lidocaine. Under ultrasound guidance introducer needle was passed into the left femoral vein. Dark red, nonpulsatile blood was returned. The guidewire was fed through the introduction needle without difficulty. The needle was removed and a clay in the skin was made using scalpel. Skin and soft tissues were then dilated. The dilator was removed and the catheter was fed over the guidewire and advanced into the left femoral vein without difficulty. The guidewire was removed intact. All 3 ports were tested and found to draw blood and flushed easily. The catheter was sutured in place. Biopatch and sterile dressing were applied. The patient tolerated the procedure well, there were no immediate complications. Anesthesia: local Surgeon: Anthony Pierre Estimated blood loss (cc): 5 IV fluids (cc): 15 Pathology: none sent Condition: critical Disposition: ICU
[2016-02-22] MEDS ORDERED: Sodium Phosphate 30 MMOL in D5% in Water 100 ML IVPB PRN (12:51)
[2016-02-22] MEDS ORDERED: Magnesium Sulfate 2 GM in D5% in Water 100 ML IVPB PRN (12:51)
[2016-02-22] MEDS ORDERED: Potassium Chloride 40 MEQ/200 ML BAG IVPB PRN (12:51)
[2016-02-22 15:23] LABS: Mean Platelet Volume 9.6 fL (9.4-12.4); Nucleated Red Blood Cells 0.1 /100 WBC (0)
[2016-02-22 15:26] LABS: Immature Platelets 3.3 % (1.1-6.1); Mean Corpuscular HGB Conc 34.2 g/dL (31.6-35.5); Mean Corpuscular Hemoglobin 30.2 pg (28.0-33.3); Mean Corpuscular Volume 88.4 fL (83.0-100.0); Platelet Count 296 K/mcL (140-400); Red Cell Distribution Width 14.8 % (11.5-14.5)
[2016-02-22] MEDS: Hydrocortisone Sodium Succ 100 MG/2 ML VIAL IVP SCH (15:27)
[2016-02-22 15:38] LABS: Albumin/Globulin Ratio 0.7 (1.1-2.2); Bilirubin,Total 0.4 mg/dL (0.2-1.2); Calcium 7.5 mg/dL (8.6-10.8); Globulin 2.5 g/dL (2.4-3.5); Magnesium 1.8 mg/dL (1.6-2.6); Potassium 4.1 mEq/L (3.5-4.5); Total Protein 4.2 g/dL (6.0-8.3)
[2016-02-22 15:44] LABS: Albumin 1.7 g/dL (3.5-5.0)
[2016-02-22 15:56] LABS: Lymphocytes # 2.8 K/mcL (0.6-4.6); Neutrophils # 66.9 K/mcL (1.6-8.9)
[2016-02-22 15:57] LABS: Platelet Estimate Normal (Normal)
[2016-02-22 15:58] LABS: Anisocytosis 1+ (Not Present); Macrocytosis Present (Not Present); Microcytosis Present (Not Present)
[2016-02-22] MEDS ORDERED: *HR* Dextrose 50 % in Water (Syg) 50 ML SYRINGE IVP PRN (16:03)
[2016-02-22] MEDS ORDERED: Dextrose Gel 15 GM PO PRN ×2 (16:03)
[2016-02-22] MEDS ORDERED: D5% in Water 1,000 ML IV PRN (16:03)
[2016-02-22] MEDS: Calcium Gluconate 1,000 MG in D5% in Water 100 ML IVPB PRN (16:42)
[2016-02-22] MEDS ORDERED: Clinimix E 5%-15% SOLUTION 2,000 ML with MVI, adult with vitamin K 10 ML IV SCH (17:00)
[2016-02-22] MEDS: *HR* Heparin 5,000 UNIT/ML VIAL SQ SCH (18:44)
[2016-02-23] MEDS: *HR* Metoprolol 5 MG/5 ML VIAL IVP SCH ×5 (00:08→23:50)
[2016-02-23] MEDS: Meropenem 1,000 MG in 0.9 % Sodium Chloride Mini Bag 100 ML IVPB SCH ×2 (00:27→07:53)
[2016-02-23] MEDS: MetroNIDAZOLE 500 MG/100 ML 500 MG/100 ML BAG IVPB SCH ×4 (00:28→23:50)
[2016-02-23] MEDS: Insulin LISPRO 300 UNITS/3 ML VIAL SQ SCH ×7 (00:28→19:12)
[2016-02-23] MEDS: Hydrocortisone Sodium Succ 100 MG/2 ML VIAL IVP SCH ×4 (00:28→23:50)
[2016-02-23] MEDS: Amiodarone Premix 360 MG/200 ML BAG IVC SCH ×2 (01:11→23:51)
[2016-02-23] MEDS: *HR* HYDROmorphone (PF) 1 MG/ML SYRINGE IVP PRN ×3 (01:12→10:15)
[2016-02-23] MEDS: EPINEPHrine 1 MG in D5% in Water 250 ML IVC SCH ×2 (03:24→11:11)
[2016-02-23] MEDS: Norepinephrine 8 MG in D5% in Water 250 ML IVC SCH ×2 (03:29→08:44)
[2016-02-23 03:47] LABS: Mean Corpuscular HGB Conc 33.9 g/dL (31.6-35.5)
[2016-02-23 03:49] LABS: Hematocrit 37.8 % (35.3-44.9); Hemoglobin 12.8 g/dL (11.5-15.4); Immature Platelets 4.8 % (1.1-6.1); Mean Corpuscular Hemoglobin 30.7 pg (28.0-33.3); Mean Corpuscular Volume 90.6 fL (83.0-100.0); Mean Platelet Volume 10.2 fL (9.4-12.4); Platelet Count 216 K/mcL (140-400); Red Blood Count 4.17 M/mcL (3.82-4.97)
[2016-02-23 03:50] LABS: Ionized Calcium 1.07 mmol/L (1.15-1.35)
[2016-02-23] MEDS: Ipratropium/Albuterol Neb 3 ML IH SCH ×4 (03:57→20:06)
[2016-02-23 04:02] LABS: Albumin/Globulin Ratio 0.6 (1.1-2.2); Bilirubin,Direct 0.2 mg/dL (0.0-0.5); Bilirubin,Indirect 0.1 mg/dL (0.0-1.2); Bilirubin,Total 0.3 mg/dL (0.2-1.2); Calcium 7.6 mg/dL (8.6-10.8); Globulin 2.6 g/dL (2.4-3.5); Magnesium 2.3 mg/dL (1.6-2.6); Phosphorous 5.1 mg/dL (2.3-4.7); Potassium 4.1 mEq/L (3.5-4.5); Total Protein 4.2 g/dL (6.0-8.3)
[2016-02-23 04:03] LABS: Lymphocytes # 1.8 K/mcL (0.6-4.6); Neutrophils # 78.6 K/mcL (1.6-8.9)
[2016-02-23 04:05] LABS: Platelet Estimate Normal (Normal)
[2016-02-23 04:07] LABS: Anisocytosis 1+ (Not Present)
[2016-02-23 04:09] LABS: Albumin 1.6 g/dL (3.5-5.0)
[2016-02-23] MEDS: *HR* Heparin 5,000 UNIT/ML VIAL SQ SCH ×2 (06:18→17:07)
[2016-02-23] MEDS: Calcium Gluconate 1,000 MG in D5% in Water 100 ML IVPB PRN (06:57)
--- NOTE | 2016-02-23 06:57 | Pulmonology Progress Note ---
<Anthony Pierre - Last Filed: 02/23/16 09:21> Date of Encounter: 02/23/16 Time of Encounter: 06:57 Assessment and Plan (1) Colitis presumed infectious Current Visit: Yes Status: Acute White count continues to rise. 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 Patient has not had a bowel movement since admission to the ICU. Will not be able to send a sample for microbiologic analysis until the patient has a bowel movement. We will continue treatment with Flagyl, by mouth Vanc, rectal vanc. Surgery been consulted and the patient is an extremely poor surgical candidate. KUB yesterday morning showed a nonspecific diffuse bowel gas pattern, no evidence of free air, will repeat today. Will treat pain with Dilaudid. Patient became profoundly hypotensive and not responding to fluids yesterday. Central line was placed and the patient was placed on Levophed and epinephrine. Continue these and titrate as necessary. (2) COPD (chronic obstructive pulmonary disease) Current Visit: Yes Status: Chronic Patient was being treated for COPD exacerbation however her primary issue is intra-abdominal as discussed above. We will continue with oxygen, bronchodilators, BiPAP as needed. Qualifiers: COPD type: COPD with acute exacerbation Qualified Code(s): J44.1 - Chronic obstructive pulmonary disease with (acute) exacerbation (3) Hx of pulmonary embolus Current Visit: Yes Status: Chronic Hold Xarelto at this time due to concern for colitis with toxic megacolon as discussed above. Hemoglobin is stable. No evidence of active bleeding. We will avoid anticoagulation at this time due to high risk of bleeding with distended colon. (4) Lung mass Current Visit: No Status: Acute Patient refuses further workup at this time. (5) DVT prophylaxis Current Visit: No Status: Acute Heparin 5000 units subcutaneous twice a day. (6) Goals of care, counseling/discussion Current Visit: Yes Status: Acute Palliative is been consulted and following, we appreciate their assistance. Given that the patient is a poor surgical candidate her prognosis is poor at this time. Patient did verbalize wishes to continue going with maximum medical therapy, we will continue this for now. We will continually keep in contact with the patient and the daughter to reassess goals of care. Pain control and oxygen supplementation as needed for symptomatic relief. Subjective Principal diagnosis: Abdominal pain Interval history: Patient seen and examined at bedside. Patient still complains of diffuse abdominal pain. She states she feels mildly short of breath. She denies any bowel movements since admission to the ICU. At the time my exam she did not complaining of any pain Objective PUL Vital signs: Last Vital Signs Temp 98 F 02/23/16 05:14 Pulse 99 02/23/16 06:00 Resp 10 02/23/16 06:00 BP 104/66 02/23/16 06:00 Pulse Ox 94 L 02/23/16 06:00 General appearance: no acute distress ENT: oropharynx dry Effort: mildly labored Auscultation: bilateral: diminished breath sounds Cardiovascular: irregular rhythm Gastrointestinal: hypoactive bowel sounds, soft, tender (Diffuse), non-distended , other (No rigidity) Extremities: no cyanosis, no edema, no clubbing normal mental status, non-focal exam Results - Laboratory Findings CBC and BMP: 02/23/16 03:35 02/23/16 03:35 ABG ABG pH 7.49 pH Units (7.32-7.45) H 02/20/16 12:33 ABG pCO2 39 mmHg (35-45) 02/20/16 12:33 ABG pO2 62 mmHg (85-104) L 02/20/16 12:33 ABG O2 Saturation 93 % (95-98) L 02/20/16 12:33 PT/INR, D-dimer PT 20.7 Seconds (9.4-12.1) H 02/21/16 17:20 Abnormal lab findings: Abnormal lab results WBC 89.3 K/mcL (4.3-11.1) H* 02/23/16 03:35 RDW 15.0 % (11.5-14.5) H 02/23/16 03:35 Band Neutrophils % 12.0 % (0-4) H 02/23/16 03:35 Metamyelocytes % 8.0 % (0) H 02/23/16 03:35 Myelocytes % 2.0 % (0) H 02/23/16 03:35 Neutrophils # 78.6 K/mcL (1.6-8.9) H 02/23/16 03:35 Monocytes # 3.1 K/mcL (0.0-1.3) H 02/22/16 03:44 Nucleated RBCs/100 WBC 0.1 /100 WBC (0) H 02/22/16 15:15 Reactive Lymphocytes Present (Not Present) A 02/22/16 03:44 Smudge Cells Present (Not Present) A 02/20/16 08:17 Dohle Bodies Present (Not Present) A 02/17/16 08:01 Large Platelets Present (Not Present) A 02/18/16 04:36 Polychromasia 1+ (Not Present) A 02/21/16 05:07 Poikilocytosis 1+ (Not Present) A 02/21/16 05:07 Anisocytosis 1+ (Not Present) A 02/23/16 03:35 Microcytosis Present (Not Present) A 02/22/16 15:15 Macrocytosis Present (Not Present) A 02/22/16 15:15 PT 20.7 Seconds (9.4-12.1) H 02/21/16 17:20 ABG pH 7.49 pH Units (7.32-7.45) H 02/20/16 12:33 ABG pO2 62 mmHg (85-104) L 02/20/16 12:33 ABG HCO3 29.7 mEQ/L (21-27) H 02/20/16 12:33 ABG Total CO2 30.9 mEq/L (20-26) H 02/20/16 12:33 ABG O2 Saturation 93 % (95-98) L 02/20/16 12:33 ABG Base Excess 5.9 mEq/L (-2.0 to 3.0) H 02/20/16 12:33 Sodium 130 mEq/L (136-145) L 02/23/16 03:35 BUN 45 mg/dL (7-20) H 02/23/16 03:35 Creatinine 1.84 mg/dL (0.57-1.11) H 02/23/16 03:35 Est GFR ( Amer) 32 (> 60) L 02/23/16 03:35 Est GFR (Non-Af Amer) 26 (> 60) L 02/23/16 03:35 Glucose 223 mg/dL (70-99) H 02/23/16 03:35 POC Glucose 205 (58-89) H 02/22/16 23:20 Lactic Acid 2.4 mmol/L (0.5-2.2) H 02/23/16 03:35 Calcium 7.6 mg/dL (8.6-10.8) L 02/23/16 03:35 Ionized Calcium 1.07 mmol/L (1.15-1.35) L 02/23/16 03:35 Phosphorus 5.1 mg/dL (2.3-4.7) H 02/23/16 03:35 Troponin I 0.11 ng/mL (0-0.03) H* 02/21/16 05:07 B-Natriuretic Peptide 160 pg/mL (0-100) H 02/14/16 21:05 Serum Total Protein 4.2 g/dL (6.0-8.3) L 02/23/16 03:35 Albumin 1.6 g/dL (3.5-5.0) L 02/23/16 03:35 Albumin/Globulin Ratio 0.6 (1.1-2.2) L 02/23/16 03:35 Ur Leukocyte Esterase Small (Negative) H 02/20/16 09:04 Urine Microscopic RBC 3-5 per hpf (0-3) H 02/20/16 09:04 Ur Squamous Epith Cells Many per lpf (None-Few) H 02/20/16 09:04 Ur Culture Indicated? YES (NO) A 02/20/16 09:04 Theophylline 8.2 mcg/mL (10.0-20.0) L 02/20/16 17:45 - Microbiology Findings Microbiology Findings: Microbiology, Last 48 Hours 02/20/16 09:04 Urine Culture - Final Urine,Catheterized No growth. - Clinical Findings Intake & Output: Intake & Output 02/22/16 02/22/16 02/23/16 15:59 23:59 07:59 Intake Total 869.0 / 869.0 1332 / 1332 458 / 458 Output Total 50 / 50 25 / 25 Balance 869.0 / 869.0 1282 / 1282 433 / 433 Weight 65.136 kg Consult Discharge Plan - Plan Referrals: Dane Thomas MD [Primary Care Provider] - <Sriram Barrett - Last Filed: 02/23/16 12:27> Objective PUL Vital signs: Last Vital Signs Temp 97.8 F 02/23/16 07:40 Pulse 104 02/23/16 08:00 Resp 19 02/23/16 08:00 BP 101/62 02/23/16 08:00 Pulse Ox 94 L 02/23/16 08:00 Results - Laboratory Findings CBC and BMP: 02/23/16 03:35 02/23/16 03:35 ABG ABG pH 7.49 pH Units (7.32-7.45) H 02/20/16 12:33 ABG pCO2 39 mmHg (35-45) 02/20/16 12:33 ABG pO2 62 mmHg (85-104) L 02/20/16 12:33 ABG O2 Saturation 93 % (95-98) L 02/20/16 12:33 PT/INR, D-dimer PT 20.7 Seconds (9.4-12.1) H 02/21/16 17:20 Abnormal lab findings: Abnormal lab results WBC 89.3 K/mcL (4.3-11.1) H* 02/23/16 03:35 RDW 15.0 % (11.5-14.5) H 02/23/16 03:35 Band Neutrophils % 12.0 % (0-4) H 02/23/16 03:35 Metamyelocytes % 8.0 % (0) H 02/23/16 03:35 Myelocytes % 2.0 % (0) H 02/23/16 03:35 Neutrophils # 78.6 K/mcL (1.6-8.9) H 02/23/16 03:35 Monocytes # 3.1 K/mcL (0.0-1.3) H 02/22/16 03:44 Nucleated RBCs/100 WBC 0.1 /100 WBC (0) H 02/22/16 15:15 Reactive Lymphocytes Present (Not Present) A 02/22/16 03:44 Smudge Cells Present (Not Present) A 02/20/16 08:17 Dohle Bodies Present (Not Present) A 02/17/16 08:01 Large Platelets Present (Not Present) A 02/18/16 04:36 Polychromasia 1+ (Not Present) A 02/21/16 05:07 Poikilocytosis 1+ (Not Present) A 02/21/16 05:07 Anisocytosis 1+ (Not Present) A 02/23/16 03:35 Microcytosis Present (Not Present) A 02/22/16 15:15 Macrocytosis Present (Not Present) A 02/22/16 15:15 PT 20.7 Seconds (9.4-12.1) H 02/21/16 17:20 ABG pH 7.49 pH Units (7.32-7.45) H 02/20/16 12:33 ABG pO2 62 mmHg (85-104) L 02/20/16 12:33 ABG HCO3 29.7 mEQ/L (21-27) H 02/20/16 12:33 ABG Total CO2 30.9 mEq/L (20-26) H 02/20/16 12:33 ABG O2 Saturation 93 % (95-98) L 02/20/16 12:33 ABG Base Excess 5.9 mEq/L (-2.0 to 3.0) H 02/20/16 12:33 Sodium 130 mEq/L (136-145) L 02/23/16 03:35 BUN 45 mg/dL (7-20) H 02/23/16 03:35 Creatinine 1.84 mg/dL (0.57-1.11) H 02/23/16 03:35 Est GFR ( Amer) 32 (> 60) L 02/23/16 03:35 Est GFR (Non-Af Amer) 26 (> 60) L 02/23/16 03:35 Glucose 223 mg/dL (70-99) H 02/23/16 03:35 POC Glucose 186 (58-89) H 02/23/16 08:22 Lactic Acid 2.4 mmol/L (0.5-2.2) H 02/23/16 03:35 Calcium 7.6 mg/dL (8.6-10.8) L 02/23/16 03:35 Ionized Calcium 1.07 mmol/L (1.15-1.35) L 02/23/16 03:35 Phosphorus 5.1 mg/dL (2.3-4.7) H 02/23/16 03:35 Troponin I 0.11 ng/mL (0-0.03) H* 02/21/16 05:07 B-Natriuretic Peptide 160 pg/mL (0-100) H 02/14/16 21:05 Serum Total Protein 4.2 g/dL (6.0-8.3) L 02/23/16 03:35 Albumin 1.6 g/dL (3.5-5.0) L 02/23/16 03:35 Albumin/Globulin Ratio 0.6 (1.1-2.2) L 02/23/16 03:35 Ur Leukocyte Esterase Small (Negative) H 02/20/16 09:04 Urine Microscopic RBC 3-5 per hpf (0-3) H 02/20/16 09:04 Ur Squamous Epith Cells Many per lpf (None-Few) H 02/20/16 09:04 Ur Culture Indicated? YES (NO) A 02/20/16 09:04 Theophylline 8.2 mcg/mL (10.0-20.0) L 02/20/16 17:45 - Microbiology Findings Microbiology Findings: Microbiology, Last 48 Hours 02/20/16 09:04 Urine Culture - Final Urine,Catheterized No growth. - Clinical Findings Intake & Output: Intake & Output 02/22/16 02/23/16 02/23/16 23:59 07:59 15:59 Intake Total 1332 / 1332 716 / 716 Output Total 50 / 50 75 / 75 Balance 1282 / 1282 641 / 641 Weight 65.136 kg - Attending Attestation I examined this patient and my medical decision-making was reviewed with the IMAGING SCIENCE PROFESSOR/PA/Advanced Practice Nurse/Resident Physician. I agree with the documented findings, disposition and treatment plan as described except to the extent set forth below. I spent 35min of Critical Care time with this patient. It involved decision making of high complexity to assess, manipulate, and support vital organ system failure and/or to prevent further life threatening deterioration of the patient' s condition. The time involved in the performance of separately reportable procedures was not counted toward critical care time. Patient seen and examined at bedside Labs, radiology, chart personally reviewed. All lines examined without evidence of infection. Neuro: remains awake and alert but increasing somnolence with worsening sepsis/ shock. cont Narcotics for pain control. Pulm: History of advanced COPD but with adequate O2 sats on NC o2. continue bronchodilators holding theophylline. Increased Air hunger Venti mask/NIPPV prn. adequate Oxygenation Cards: History of HFrEF now with Distributive shock s/t sepsis on Levo/Epi. Stress dose hydrocortisone started. Goal MAP >60 trend lacatate and UOP. She has been given fluid challanges today with out improvement in MAP. Afib with RVR on Amiodarone holding for BP. Holding LTAC for bleeding risk from bowel. FEN-GI: Severe colitis with concern for CDIFF/Toxic megacolon. Surgery consulted poor surgical candidate no intervention planned.. White count worsening with increase in abdominal pain. TPN started. Renal: Dmished UOP with rising BUN/Cre c/w sequale of shock/MOSF. Cont to monitor lytes ID: Colitis Cont supportive care with IV flagyl PO vanc and Vanc Enemas. Stop Meropenem Heme/Onc: Dvt prophylaxis initiated Endo: glucose monitored starting stress dose hydrocortisone Integ: skin care per ICU protocol CODE: DNRCCA /DNI Updated Daughter. Patient continues to deteriorate and has not responded to medical mngt and is not a surgical candidate. Worseing pain anxiety and labored breathing plan to transition to comfort measures.
[2016-02-23] MEDS: Nystatin SUSP 5 ML UD.LIQ PO SCH ×4 (07:51→19:09)
[2016-02-23] MEDS: Vancomycin Oral Soln 250 MG/2.5 ML UDC PO SCH ×5 (07:51→19:10)
[2016-02-23] MEDS: Aspirin 81 MG TAB.CHEW PO SCH (07:52)
[2016-02-23] MEDS: Cholecalciferol (D-3) 1,000 UNIT TABLET PO SCH (07:52)
[2016-02-23] MEDS: Pantoprazole 40 MG VIAL IVP SCH (07:53)
[2016-02-23] MEDS ORDERED: Ringers Solution, Lactated 500 ML IVC ONE (08:21)
--- NOTE | 2016-02-23 08:36 | General Surgery Progress Note ---
Addendum entered and electronically signed by Traci Garrett DO 10:24: Surgery will sign off at this time, thank you for involving us in this patient s care, please feel free to contact us with any questions. Original Note: <Traci Garrett - Last Filed: 02/23/16 08:59> Date of Encounter: 02/23/16 Time of Encounter: 08:34 - Assessment and Plan (1) Septic shock Current Visit: Yes Status: Acute WBC 36.5>51.9>89.3 Cr 0.72>1.35>1.84 lactic acid 1.8>2.4>2.4 TPN IV fluids IV antibiotics- Meropenem and Flagyl PO/enemas- vancomycin On pressor support Supportive care Patient is not a surgical candidate due to multiple comorbidities Palliative care on board (2) Colitis presumed infectious Current Visit: Yes Status: Acute NPO IV fluids IV antibiotics- Meropenem and Flagyl PO/enemas- vancomycin Unable to send stool for c-diff (patient has not had a BM) Serial abdominal exams Patient is not a surgical candidate due to multiple comorbidities (3) Acute respiratory failure with hypoxia Current Visit: Yes Status: Acute Management per pulmonary/critical care Goals of care discussed- patient is a DNI at this time (4) Dysrhythmia, cardiac Current Visit: Yes Status: Acute Amiodarone gtt Cardiology on board Qualifiers: Arrhythmia type: ventricular tachycardia Qualified Code(s): I47.2 - Ventricular tachycardia (5) DVT prophylaxis Current Visit: No Status: Acute heparin SQ Subjective Patient reports: still having pain, no bowel movement, afebrile, other (anxious , requiring pressor support and fluid boluses to stay normotensive, stating she "needs air" this morning) Objective Vital Signs - Last 8 Hours Temp Pulse Resp BP Pulse Ox 02/23/16 06:00 99 10 104/66 94 L 02/23/16 05:14 98 F 02/23/16 05:00 104 10 119/53 93 L 02/23/16 04:00 98 F 99 12 102/63 96 02/23/16 03:57 14 96 02/23/16 03:00 96 12 108/50 97 02/23/16 02:00 97 12 113/46 97 02/23/16 01:00 98 14 108/53 94 L Intake and Output 02/22/16 02/23/16 02/23/16 23:59 07:59 15:59 Intake Total 1332 / 1332 458 / 458 Output Total 50 / 50 25 / 25 Balance 1282 / 1282 433 / 433 Intake: IV Fluids 1332 / 1332 458 / 458 EPINEPHrine 1 MG In 502 / 502 Dextrose 5% 250 ML @ 2 MCG/MIN 30.12 mls/hr IVC CONT [facility] Rx#:[id number] Levophed 8 MG In Dextrose 516 / 516 258 / 258 5% 250 ML @ 8 MCG/MIN 15 .48 mls/hr IVC CONT L[facility] Rx#:[id number] Calcium Gluconate 1,000 110 / 110 MG In Dextrose 5% 100 ML @ 50 mls/hr IVPB Q6HR PRN Rx#:[id number] Magnesium Sulfate 2 GM In 104 / 104 Dextrose 5% 100 ML @ 50 mls/hr IVPB Q6H PRN Rx#: [id number] Merrem 1,000 MG In 0.9 % 100 / 100 Sodium Chloride (Mini-Bag +) 100 ML @ 200 mls/hr IVPB Q8H LILIAN Rx#: [id number] Flagyl 500 MG/100 ML 500 100 / 100 100 / 100 mg In 100 ml @ 100 mls/hr IVPB Q8HR L[facility] Rx#: [id number] Output: Catheter 50 / 50 25 / 25 Other: Weight 65.136 kg Blood Glucose* 242 205 Patient Weight 02/23/16 23:59 Weight 65.136 kg - General physical appearance moderate distress, moderate pain, chronically ill - Eyes PERRL - ENT dry mucosa, atraumatic, normocephalic - Neck Neck exam: trachea midline - Respiratory other (dimished breath sounds) - Cardiovascular Cardiovascular exam: Present: irregular rhythm - Abdomen Abdomen: Present: soft, distended, tender - Genitourinary other (snider catheter to SD (125 cc urine previous 24 hrs)) - Neurologic CN 2-12 grossly intact - Psychiatric oriented to person, other (confused) - Additional Exam extremities puffy due to excess fluid - Labs 02/23/16 03:35 02/23/16 03:35 Diabetes panel 02/22/16 02/23/16 Range/Units 15:15 03:35 Sodium 132 L 130 L (136-145) mEq/L Potassium 4.1 4.1 (3.5-4.5) mEq/L Chloride 103 99 (98-109) mEq/L Carbon Dioxide 19 20 (19-29) mEq/L BUN 40 H 45 H (7-20) mg/dL Creatinine 1.35 H D 1.84 H (0.57-1.11) mg/dL Glucose 206 H 223 H (70-99) mg/dL Calcium 7.5 L 7.6 L (8.6-10.8) mg/dL AST 17 27 (5-34) Units/L ALT 12 14 (0-55) Units/L Alkaline Phosphatase 88 93 (38-126) Units/L Albumin 1.7 L 1.6 L (3.5-5.0) g/dL Triglycerides 48 (< 150) mg/dL Calcium panel 02/22/16 02/23/16 Range/Units 15:15 03:35 Calcium 7.5 L 7.6 L (8.6-10.8) mg/dL Phosphorus 5.1 H (2.3-4.7) mg/dL Albumin 1.7 L 1.6 L (3.5-5.0) g/dL Pituitary panel 02/22/16 02/23/16 Range/Units 15:15 03:35 Sodium 132 L 130 L (136-145) mEq/L Potassium 4.1 4.1 (3.5-4.5) mEq/L Chloride 103 99 (98-109) mEq/L Carbon Dioxide 19 20 (19-29) mEq/L BUN 40 H 45 H (7-20) mg/dL Creatinine 1.35 H D 1.84 H (0.57-1.11) mg/dL Glucose 206 H 223 H (70-99) mg/dL Calcium 7.5 L 7.6 L (8.6-10.8) mg/dL Adrenal panel 02/22/16 02/23/16 Range/Units 15:15 03:35 Sodium 132 L 130 L (136-145) mEq/L Potassium 4.1 4.1 (3.5-4.5) mEq/L Chloride 103 99 (98-109) mEq/L Carbon Dioxide 19 20 (19-29) mEq/L BUN 40 H 45 H (7-20) mg/dL Creatinine 1.35 H D 1.84 H (0.57-1.11) mg/dL Glucose 206 H 223 H (70-99) mg/dL Calcium 7.5 L 7.6 L (8.6-10.8) mg/dL Total Bilirubin 0.4 0.3 (0.2-1.2) mg/dL AST 17 27 (5-34) Units/L ALT 12 14 (0-55) Units/L Alkaline Phosphatase 88 93 (38-126) Units/L Albumin 1.7 L 1.6 L (3.5-5.0) g/dL Consult Discharge Plan - Plan Referrals: Dane Thomas MD [Primary Care Provider] - <Norma Edouard - Last Filed: 02/23/16 18:16> Time of Encounter: 17:00 - Assessment and Plan (1) Leukocytosis Current Visit: Yes Status: Acute wbc continues to climb due to likely Cdiff colitis. Pt is not a surgical candidate and would likely not survive the after care from a respiratory standpoint. My understanding is that [facility] has talked with family and they may begin withdrawal of care today Qualifiers: Leukocytosis type: unspecified Qualified Code(s): D72.829 - Elevated white blood cell count, unspecified (2) Colitis presumed infectious Current Visit: Yes Status: Acute unfortunately patient is not a surgical candidate for her presumed Cdiff colitis , likely toxic megacolon. Conservative measures are failing. [facility] and palliative have been talking with family regarding grave prognosis. Will sign off as surgery isnt an option. Please call again if needed. (3) Dysrhythmia, cardiac Current Visit: Yes Status: Acute Qualifiers: Arrhythmia type: ventricular tachycardia Qualified Code(s): I47.2 - Ventricular tachycardia (4) COPD (chronic obstructive pulmonary disease) Current Visit: Yes Status: Chronic management per [facility] medicine Qualifiers: COPD type: COPD with acute exacerbation Qualified Code(s): J44.1 - Chronic obstructive pulmonary disease with (acute) exacerbation (5) Abdominal pain Current Visit: No Status: Acute prn pain Qualifiers: Abdominal location: generalized Qualified Code(s): R10.84 - Generalized abdominal pain Objective Vital Signs - Last 8 Hours Pulse Resp BP Pulse Ox 02/23/16 16:00 101 22 100/62 94 L 02/23/16 15:00 106 24 91/35 91 L 02/23/16 14:00 104 20 93/63 96 02/23/16 13:00 105 15 97/60 96 02/23/16 12:00 106 16 101/62 94 L 02/23/16 11:01 26 100 02/23/16 11:00 108 25 102/50 97 Intake and Output 02/23/16 02/23/16 02/23/16 07:59 15:59 23:59 Intake Total 716 / 716 1641 / 1641 1315 / 1315 Output Total 75 / 75 Balance 641 / 641 1641 / 1641 1315 / 1315 Intake: IV Fluids 716 / 716 1561 / 1561 1315 / 1315 Clinimix E 5%-15% 997 / 997 SOLUTION 2,000 ML @ 40 mls/hr IV .Q24H LILIAN with M.v.i. Adult 10 ml Rx#: [id number] EPINEPHrine 1 MG In 251 / 251 95 / 95 Dextrose 5% 250 ML @ 2 MCG/MIN 30.12 mls/hr IVC CONT LILIAN Rx#:[id number] Levophed 8 MG In Dextrose 516 / 516 223 / 223 5% 250 ML @ 8 MCG/MIN 15 .48 mls/hr IVC CONT [facility] Rx#:[id number] Lactated Ringers 500 ML @ 500 / 500 1000 mls/hr IVC .Q30M ONE Rx#:[id number] ALBURX 5% 25 gm In 500 ml 500 / 500 @ 120 mls/hr IVPB ONCE ONE Rx#:[id number] Calcium Gluconate 1,000 110 / 110 MG In Dextrose 5% 100 ML @ 50 mls/hr IVPB Q6HR PRN Rx#:[id number] Merrem 1,000 MG In 0.9 % 100 / 100 100 / 100 Sodium Chloride (Mini-Bag +) 100 ML @ 200 mls/hr IVPB Q8H L[facility] Rx#: [id number] Flagyl 500 MG/100 ML 500 100 / 100 100 / 100 mg In 100 ml @ 100 mls/hr IVPB Q8HR L[facility] Rx#: [id number] Oral 80 / 80 Output: Catheter 75 / 75 Other: Weight 65.136 kg Blood Glucose* 186 Patient Weight 02/23/16 23:59 Weight 65.136 kg - Labs 01/11/17 03:35 02/23/16 03:35 Diabetes panel 02/23/16 Range/Units 03:35 Sodium 130 L (136-145) mEq/L Potassium 4.1 (3.5-4.5) mEq/L Chloride 99 (98-109) mEq/L Carbon Dioxide 20 (19-29) mEq/L BUN 45 H (7-20) mg/dL Creatinine 1.84 H (0.57-1.11) mg/dL Glucose 223 H (70-99) mg/dL Calcium 7.6 L (8.6-10.8) mg/dL AST 27 (5-34) Units/L ALT 14 (0-55) Units/L Alkaline Phosphatase 93 (38-126) Units/L Albumin 1.6 L (3.5-5.0) g/dL Triglycerides 48 (< 150) mg/dL Calcium panel 02/23/16 Range/Units 03:35 Calcium 7.6 L (8.6-10.8) mg/dL Phosphorus 5.1 H (2.3-4.7) mg/dL Albumin 1.6 L (3.5-5.0) g/dL Pituitary panel 02/23/16 Range/Units 03:35 Sodium 130 L (136-145) mEq/L Potassium 4.1 (3.5-4.5) mEq/L Chloride 99 (98-109) mEq/L Carbon Dioxide 20 (19-29) mEq/L BUN 45 H (7-20) mg/dL Creatinine 1.84 H (0.57-1.11) mg/dL Glucose 223 H (70-99) mg/dL Calcium 7.6 L (8.6-10.8) mg/dL Adrenal panel 02/23/16 Range/Units 03:35 Sodium 130 L (136-145) mEq/L Potassium 4.1 (3.5-4.5) mEq/L Chloride 99 (98-109) mEq/L Carbon Dioxide 20 (19-29) mEq/L BUN 45 H (7-20) mg/dL Creatinine 1.84 H (0.57-1.11) mg/dL Glucose 223 H (70-99) mg/dL Calcium 7.6 L (8.6-10.8) mg/dL Total Bilirubin 0.3 (0.2-1.2) mg/dL AST 27 (5-34) Units/L ALT 14 (0-55) Units/L Alkaline Phosphatase 93 (38-126) Units/L Albumin 1.6 L (3.5-5.0) g/dL - Attending Attestation I examined this patient and my medical decision-making was reviewed with the ANODE MACHINE OPERATOR/PA/Advanced Practice Nurse/Resident Physician. I agree with the documented findings, disposition and treatment plan as described except to the extent set forth below.
[2016-02-23] MEDS: Vancomycin 500 MG, Sodium Chloride IRRigation 250 ML RC SCH ×4 (08:50→19:10)
--- NOTE | 2016-02-23 08:50 | Palliative Progress Note ---
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 Does not wish to treat. Increasing WBC count despite abx therapy. -Daughter is the POA. Not present. Currently remain DNR-CCA-DNI. Continue therapy. -Was told Pulm/cc is going to have discussion with daughter considering code status switched to DNR-CC. Please contact us if you need assistance. - Time Spent With Patient Total time spent is greater than 50% in coordination of care (as documented) at patient's floor/unit and/or counseling patient: 25 - 35 minutes - Subjective Interval history: 80 y/o F states that she feels more short of breath today compared to yesterday. She denies any pain, fever, N/V, is alert and oriented x3 and able to follow commands. He has no complaints or concerns at this time. Daughter is not present. Code status remains DNR-CCA-DNI - Constitutional Vitals: Abnormal lab results WBC 89.3 K/mcL (4.3-11.1) H* 02/23/16 03:35 RDW 15.0 % (11.5-14.5) H 02/23/16 03:35 Band Neutrophils % 12.0 % (0-4) H 02/23/16 03:35 Metamyelocytes % 8.0 % (0) H 02/23/16 03:35 Myelocytes % 2.0 % (0) H 02/23/16 03:35 Neutrophils # 78.6 K/mcL (1.6-8.9) H 02/23/16 03:35 Monocytes # 3.1 K/mcL (0.0-1.3) H 02/22/16 03:44 Nucleated RBCs/100 WBC 0.1 /100 WBC (0) H 02/22/16 15:15 Reactive Lymphocytes Present (Not Present) A 02/22/16 03:44 Smudge Cells Present (Not Present) A 02/20/16 08:17 Dohle Bodies Present (Not Present) A 02/17/16 08:01 Large Platelets Present (Not Present) A 02/18/16 04:36 Polychromasia 1+ (Not Present) A 02/21/16 05:07 Poikilocytosis 1+ (Not Present) A 02/21/16 05:07 Anisocytosis 1+ (Not Present) A 02/23/16 03:35 Microcytosis Present (Not Present) A 02/22/16 15:15 Macrocytosis Present (Not Present) A 02/22/16 15:15 PT 20.7 Seconds (9.4-12.1) H 02/21/16 17:20 ABG pH 7.49 pH Units (7.32-7.45) H 02/20/16 12:33 ABG pO2 62 mmHg (85-104) L 02/20/16 12:33 ABG HCO3 29.7 mEQ/L (21-27) H 02/20/16 12:33 ABG Total CO2 30.9 mEq/L (20-26) H 02/20/16 12:33 ABG O2 Saturation 93 % (95-98) L 02/20/16 12:33 ABG Base Excess 5.9 mEq/L (-2.0 to 3.0) H 02/20/16 12:33 Sodium 130 mEq/L (136-145) L 02/23/16 03:35 BUN 45 mg/dL (7-20) H 02/23/16 03:35 Creatinine 1.84 mg/dL (0.57-1.11) H 02/23/16 03:35 Est GFR ( Amer) 32 (> 60) L 02/23/16 03:35 Est GFR (Non-Af Amer) 26 (> 60) L 02/23/16 03:35 Glucose 223 mg/dL (70-99) H 02/23/16 03:35 POC Glucose 186 (58-89) H 02/23/16 08:22 Lactic Acid 2.4 mmol/L (0.5-2.2) H 02/23/16 03:35 Calcium 7.6 mg/dL (8.6-10.8) L 02/23/16 03:35 Ionized Calcium 1.07 mmol/L (1.15-1.35) L 02/23/16 03:35 Phosphorus 5.1 mg/dL (2.3-4.7) H 02/23/16 03:35 Troponin I 0.11 ng/mL (0-0.03) H* 02/21/16 05:07 B-Natriuretic Peptide 160 pg/mL (0-100) H 02/14/16 21:05 Serum Total Protein 4.2 g/dL (6.0-8.3) L 02/23/16 03:35 Albumin 1.6 g/dL (3.5-5.0) L 02/23/16 03:35 Albumin/Globulin Ratio 0.6 (1.1-2.2) L 02/23/16 03:35 Ur Leukocyte Esterase Small (Negative) H 02/20/16 09:04 Urine Microscopic RBC 3-5 per hpf (0-3) H 02/20/16 09:04 Ur Squamous Epith Cells Many per lpf (None-Few) H 02/20/16 09:04 Ur Culture Indicated? YES (NO) A 02/20/16 09:04 Theophylline 8.2 mcg/mL (10.0-20.0) L 02/20/16 17:45 - Head Head exam: Present: atraumatic, normal inspection - Respiratory Respiratory exam: Present: wheezes. Absent: chest wall tenderness Additional comments: nasal cannula 4L, 02 stat 100%. Able to make complete sentences. - Cardiovascular Cardiovascular exam: Present: RRR - GI/Abdominal GI/Abdominal exam: Present: hypoactive bowel sounds, soft. Absent: tenderness - Additional findings Additional findings: bilateral pitting edema of the lower legs. Palliative Quality Palliative Quality: Screen for Code Status: Yes, Screen for Goals of Care: Yes, Screen for Pain: Yes, If Pain Regimen Started, Initiate Bowel Regimen: Yes, Screen for Nausea/Vomitting: Yes Code Status: 02/21/16 15:49 DNR [Resuscitation Status: Active] [RES] Routine Comment: Resuscitation Status: [id number] - Labs CBC & Chem 7: 02/23/16 03:35 02/23/16 03:35 Labs: Laboratory Results - last 24 hr 02/22/16 02/22/16 02/22/16 15:15 15:15 15:15 WBC 69.7 H* RBC 4.30 Hgb 13.0 Hct 38.0 MCV 88.4 MCH 30.2 MCHC 34.2 RDW 14.8 H Plt Count 296 MPV 9.6 Seg Neutrophils % 92.0 Band Neutrophils % 4.0 Lymphocytes % 4.0 Metamyelocytes % Myelocytes % Neutrophils # 66.9 H Lymphocytes # 2.8 Nucleated RBCs/100 WBC 0.1 H Platelet Estimate Normal Immature Plt Fraction 3.3 Anisocytosis 1+ A Microcytosis Present A Macrocytosis Present A Sodium 132 L Potassium 4.1 Chloride 103 Carbon Dioxide 19 BUN 40 H Creatinine 1.35 H D Est GFR ( Amer) 46 L Est GFR (Non-Af Amer) 38 L BUN/Creatinine Ratio 30 H Glucose 206 H POC Glucose Calculated Osmolality 290 Lactic Acid 2.4 H Calcium 7.5 L Ionized Calcium Phosphorus Magnesium 1.8 Total Bilirubin 0.4 Direct Bilirubin Indirect Bilirubin AST 17 ALT 12 Alkaline Phosphatase 88 Serum Total Protein 4.2 L Albumin 1.7 L Globulin 2.5 Albumin/Globulin Ratio 0.7 L Triglycerides 02/22/16 02/22/16 02/22/16 15:41 20:12 23:20 WBC RBC Hgb Hct MCV MCH MCHC RDW Plt Count MPV Seg Neutrophils % Band Neutrophils % Lymphocytes % Metamyelocytes % Myelocytes % Neutrophils # Lymphocytes # Nucleated RBCs/100 WBC Platelet Estimate Immature Plt Fraction Anisocytosis Microcytosis Macrocytosis Sodium Potassium Chloride Carbon Dioxide BUN Creatinine Est GFR ( Amer) Est GFR (Non-Af Amer) BUN/Creatinine Ratio Glucose POC Glucose 173 H 242 H 205 H Calculated Osmolality Lactic Acid Calcium Ionized Calcium Phosphorus Magnesium Total Bilirubin Direct Bilirubin Indirect Bilirubin AST ALT Alkaline Phosphatase Serum Total Protein Albumin Globulin Albumin/Globulin Ratio Triglycerides 02/23/16 02/23/16 02/23/16 03:35 03:35 03:35 WBC 89.3 H* RBC 4.17 Hgb 12.8 Hct 37.8 MCV 90.6 MCH 30.7 MCHC 33.9 RDW 15.0 H Plt Count 216 MPV 10.2 Seg Neutrophils % 76.0 Band Neutrophils % 12.0 H Lymphocytes % 2.0 Metamyelocytes % 8.0 H Myelocytes % 2.0 H Neutrophils # 78.6 H Lymphocytes # 1.8 Nucleated RBCs/100 WBC Platelet Estimate Normal Immature Plt Fraction 4.8 Anisocytosis 1+ A Microcytosis Macrocytosis Sodium 130 L Potassium 4.1 Chloride 99 Carbon Dioxide 20 BUN 45 H Creatinine 1.84 H Est GFR ( Amer) 32 L Est GFR (Non-Af Amer) 26 L BUN/Creatinine Ratio 24 Glucose 223 H POC Glucose Calculated Osmolality 288 Lactic Acid 2.4 H Calcium 7.6 L Ionized Calcium 1.07 L Phosphorus 5.1 H Magnesium 2.3 Total Bilirubin 0.3 Direct Bilirubin 0.2 Indirect Bilirubin 0.1 AST 27 ALT 14 Alkaline Phosphatase 93 Serum Total Protein 4.2 L Albumin 1.6 L Globulin 2.6 Albumin/Globulin Ratio 0.6 L Triglycerides 48 02/23/16 08:22 WBC RBC Hgb Hct MCV MCH MCHC RDW Plt Count MPV Seg Neutrophils % Band Neutrophils % Lymphocytes % Metamyelocytes % Myelocytes % Neutrophils # Lymphocytes # Nucleated RBCs/100 WBC Platelet Estimate Immature Plt Fraction Anisocytosis Microcytosis Macrocytosis Sodium Potassium Chloride Carbon Dioxide BUN Creatinine Est GFR ( Amer) Est GFR (Non-Af Amer) BUN/Creatinine Ratio Glucose POC Glucose 186 H Calculated Osmolality Lactic Acid Calcium Ionized Calcium Phosphorus Magnesium Total Bilirubin Direct Bilirubin Indirect Bilirubin AST ALT Alkaline Phosphatase Serum Total Protein Albumin Globulin Albumin/Globulin Ratio Triglycerides - ABG Interpretation ABG results: ABG ABG pH 7.49 pH Units (7.32-7.45) H 02/20/16 12:33 ABG pCO2 39 mmHg (35-45) 02/20/16 12:33 ABG pO2 62 mmHg (85-104) L 02/20/16 12:33 ABG O2 Saturation 93 % (95-98) L 02/20/16 12:33 PT/INR, D-dimer PT 20.7 Seconds (9.4-12.1) H 02/21/16 17:20 Consult Discharge Plan - Plan Referrals: Dane Thomas MD [Primary Care Provider] - <Earl Sinha - Last Filed: 02/23/16 09:17> - Time Spent With Patient Total time spent is greater than 50% in coordination of care (as documented) at patient's floor/unit and/or counseling patient: - Constitutional Vitals: Abnormal lab results WBC 89.3 K/mcL (4.3-11.1) H* 02/23/16 03:35 RDW 15.0 % (11.5-14.5) H 02/23/16 03:35 Band Neutrophils % 12.0 % (0-4) H 02/23/16 03:35 Metamyelocytes % 8.0 % (0) H 02/23/16 03:35 Myelocytes % 2.0 % (0) H 02/23/16 03:35 Neutrophils # 78.6 K/mcL (1.6-8.9) H 02/23/16 03:35 Monocytes # 3.1 K/mcL (0.0-1.3) H 02/22/16 03:44 Nucleated RBCs/100 WBC 0.1 /100 WBC (0) H 02/22/16 15:15 Reactive Lymphocytes Present (Not Present) A 02/22/16 03:44 Smudge Cells Present (Not Present) A 02/20/16 08:17 Dohle Bodies Present (Not Present) A 02/17/16 08:01 Large Platelets Present (Not Present) A 02/18/16 04:36 Polychromasia 1+ (Not Present) A 02/21/16 05:07 Poikilocytosis 1+ (Not Present) A 02/21/16 05:07 Anisocytosis 1+ (Not Present) A 02/23/16 03:35 Microcytosis Present (Not Present) A 02/22/16 15:15 Macrocytosis Present (Not Present) A 02/22/16 15:15 PT 20.7 Seconds (9.4-12.1) H 02/21/16 17:20 ABG pH 7.49 pH Units (7.32-7.45) H 02/20/16 12:33 ABG pO2 62 mmHg (85-104) L 02/20/16 12:33 ABG HCO3 29.7 mEQ/L (21-27) H 02/20/16 12:33 ABG Total CO2 30.9 mEq/L (20-26) H 02/20/16 12:33 ABG O2 Saturation 93 % (95-98) L 02/20/16 12:33 ABG Base Excess 5.9 mEq/L (-2.0 to 3.0) H 02/20/16 12:33 Sodium 130 mEq/L (136-145) L 02/23/16 03:35 BUN 45 mg/dL (7-20) H 02/23/16 03:35 Creatinine 1.84 mg/dL (0.57-1.11) H 02/23/16 03:35 Est GFR ( Amer) 32 (> 60) L 02/23/16 03:35 Est GFR (Non-Af Amer) 26 (> 60) L 02/23/16 03:35 Glucose 223 mg/dL (70-99) H 02/23/16 03:35 POC Glucose 186 (58-89) H 02/23/16 08:22 Lactic Acid 2.4 mmol/L (0.5-2.2) H 02/23/16 03:35 Calcium 7.6 mg/dL (8.6-10.8) L 02/23/16 03:35 Ionized Calcium 1.07 mmol/L (1.15-1.35) L 02/23/16 03:35 Phosphorus 5.1 mg/dL (2.3-4.7) H 02/23/16 03:35 Troponin I 0.11 ng/mL (0-0.03) H* 02/21/16 05:07 B-Natriuretic Peptide 160 pg/mL (0-100) H 02/14/16 21:05 Serum Total Protein 4.2 g/dL (6.0-8.3) L 02/23/16 03:35 Albumin 1.6 g/dL (3.5-5.0) L 02/23/16 03:35 Albumin/Globulin Ratio 0.6 (1.1-2.2) L 02/23/16 03:35 Ur Leukocyte Esterase Small (Negative) H 02/20/16 09:04 Urine Microscopic RBC 3-5 per hpf (0-3) H 02/20/16 09:04 Ur Squamous Epith Cells Many per lpf (None-Few) H 02/20/16 09:04 Ur Culture Indicated? YES (NO) A 02/20/16 09:04 Theophylline 8.2 mcg/mL (10.0-20.0) L 02/20/16 17:45 - Attending Attestation I examined this patient and my medical decision-making was reviewed with the ADULT AND PEDIATRIC NEUROLOGIST/PA/Advanced Practice Nurse/Resident Physician. I agree with the documented findings, disposition and treatment plan as described except to the extent set forth below. Palliative Quality Code Status: 02/21/16 15:49 DNR [Resuscitation Status: Active] [RES] Routine Comment: Resuscitation Status: [id number] - Labs CBC & Chem 7: 02/23/16 03:35 02/23/16 03:35 Labs: Laboratory Results - last 24 hr 02/22/16 02/22/16 02/22/16 15:15 15:15 15:15 WBC 69.7 H* RBC 4.30 Hgb 13.0 Hct 38.0 MCV 88.4 MCH 30.2 MCHC 34.2 RDW 14.8 H Plt Count 296 MPV 9.6 Seg Neutrophils % 92.0 Band Neutrophils % 4.0 Lymphocytes % 4.0 Metamyelocytes % Myelocytes % Neutrophils # 66.9 H Lymphocytes # 2.8 Nucleated RBCs/100 WBC 0.1 H Platelet Estimate Normal Immature Plt Fraction 3.3 Anisocytosis 1+ A Microcytosis Present A Macrocytosis Present A Sodium 132 L Potassium 4.1 Chloride 103 Carbon Dioxide 19 BUN 40 H Creatinine 1.35 H D Est GFR ( Amer) 46 L Est GFR (Non-Af Amer) 38 L BUN/Creatinine Ratio 30 H Glucose 206 H POC Glucose Calculated Osmolality 290 Lactic Acid 2.4 H Calcium 7.5 L Ionized Calcium Phosphorus Magnesium 1.8 Total Bilirubin 0.4 Direct Bilirubin Indirect Bilirubin AST 17 ALT 12 Alkaline Phosphatase 88 Serum Total Protein 4.2 L Albumin 1.7 L Globulin 2.5 Albumin/Globulin Ratio 0.7 L Triglycerides 02/22/16 02/22/16 02/22/16 15:41 20:12 23:20 WBC RBC Hgb Hct MCV MCH MCHC RDW Plt Count MPV Seg Neutrophils % Band Neutrophils % Lymphocytes % Metamyelocytes % Myelocytes % Neutrophils # Lymphocytes # Nucleated RBCs/100 WBC Platelet Estimate Immature Plt Fraction Anisocytosis Microcytosis Macrocytosis Sodium Potassium Chloride Carbon Dioxide BUN Creatinine Est GFR ( Amer) Est GFR (Non-Af Amer) BUN/Creatinine Ratio Glucose POC Glucose 173 H 242 H 205 H Calculated Osmolality Lactic Acid Calcium Ionized Calcium Phosphorus Magnesium Total Bilirubin Direct Bilirubin Indirect Bilirubin AST ALT Alkaline Phosphatase Serum Total Protein Albumin Globulin Albumin/Globulin Ratio Triglycerides 02/23/16 02/23/16 02/23/16 03:35 03:35 03:35 WBC 89.3 H* RBC 4.17 Hgb 12.8 Hct 37.8 MCV 90.6 MCH 30.7 MCHC 33.9 RDW 15.0 H Plt Count 216 MPV 10.2 Seg Neutrophils % 76.0 Band Neutrophils % 12.0 H Lymphocytes % 2.0 Metamyelocytes % 8.0 H Myelocytes % 2.0 H Neutrophils # 78.6 H Lymphocytes # 1.8 Nucleated RBCs/100 WBC Platelet Estimate Normal Immature Plt Fraction 4.8 Anisocytosis 1+ A Microcytosis Macrocytosis Sodium 130 L Potassium 4.1 Chloride 99 Carbon Dioxide 20 BUN 45 H Creatinine 1.84 H Est GFR ( Amer) 32 L Est GFR (Non-Af Amer) 26 L BUN/Creatinine Ratio 24 Glucose 223 H POC Glucose Calculated Osmolality 288 Lactic Acid 2.4 H Calcium 7.6 L Ionized Calcium 1.07 L Phosphorus 5.1 H Magnesium 2.3 Total Bilirubin 0.3 Direct Bilirubin 0.2 Indirect Bilirubin 0.1 AST 27 ALT 14 Alkaline Phosphatase 93 Serum Total Protein 4.2 L Albumin 1.6 L Globulin 2.6 Albumin/Globulin Ratio 0.6 L Triglycerides 48 02/23/16 08:22 WBC RBC Hgb Hct MCV MCH MCHC RDW Plt Count MPV Seg Neutrophils % Band Neutrophils % Lymphocytes % Metamyelocytes % Myelocytes % Neutrophils # Lymphocytes # Nucleated RBCs/100 WBC Platelet Estimate Immature Plt Fraction Anisocytosis Microcytosis Macrocytosis Sodium Potassium Chloride Carbon Dioxide BUN Creatinine Est GFR ( Amer) Est GFR (Non-Af Amer) BUN/Creatinine Ratio Glucose POC Glucose 186 H Calculated Osmolality Lactic Acid Calcium Ionized Calcium Phosphorus Magnesium Total Bilirubin Direct Bilirubin Indirect Bilirubin AST ALT Alkaline Phosphatase Serum Total Protein Albumin Globulin Albumin/Globulin Ratio Triglycerides - ABG Interpretation ABG results: ABG ABG pH 7.49 pH Units (7.32-7.45) H 02/20/16 12:33 ABG pCO2 39 mmHg (35-45) 02/20/16 12:33 ABG pO2 62 mmHg (85-104) L 02/20/16 12:33 ABG O2 Saturation 93 % (95-98) L 02/20/16 12:33 PT/INR, D-dimer PT 20.7 Seconds (9.4-12.1) H 02/21/16 17:20
[2016-02-23] MEDS ORDERED: Albumin Human 5% 25 GM/500 ML VIAL IVPB ONE (10:45)
[2016-02-23] MEDS: Budesonide/Formoterol 160/4.5 MDI IH SCH ×2 (11:00→20:06)
[2016-02-23] MEDS: *HR* HYDROmorphone 2 MG/ML SYRINGE IVP PRN ×4 (11:37→23:38)
--- NOTE | 2016-02-23 12:14 | Event Note ---
Date of Encounter: 02/23/16 Time of Encounter: 12:12 met with patient and daughter, my self and Dr Barrett described to family how bad the situation is and that there is no more therapy available for her. deciision made to withdraw care after her brother gets here later today. No escalaton of care in the meantime and code status change to dnr cc
[2016-02-23] MEDS ORDERED: Vancomycin Oral Soln 250 MG/2.5 ML UDC PO SCH (13:00)
--- NOTE | 2016-02-23 16:18 | Electrocardiograph Report ---
[facility] Test Date: 2016-02-20 Pat Name: ROSEANNA ANGULO Department: 109 Room: 09 Gender: F Investigative Assistant: : [id number] Requested By: Adis Gee Order Number: [id number] Reading MD: Bobbi Riley Measurements Intervals [place] Rate: 158 P: 69 MA: 144 QRS: -62 QRSD: 144 T: 107 QT: 398 QTc: 486 Interpretive Statements SINUS RHYTHM IS INITIALLY PRESENT CONSIDER SVT WITH UNDERLYING LBBB Electronically Signed On 02-23-16 16:17:34 EST by Bobbi Riley
[2016-02-23] MEDS ORDERED: *HR* LORazepam 2 MG/ML VIAL IVP PRN (16:57)
[2016-02-23] MEDS ORDERED: Meropenem 1,000 MG in 0.9 % Sodium Chloride Mini Bag 100 ML IVPB SCH (20:00)
[2016-02-24] MEDS: Ipratropium/Albuterol Neb 3 ML IH SCH ×2 (03:46→09:53)
[2016-02-24] MEDS: *HR* HYDROmorphone 2 MG/ML SYRINGE IVP PRN ×4 (03:50→10:33)
[2016-02-24] MEDS: Insulin LISPRO 300 UNITS/3 ML VIAL SQ SCH (03:51)
[2016-02-24] MEDS: *HR* Heparin 5,000 UNIT/ML VIAL SQ SCH (05:37)
[2016-02-24] MEDS: *HR* Metoprolol 5 MG/5 ML VIAL IVP SCH (05:37)
--- NOTE | 2016-02-24 09:12 | Palliative Progress Note ---
<JaelynVernon - Last Filed: 02/24/16 09:28> Time of Encounter: 09:12 - Assessment and plan (1) Goals of care, counseling/discussion Status: Acute Assessment and plan: -Daughter is the POA. Not present. Recent status change to DNR-cc yesterday. Will be transferred off the ICU floor and onto the floor -Patient deteriorating. Currently contacting [place] to get her transferred home with hospice. -Patient neither admits more denies pain or discomfort. Consider switching to morphine to help with Shortness of breath and add Ativan for anxiousness. - Time Spent With Patient Total time spent is greater than 50% in coordination of care (as documented) at patient's floor/unit and/or counseling patient: - Subjective Interval history: Patient code status changed to DNR-CC last night. Patient is deteriorating. Does not answer questions or follow commands. Appears anxious in room. Still on the oxygen mask. Appears short of breath. No family present. - Constitutional Vitals: Abnormal lab results WBC 89.3 K/mcL (4.3-11.1) H* 02/23/16 03:35 RDW 15.0 % (11.5-14.5) H 02/23/16 03:35 Band Neutrophils % 12.0 % (0-4) H 02/23/16 03:35 Metamyelocytes % 8.0 % (0) H 02/23/16 03:35 Myelocytes % 2.0 % (0) H 02/23/16 03:35 Neutrophils # 78.6 K/mcL (1.6-8.9) H 02/23/16 03:35 Monocytes # 3.1 K/mcL (0.0-1.3) H 02/22/16 03:44 Nucleated RBCs/100 WBC 0.1 /100 WBC (0) H 02/22/16 15:15 Reactive Lymphocytes Present (Not Present) A 02/22/16 03:44 Smudge Cells Present (Not Present) A 02/20/16 08:17 Dohle Bodies Present (Not Present) A 02/17/16 08:01 Large Platelets Present (Not Present) A 02/18/16 04:36 Polychromasia 1+ (Not Present) A 02/21/16 05:07 Poikilocytosis 1+ (Not Present) A 02/21/16 05:07 Anisocytosis 1+ (Not Present) A 02/23/16 03:35 Microcytosis Present (Not Present) A 02/22/16 15:15 Macrocytosis Present (Not Present) A 02/22/16 15:15 PT 20.7 Seconds (9.4-12.1) H 02/21/16 17:20 ABG pH 7.49 pH Units (7.32-7.45) H 02/20/16 12:33 ABG pO2 62 mmHg (85-104) L 02/20/16 12:33 ABG HCO3 29.7 mEQ/L (21-27) H 02/20/16 12:33 ABG Total CO2 30.9 mEq/L (20-26) H 02/20/16 12:33 ABG O2 Saturation 93 % (95-98) L 02/20/16 12:33 ABG Base Excess 5.9 mEq/L (-2.0 to 3.0) H 02/20/16 12:33 Sodium 130 mEq/L (136-145) L 02/23/16 03:35 BUN 45 mg/dL (7-20) H 02/23/16 03:35 Creatinine 1.84 mg/dL (0.57-1.11) H 02/23/16 03:35 Est GFR ( Amer) 32 (> 60) L 02/23/16 03:35 Est GFR (Non-Af Amer) 26 (> 60) L 02/23/16 03:35 Glucose 223 mg/dL (70-99) H 02/23/16 03:35 POC Glucose 154 (58-89) H 02/23/16 11:44 Lactic Acid 2.4 mmol/L (0.5-2.2) H 02/23/16 03:35 Calcium 7.6 mg/dL (8.6-10.8) L 02/23/16 03:35 Ionized Calcium 1.07 mmol/L (1.15-1.35) L 02/23/16 03:35 Phosphorus 5.1 mg/dL (2.3-4.7) H 02/23/16 03:35 Troponin I 0.11 ng/mL (0-0.03) H* 02/21/16 05:07 B-Natriuretic Peptide 160 pg/mL (0-100) H 02/14/16 21:05 Serum Total Protein 4.2 g/dL (6.0-8.3) L 02/23/16 03:35 Albumin 1.6 g/dL (3.5-5.0) L 02/23/16 03:35 Albumin/Globulin Ratio 0.6 (1.1-2.2) L 02/23/16 03:35 Ur Leukocyte Esterase Small (Negative) H 02/20/16 09:04 Urine Microscopic RBC 3-5 per hpf (0-3) H 02/20/16 09:04 Ur Squamous Epith Cells Many per lpf (None-Few) H 02/20/16 09:04 Ur Culture Indicated? YES (NO) A 02/20/16 09:04 Theophylline 8.2 mcg/mL (10.0-20.0) L 02/20/16 17:45 General appearance: Present: mild distress - Respiratory Respiratory exam: Present: decreased breath sounds - Cardiovascular Additional comments: muffled heart sounds. - Additional findings Additional findings: -Appears anxious -Distal extremities cool and increased edema Palliative Quality Palliative Quality: Screen for Code Status: Yes, Screen for Goals of Care: Yes, Screen for Pain: Yes, If Pain Regimen Started, Initiate Bowel Regimen: Yes, Screen for Nausea/Vomitting: Yes Code Status: 02/21/16 15:49 DNR [Resuscitation Status: Active] [RES] Routine Comment: Resuscitation Status: [id number] DNR [Resuscitation Status: Active] [RES] Routine Comment: Resuscitation Status: DNR-Comfort Care - Labs CBC & Chem 7: 02/23/16 03:35 02/23/16 03:35 Labs: Laboratory Results - last 24 hr 02/23/16 11:44 POC Glucose 154 H - ABG Interpretation ABG results: ABG ABG pH 7.49 pH Units (7.32-7.45) H 02/20/16 12:33 ABG pCO2 39 mmHg (35-45) 02/20/16 12:33 ABG pO2 62 mmHg (85-104) L 02/20/16 12:33 ABG O2 Saturation 93 % (95-98) L 02/20/16 12:33 PT/INR, D-dimer PT 20.7 Seconds (9.4-12.1) H 02/21/16 17:20 Consult Discharge Plan - Plan Referrals: Dane Thomas MD [Primary Care Provider] - <Earl Sinha - Last Filed: 02/25/16 08:16> Date of Encounter: 02/25/16 - Time Spent With Patient Total time spent is greater than 50% in coordination of care (as documented) at patient's floor/unit and/or counseling patient: - Constitutional Vitals: Abnormal lab results WBC 89.3 K/mcL (4.3-11.1) H* 02/23/16 03:35 RDW 15.0 % (11.5-14.5) H 02/23/16 03:35 Band Neutrophils % 12.0 % (0-4) H 02/23/16 03:35 Metamyelocytes % 8.0 % (0) H 02/23/16 03:35 Myelocytes % 2.0 % (0) H 02/23/16 03:35 Neutrophils # 78.6 K/mcL (1.6-8.9) H 02/23/16 03:35 Monocytes # 3.1 K/mcL (0.0-1.3) H 02/22/16 03:44 Nucleated RBCs/100 WBC 0.1 /100 WBC (0) H 02/22/16 15:15 Reactive Lymphocytes Present (Not Present) A 02/22/16 03:44 Smudge Cells Present (Not Present) A 02/20/16 08:17 Dohle Bodies Present (Not Present) A 02/17/16 08:01 Large Platelets Present (Not Present) A 02/18/16 04:36 Polychromasia 1+ (Not Present) A 02/21/16 05:07 Poikilocytosis 1+ (Not Present) A 02/21/16 05:07 Anisocytosis 1+ (Not Present) A 02/23/16 03:35 Microcytosis Present (Not Present) A 02/22/16 15:15 Macrocytosis Present (Not Present) A 02/22/16 15:15 PT 20.7 Seconds (9.4-12.1) H 02/21/16 17:20 ABG pH 7.49 pH Units (7.32-7.45) H 02/20/16 12:33 ABG pO2 62 mmHg (85-104) L 02/20/16 12:33 ABG HCO3 29.7 mEQ/L (21-27) H 02/20/16 12:33 ABG Total CO2 30.9 mEq/L (20-26) H 02/20/16 12:33 ABG O2 Saturation 93 % (95-98) L 02/20/16 12:33 ABG Base Excess 5.9 mEq/L (-2.0 to 3.0) H 02/20/16 12:33 Sodium 130 mEq/L (136-145) L 02/23/16 03:35 BUN 45 mg/dL (7-20) H 02/23/16 03:35 Creatinine 1.84 mg/dL (0.57-1.11) H 02/23/16 03:35 Est GFR ( Amer) 32 (> 60) L 02/23/16 03:35 Est GFR (Non-Af Amer) 26 (> 60) L 02/23/16 03:35 Glucose 223 mg/dL (70-99) H 02/23/16 03:35 POC Glucose 154 (58-89) H 02/23/16 11:44 Lactic Acid 2.4 mmol/L (0.5-2.2) H 02/23/16 03:35 Calcium 7.6 mg/dL (8.6-10.8) L 02/23/16 03:35 Ionized Calcium 1.07 mmol/L (1.15-1.35) L 02/23/16 03:35 Phosphorus 5.1 mg/dL (2.3-4.7) H 02/23/16 03:35 Troponin I 0.11 ng/mL (0-0.03) H* 02/21/16 05:07 B-Natriuretic Peptide 160 pg/mL (0-100) H 02/14/16 21:05 Serum Total Protein 4.2 g/dL (6.0-8.3) L 02/23/16 03:35 Albumin 1.6 g/dL (3.5-5.0) L 02/23/16 03:35 Albumin/Globulin Ratio 0.6 (1.1-2.2) L 02/23/16 03:35 Ur Leukocyte Esterase Small (Negative) H 02/20/16 09:04 Urine Microscopic RBC 3-5 per hpf (0-3) H 02/20/16 09:04 Ur Squamous Epith Cells Many per lpf (None-Few) H 02/20/16 09:04 Ur Culture Indicated? YES (NO) A 02/20/16 09:04 Theophylline 8.2 mcg/mL (10.0-20.0) L 02/20/16 17:45 - Attending Attestation I examined this patient and my medical decision-making was reviewed with the [employer]/PA/Advanced Practice Nurse/Resident Physician. I agree with the documented findings, disposition and treatment plan as described except to the extent set forth below. Palliative Quality Code Status: 02/21/16 15:49 DNR [Resuscitation Status: Active] [RES] Routine Comment: Resuscitation Status: [id number] DNR [Resuscitation Status: Active] [RES] Routine Comment: Resuscitation Status: DNR-Comfort Care - Labs CBC & Chem 7: 02/23/16 03:35 02/23/16 03:35 - ABG Interpretation ABG results: ABG ABG pH 7.49 pH Units (7.32-7.45) H 02/20/16 12:33 ABG pCO2 39 mmHg (35-45) 02/20/16 12:33 ABG pO2 62 mmHg (85-104) L 02/20/16 12:33 ABG O2 Saturation 93 % (95-98) L 02/20/16 12:33 PT/INR, D-dimer PT 20.7 Seconds (9.4-12.1) H 02/21/16 17:20
[2016-02-24] MEDS: Budesonide/Formoterol 160/4.5 MDI IH SCH (09:53)
[2016-02-24] MEDS ORDERED: *HR* HYDROmorphone 2 MG/ML SYRINGE IVP PRN (10:51)
[2016-02-24] MEDS ORDERED: *HR* LORazepam 2 MG/ML VIAL IVP PRN (10:51)
[2016-02-24 13:46] VITALS: BP 57/46
--- NOTE | 2016-02-24 15:04 | Death Note ---
Pronouncement Note - Date and Time of Date of : 02/24/16 Time of : 14:55 - PCOD Preliminary cause of : Sepsis - Summary Additional details: called to bedside to pronounce , comfromed ocurrred at 1455 hrs 02/23 - Additional Data Confirmation of : no pulse, no respirations, no heart sounds, pupils fixed and dilated Family: at bedside Attending/PCP notified?: Yes (Dr Pineda ) Attending physician: Adis Gee MD Was code activated?: No Autopsy requested?: No currency examiner notified?: No Organ bank notified?: Yes Advance directives: Yes
--- NOTE | 2016-02-24 15:27 | Pulmonology Progress Note ---
<Anthony Pierre - Last Filed: 02/24/16 15:24> Date of Encounter: 02/24/16 Time of Encounter: 07:00 Assessment and Plan (1) Colitis presumed infectious Current Visit: Yes Status: Acute Patient family decided to institute comfort measures. Lab draws, antibiotics, clinical monitoring been stopped. Comfort measures of been instituted. Transfer to the floor with palliative service following. (2) COPD (chronic obstructive pulmonary disease) Current Visit: Yes Status: Chronic Comfort measures Qualifiers: COPD type: COPD with acute exacerbation Qualified Code(s): J44.1 - Chronic obstructive pulmonary disease with (acute) exacerbation (3) Hx of pulmonary embolus Current Visit: Yes Status: Chronic Instituting comfort measures per patient and family wishes (4) Lung mass Current Visit: No Status: Acute Patient refuses further workup at this time. (5) DVT prophylaxis Current Visit: No Status: Acute Heparin 5000 units subcutaneous twice a day. (6) Goals of care, counseling/discussion Current Visit: Yes Status: Acute Patient has been transitioned to comfort measures. We will institute Dilaudid and Ativan for comfort. Patient will be transitioned to the floor. Subjective Principal diagnosis: Abdominal pain Interval history: Patient seen and examined at bedside. At the time I examined the patient would look at me when I spoke to her but did not respond verbally. Objective PUL Vital signs: Last Vital Signs Temp 97.3 F L 02/24/16 13:45 Pulse 99 02/24/16 13:45 Resp 18 02/24/16 13:45 BP 57/46 02/24/16 13:45 Pulse Ox 99 02/24/16 10:00 General appearance: lethargic ENT: oropharynx dry Auscultation: bilateral: diminished breath sounds (Severe) Cardiovascular: irregular rhythm Gastrointestinal: absent bowel sounds, soft, tender, non-distended Extremities: no cyanosis, no edema, no clubbing unable to assess due to mental status Results - Laboratory Findings CBC and BMP: 02/23/16 03:35 02/23/16 03:35 ABG ABG pH 7.49 pH Units (7.32-7.45) H 02/20/16 12:33 ABG pCO2 39 mmHg (35-45) 02/20/16 12:33 ABG pO2 62 mmHg (85-104) L 02/20/16 12:33 ABG O2 Saturation 93 % (95-98) L 02/20/16 12:33 PT/INR, D-dimer PT 20.7 Seconds (9.4-12.1) H 02/21/16 17:20 Abnormal lab findings: Abnormal lab results WBC 89.3 K/mcL (4.3-11.1) H* 02/23/16 03:35 RDW 15.0 % (11.5-14.5) H 02/23/16 03:35 Band Neutrophils % 12.0 % (0-4) H 02/23/16 03:35 Metamyelocytes % 8.0 % (0) H 02/23/16 03:35 Myelocytes % 2.0 % (0) H 02/23/16 03:35 Neutrophils # 78.6 K/mcL (1.6-8.9) H 02/23/16 03:35 Monocytes # 3.1 K/mcL (0.0-1.3) H 02/22/16 03:44 Nucleated RBCs/100 WBC 0.1 /100 WBC (0) H 02/22/16 15:15 Reactive Lymphocytes Present (Not Present) A 02/22/16 03:44 Smudge Cells Present (Not Present) A 02/20/16 08:17 Dohle Bodies Present (Not Present) A 02/17/16 08:01 Large Platelets Present (Not Present) A 02/18/16 04:36 Polychromasia 1+ (Not Present) A 02/21/16 05:07 Poikilocytosis 1+ (Not Present) A 02/21/16 05:07 Anisocytosis 1+ (Not Present) A 02/23/16 03:35 Microcytosis Present (Not Present) A 02/22/16 15:15 Macrocytosis Present (Not Present) A 02/22/16 15:15 PT 20.7 Seconds (9.4-12.1) H 02/21/16 17:20 ABG pH 7.49 pH Units (7.32-7.45) H 02/20/16 12:33 ABG pO2 62 mmHg (85-104) L 02/20/16 12:33 ABG HCO3 29.7 mEQ/L (21-27) H 02/20/16 12:33 ABG Total CO2 30.9 mEq/L (20-26) H 02/20/16 12:33 ABG O2 Saturation 93 % (95-98) L 02/20/16 12:33 ABG Base Excess 5.9 mEq/L (-2.0 to 3.0) H 02/20/16 12:33 Sodium 130 mEq/L (136-145) L 02/23/16 03:35 BUN 45 mg/dL (7-20) H 02/23/16 03:35 Creatinine 1.84 mg/dL (0.57-1.11) H 02/23/16 03:35 Est GFR ( Amer) 32 (> 60) L 02/23/16 03:35 Est GFR (Non-Af Amer) 26 (> 60) L 02/23/16 03:35 Glucose 223 mg/dL (70-99) H 02/23/16 03:35 POC Glucose 154 (58-89) H 02/23/16 11:44 Lactic Acid 2.4 mmol/L (0.5-2.2) H 02/23/16 03:35 Calcium 7.6 mg/dL (8.6-10.8) L 02/23/16 03:35 Ionized Calcium 1.07 mmol/L (1.15-1.35) L 02/23/16 03:35 Phosphorus 5.1 mg/dL (2.3-4.7) H 02/23/16 03:35 Troponin I 0.11 ng/mL (0-0.03) H* 02/21/16 05:07 B-Natriuretic Peptide 160 pg/mL (0-100) H 02/14/16 21:05 Serum Total Protein 4.2 g/dL (6.0-8.3) L 02/23/16 03:35 Albumin 1.6 g/dL (3.5-5.0) L 02/23/16 03:35 Albumin/Globulin Ratio 0.6 (1.1-2.2) L 02/23/16 03:35 Ur Leukocyte Esterase Small (Negative) H 02/20/16 09:04 Urine Microscopic RBC 3-5 per hpf (0-3) H 02/20/16 09:04 Ur Squamous Epith Cells Many per lpf (None-Few) H 02/20/16 09:04 Ur Culture Indicated? YES (NO) A 02/20/16 09:04 Theophylline 8.2 mcg/mL (10.0-20.0) L 02/20/16 17:45 - Clinical Findings Intake & Output: Intake & Output 02/23/16 02/24/16 02/24/16 23:59 07:59 15:59 Intake Total 1415 / 1415 Output Total 0 / 0 50 / 50 Balance 1415 / 1415 -50 / -50 Consult Discharge Plan - Plan Referrals: Dane Thomas MD [Primary Care Provider] - <Sriram Barrett - Last Filed: 02/24/16 15:44> Objective PUL Vital signs: Last Vital Signs Temp 97.3 F L 02/24/16 13:45 Pulse 99 02/24/16 13:45 Resp 18 02/24/16 13:45 BP 57/46 02/24/16 13:45 Pulse Ox 99 02/24/16 10:00 Results - Laboratory Findings CBC and BMP: 02/23/16 03:35 02/23/16 03:35 ABG ABG pH 7.49 pH Units (7.32-7.45) H 02/20/16 12:33 ABG pCO2 39 mmHg (35-45) 02/20/16 12:33 ABG pO2 62 mmHg (85-104) L 02/20/16 12:33 ABG O2 Saturation 93 % (95-98) L 02/20/16 12:33 PT/INR, D-dimer PT 20.7 Seconds (9.4-12.1) H 02/21/16 17:20 Abnormal lab findings: Abnormal lab results WBC 89.3 K/mcL (4.3-11.1) H* 02/23/16 03:35 RDW 15.0 % (11.5-14.5) H 02/23/16 03:35 Band Neutrophils % 12.0 % (0-4) H 02/23/16 03:35 Metamyelocytes % 8.0 % (0) H 02/23/16 03:35 Myelocytes % 2.0 % (0) H 02/23/16 03:35 Neutrophils # 78.6 K/mcL (1.6-8.9) H 02/23/16 03:35 Monocytes # 3.1 K/mcL (0.0-1.3) H 02/22/16 03:44 Nucleated RBCs/100 WBC 0.1 /100 WBC (0) H 02/22/16 15:15 Reactive Lymphocytes Present (Not Present) A 02/22/16 03:44 Smudge Cells Present (Not Present) A 02/20/16 08:17 Dohle Bodies Present (Not Present) A 02/17/16 08:01 Large Platelets Present (Not Present) A 02/18/16 04:36 Polychromasia 1+ (Not Present) A 02/21/16 05:07 Poikilocytosis 1+ (Not Present) A 02/21/16 05:07 Anisocytosis 1+ (Not Present) A 02/23/16 03:35 Microcytosis Present (Not Present) A 02/22/16 15:15 Macrocytosis Present (Not Present) A 02/22/16 15:15 PT 20.7 Seconds (9.4-12.1) H 02/21/16 17:20 ABG pH 7.49 pH Units (7.32-7.45) H 02/20/16 12:33 ABG pO2 62 mmHg (85-104) L 02/20/16 12:33 ABG HCO3 29.7 mEQ/L (21-27) H 02/20/16 12:33 ABG Total CO2 30.9 mEq/L (20-26) H 02/20/16 12:33 ABG O2 Saturation 93 % (95-98) L 02/20/16 12:33 ABG Base Excess 5.9 mEq/L (-2.0 to 3.0) H 02/20/16 12:33 Sodium 130 mEq/L (136-145) L 02/23/16 03:35 BUN 45 mg/dL (7-20) H 02/23/16 03:35 Creatinine 1.84 mg/dL (0.57-1.11) H 02/23/16 03:35 Est GFR ( Amer) 32 (> 60) L 02/23/16 03:35 Est GFR (Non-Af Amer) 26 (> 60) L 02/23/16 03:35 Glucose 223 mg/dL (70-99) H 02/23/16 03:35 POC Glucose 154 (58-89) H 02/23/16 11:44 Lactic Acid 2.4 mmol/L (0.5-2.2) H 02/23/16 03:35 Calcium 7.6 mg/dL (8.6-10.8) L 02/23/16 03:35 Ionized Calcium 1.07 mmol/L (1.15-1.35) L 02/23/16 03:35 Phosphorus 5.1 mg/dL (2.3-4.7) H 02/23/16 03:35 Troponin I 0.11 ng/mL (0-0.03) H* 02/21/16 05:07 B-Natriuretic Peptide 160 pg/mL (0-100) H 02/14/16 21:05 Serum Total Protein 4.2 g/dL (6.0-8.3) L 02/23/16 03:35 Albumin 1.6 g/dL (3.5-5.0) L 02/23/16 03:35 Albumin/Globulin Ratio 0.6 (1.1-2.2) L 02/23/16 03:35 Ur Leukocyte Esterase Small (Negative) H 02/20/16 09:04 Urine Microscopic RBC 3-5 per hpf (0-3) H 02/20/16 09:04 Ur Squamous Epith Cells Many per lpf (None-Few) H 02/20/16 09:04 Ur Culture Indicated? YES (NO) A 02/20/16 09:04 Theophylline 8.2 mcg/mL (10.0-20.0) L 02/20/16 17:45 - Clinical Findings Intake & Output: Intake & Output 02/23/16 02/24/16 02/24/16 23:59 07:59 15:59 Intake Total 1415 / 1415 Output Total 0 / 0 50 / 50 Balance 1415 / 1415 -50 / -50 - Attending Attestation I examined this patient and my medical decision-making was reviewed with the CARPENTRY SPECIALIST/PA/Advanced Practice Nurse/Resident Physician. I agree with the documented findings, disposition and treatment plan as described except to the extent set forth below. Transitioned to comfort care after she clearly was clinically worsening yesterday. D/w daughter extensively at bedside no further medical options and patient clinically clearly in pain with increasing air hunger. Transfer to Hospice floor today. Appreciate Palliative Recs
[2016-02-24] MEDS ORDERED: Ipratropium/Albuterol Neb 3 ML IH SCH (16:00)
--- NOTE | 2016-02-24 17:24 | Death Note ---
Discharge Sum: Summary - Date and Time Date of admission: 02/15/16 04:38 Date of : 02/24/16 Time of : 14:55 - Summary Details: 80 Y/O F with PMH of advanced COPD, PE, HTN, Lung mass admitted initially for acute on chronic respiratory failure secondary to COPDE. Patient subsequently developed hypotension with arrhythmia and was transferred to the ICU for further management. She was noted to have abdominal pain with distension with suspicion for infective colitis which could not be assessed as patient did not have bowel movements. Her WBC continued to rise, patient continued to decompensate with hypotension requiring pressors, despite triple therapy for suspected C.diff colitis. Toxic megacolon was suspected but patient was a poor surgical candidate due to her multiple medical co-morbidities. Patient developed multi-organ failure secondary to colitis with possible toxic megacolon. Family eventually decided to withdraw care and make patient comfortable as she was already on maximal medical therapy with no improvement. She eventually passed on 02/23/13 at 1455. - Additional Data Confirmation of as documented by pronouncing clinician: no pulse Family: at bedside Attending/PCP notified?: Yes Attending physician: Adis Gee MD Was code activated?: No (Patient was DNR-Comfort care only.) Autopsy requested?: No tax examiner notified?: Yes Organ bank notified?: Yes Advance directives: Yes Hospice patient?: No (Was being prepared for home hospice) Discharge Sum: Diag - PCOD Probable Cause of : Septic shock (With multi-organ failure.) Discharge Sum: Prov - Provider Primary care physician: Dane Thomas MD Admitting clinician: Adis Gee Attending physician on admission: Adis Gee Consults: 02/20/16 17:26 Consult to Palliative Care [CONS] Routine Comment: Consulting Provider: [facility] [place] Pronouncing clinician: Earl Sinha
== END 2016-02-24 14:55 | disposition expired | DRG 190 ==
LOC: 3ANU 20:04 → EMEROO 20:04 → 3ANU 23:26 → SUATTDRO 02-15 04:38 → 2NNU 02-20 13:44 → ICNU 02-20 18:47 → 2ANU 02-24 13:39
PROVIDERS: ADMIT Internal Medicine; ATTEND Internal Medicine